=== PATIENT | female | born 1935 | race Caucasian/White ===

== ENCOUNTER 2016-07-09 19:14 | Inpatient (IN) ==
--- NOTE | 2016-07-09 19:47 | Emergency Department Note ---
Elroy Schroeder Brittany, am scribing for, and in the presence of, Marian Moreno DO 19:45. IJosh Debra, DO, personally performed the services described in this documentation, ascribed by Lizzy Abbasi in my presence, and it is both accurate and complete . Arrival - Arrival Chief Complaint: Urogenital - Female Stated Complaint: KIDNEY OR BLADDER PROBLEMS ED Nursing Triage Note: pt presented to triage via w/c with c/o vaginal bleeding /spotting noted when wiping x 4 days. also c/o pain with urination. reports low grade fever at home. tylenol last taken @ 1700 Mode of Arrival: Wheelchair Limitations: No Limitations Source: Patient, RN Notes Reviewed - History of Present Illness HPI Narrative: Ms. Fam is a 80 y/o white female with a past medical history signficant for Renal Failure presenting to the ED with c/o vaginal bleeding and dysuria with an onset of 4 days. She reports that due to her history of Renal Failure and taking Peritoneal Dialysis she makes little to no urine and has noticed the few times she's urinated some vaginal bleeding. Patient reports that with initial onset she noticed some light spotting, but over the course of the past days she has began to notice larger amounts of blood with clots engrossed within. Patient notes that she has also had a low grade fever at home as well with which she took a Tylenol at 1700 this evening. She does take an 81 mg ASA/ day, but denies taking any anticoagulants such as Heparin, Lovenox, or Plavix. She states that she does have an appointment with Dr. Lara on Monday, July 11, 2016. She is a patient of Dr. Heather Fam. Patient has a past medical history of Atrial Fibrillation, CHF, HTN, Mitral Valve Regurgitation, Anxiety Disorders, Depression, Peripheral Neuropathy, Thyroid CA, Rheumatoid Arthritis, Peritoneal Dialysis, Renal Failure, Cardiac Catheterization, Cholecystectomy, Caesarean Section x2, Hysterectomy. Onset (ago): day(s) (4) Consistency: constant Date of Last Menstrual Period: hsyt Allergies/Adverse Reactions: Allergies Allergy/AdvReac Type Severity Reaction Status Date / Time Neuromuscular Blockers, Allergy Intermediate SHORTNESS Verified 07/08/15 14:57 Steroidal OF BREATH regadenoson Allergy Mild Cough Verified 07/08/15 14:57 Sulfa (Sulfonamide Allergy Mild RASH Verified 07/08/15 14:57 Antibiotics) enalaprilat [From Vasotec] AdvReac Mild Cough Verified 07/08/15 14:57 Penicillins AdvReac Mild ITCHING Verified 07/08/15 14:57 Home Medications: Home Medications Medication Instructions Recorded Confirmed Type Magnesium Chloride [Slow Mag] 64 mg PO DAILY 07/15/14 07/09/16 History Metoprolol Succinate 25 mg PO DAILY 07/15/14 07/09/16 History Pantoprazole Tab [Protonix Tab] 40 mg PO BID 07/15/14 07/09/16 History Pentoxifylline [TRENtal] 400 mg PO BID 07/15/14 07/09/16 History Aspirin [Ecotrin] 81 mg PO DAILY 12/28/14 07/09/16 History Calcium Acetate [Phoslo] 1 tablet PO TID 05/25/15 07/09/16 History Pravastatin Sodium 20 mg PO BEDTIME 09/21/15 07/09/16 History Gabapentin 100 mg PO BEDTIME #30 capsule 09/24/15 07/09/16 Rx Diphenoxylate/Atrop 2.5-0.025 1 each PO QID PRN 10/11/15 07/09/16 History [Lomotil Tab] Isosorbide Mononitrate [Isosorbide 60 mg PO DAILY 10/11/15 07/09/16 History Mononitrate ER] Levothyroxine Tab [Synthroid Tab] 137 mcg PO 0700 10/11/15 07/09/16 History ALPRAZolam [Xanax] 0.5 mg PO BEDTIME #30 tablet 10/14/15 07/09/16 Rx Acetaminophen Tab [Tylenol Tab] 650 mg PO Q6H PRN #0 tablet 10/14/15 07/09/16 Rx Amlodipine Besylate [Amlodipine 10 mg PO DAILY 01/11/16 07/09/16 History Besylate] Calcitriol [Calcitriol] 0.5 mcg PO DAILY 01/11/16 07/09/16 History Docusate Sodium Cap [Colace Cap] 100 mg PO BID PRN 07/09/16 07/09/16 History Doxazosin [Cardura] 1 mg PO DAILY 07/09/16 07/09/16 History Hydrocodone/Acetaminophen 0.5 each PO TID 07/09/16 07/09/16 History [Hydrocodon-Acetaminoph 7.5-325] Review of System - Review of System 12 point system: reviewed and no additional remarkable complaints except as stated - Review of System Constitutional: Present: fever Eyes: Absent: vision change Head/Ears/Nose/Throat: Absent: nasal drainage, sore throat Respiratory: Absent: respiratory distress Cardiovascular: Absent: chest pain, palpitations Gastrointestinal: Absent: abdominal pain, nausea, vomiting, diarrhea, constipation, melena, hematochezia Genitourinary female: Present: as per HPI, dysuria Musculoskeletal: Absent: arm pain, back pain, leg pain, neck pain Skin: Absent: rash Neurological: Absent: headache Psychiatric: Absent: anxiety, depression Hematological/Lymphatic: Absent: easy bleeding, easy bruising Medical,Surgical,& Family Hx - Medical History Cardio: History of: Cardiac Dysrhythmia (A FIB), CHF, Hypertension, PVD, Valvular Heart Disease (mitral valve regurgitation), Cardiovascular Problems ( PVD) No history of: Aneurysm, Cerebrovascular Disease, Congenital Heart Disease, CAD, OR, Pacemaker Psychological: History of: Anxiety Disorders, Depression No history of: ADHD, Behavior Problems, Bipolar Disorder, Previous Suicide Attempt, Psychiatric/Substance Abuse Tx, Schizophrenia, Violent Behavior, Psychiatric Problems Neurology: History of: Peripheral Neuropathy No history of: Brain Aneurysm, Cerebral Hemorrhage, Cerebrovascular Accident , Cerebral Palsy, Dementia, Migraine, Multiple Sclerosis, Parkinson's Disease, Seizures, TIA, Vertigo, Neurologocal Cancer HEENT: History of: Ear Problem (GLASSES CATARACTS), Dental Problems (upper and lower dentures) No history of: Eye Problem, Glaucoma, Oral Cancer, HEENT Problems Endocrine: History of: Thyroid Disorder (CANCER RADIATION) No history of: Adrenal Disease, Diabetes Mellitus (IDDM), Diabetes Mellitus ( NIDDM), Dyslipidemia, Endocrine Cancer, Endocrine Problems Rheumatology: History of;: Rheumatoid Arthritis No history of;: Fibromyalgia, Gout, Myasthenia Gravis, Systemic Lupus Erythematosus, Rheumatological Problems Respiratory: No history of: Asthma, Bronchitis, COPD, Intubation, Obstructive Sleep Apnea , Pulmonary Embolism, Pulmonary Hypertension, Pneumonia, Lung Cancer, Respiratory Problems Renal: History of: Dialysis (PERITONEAL), Renal Failure No history of: Renal (Kidney) Cancer, Renal Problems Genitourinary: No history of: Bladder Problem, Kidney Stones, Recurring Urinary Tract Infections, Genitourinary Cancer, Problems Gastrointestinal: History of: GERD, GI Problems (nausea, vomiting, diarrhea started a week ago) No history of: Bowel Obstruction, Clostridium Difficile, Crohn's Disease, Diverticulitis/ Diverticulosis, Esophageal Varices, Gastrointestinal Bleed, Hemorrhoids, Hematochezia, Hepatitis, Liver Problems, Pancreatitis, Polyps, Ulcerative Colitis, Gastrointestinal Cancer Musculoskeletal: History of: Back/Neck Problems (chronic back pain) No history of: Amputation, Degenerative Disk Disease, Herniated Disk, Osteoporosis, Musculoskeletal Cancer, Musculoskeletal Problems Hematology: History of: Anemia, Bleeding Problems (CIRCULATION LEGS) No history of: Blood Transfusion Reaction, Clotting Problems, Sickle Cell Disease, Hematologic Cancer, Blood Disorders Reproductive: History of: Ovarian Cysts No history of: Abnormal Pap Smear, Breast Cancer, Endometriosis, Ectopic , Complication, Sexually Transmitted Disorders, Reproductive Cancer Other: History of: Skin Problems (CANCER) No history of: Anesthesia Reactions, Anaphylaxis, Cancer, Eczema, HIV, Malignant Hyperthermia, MRSA, Vancomycin-Resistant Enterococci, Miscellaneous Medical Problems - Surgical History Cardiac Surgeries: Sugical HX of: Cardiac Catheterization Patient Denies: Cardiac Surgery, Carotid Endarterectomy, Internal Defibrillator, Vascular Access Devices Comment Only: Femoral-Popliteal Bypass Graft (had arterial surgery in June) Thoracic Surgeries: Patient denies;: Kidney (Renal Surgery), Lithotripsy, Nephrectomy, Organ Transplant, Lobectomy Neurologic Surgeries: Patient denies: Brain Aneurysm, Cerebral Hemorrhage, Neurologic Surgery HEENT Surgeries: Surgical HX of: Eye Surgery (REMOVAL CATARACTS), Tonsilectomy & Adenoidectomy Patient denies: Carotid Endarterectomy, Thyroid Surgery Abdominal Surgeries: Surgical HX of: Cholecystectomy Patient denies: Abdominal Surgery, Appendectomy, Colonoscopy, Gastric Bypass Surgery, EGD, Hernia Repair, Splenectomy Reproductive Surgeries: Surgical HX of;: Section (X2), Gynecologic Surgery (hysterectomy), Hysterectomy Patient denies;: Breast Surgery, Cystoscopy, Dilation and Curettage, Genitourinary Surgery, Tubal Ligation Orthopedic Surgeries: Patient denies;: Implanted Devices, Orthopedic Surgery, Spinal Surgery, Total Hip Replacement, Total Knee Replacement - Family History Family History: Reports;: Family Cancer (sisters and a brother with lung cancer) , Family Diabetes (DAD), Family Hypertension (PARENTS), Family Stroke Denies;: Family Anesthesia Reaction, Family Heart Disease, Family Psychiatric Problems - Social History Smoking Status: Never smoker Frequency of Alcohol Use: None Type of Drug Use: None Exam Vital Signs: Vital Signs Temperature 98.3 F 07/09/16 19:20 Pulse Rate 70 07/09/16 19:20 Respiratory Rate 16 07/09/16 19:20 Blood Pressure 153/61 07/09/16 19:20 O2 Sat by Pulse Oximetry 97 07/09/16 19:20 - General General appearance: alert, in no apparent distress - Head Head exam: Present: atraumatic, normocephalic, normal inspection - Eye Eye exam: Present: normal appearance, PERRL, EOMI - ENT ENT exam: Present: normal exam, normal oropharynx - Neck Neck exam: Present: normal inspection, full ROM, trachea midline - Chest Chest inspection: Present: normal inspection, symmetric chest wall rise - Respiratory Respiratory exam: Present: normal lung sounds bilaterally. Absent: rales, rhonchi, wheezes - Cardiovascular Cardiovascular exam: Present: regular rate, normal rhythm, murmur (mid-systolic murmur). Absent: normal heart sounds - Abdominal Exam Abdominal exam: Present: soft, normal bowel sounds, other (peritoneal dialysis catheter). Absent: distention, tenderness - Extremities Exam Extremities exam: Present: normal inspection. Absent: pedal edema - Back Exam Back exam: Present: normal inspection - Neurological Exam Neurological exam: Present: alert, oriented X3, CN II-XII intact. Absent: motor sensory deficit - Psychiatric Psychiatric exam: Present: normal affect, normal mood - Skin Skin exam: Present: warm, dry, intact, normal color Course Course Narrative: spoke with DR Abbasi who will admit pt for Dr Fam. also spoke with DR Lara who will follow pt , requests peritoneal fluid for cell count and culture. will start on Ancef Results - Labs CBC & BMP: 07/09/16 19:42 07/09/16 19:42 Lab Results: I have reviewed the patients labs Labs: Laboratory Tests 07/09/16 19:42 WBC 14.7 H RBC 3.04 L Hgb 9.9 L Hct 28.2 L Plt Count 233 MPV 12.3 H Neut # (Auto) 9.6 H [place] # (Auto) 1.2 H Laboratory Tests 07/09/16 07/09/16 19:42 19:42 INR 1.0 PT Patient/Control Mix 10.4 Circ Anticoag PTT 24.7 D Sodium 136 Potassium 3.8 Chloride 95 L Carbon Dioxide 30 BUN 37 H Creatinine 7.80 H BUN/Creatinine Ratio 4.00 L Calcium 9.7 ALT 11 L Total Protein 6.0 L Albumin 2.5 L Globulin 3.5 Albumin/Globulin Ratio 0.7 L Laboratory Tests 07/09/16 19:42 Blood Type A NEGATIVE Antibody Screen Negative - Diagnostic Findings Procedure: CT Abdomen and Pelvis: report reviewed by me (1. There is a peritoneal dialysis catheter. 2. There is a 3.2 x 2.1 cm periumbilical hernia containing fat. There is moderate wall thickening of the periumbilical hernia, which could be scarring, edema, or inflammation/infection. Recommend clinical correlation. 3. There is a small amount of scattered free peritoneal gas in the abdominal cavity and in the umbilical hernia, which is probably secondary to peritoneal dialysis. Bowel perforation can not be excluded in the presence of free peritoneal air. 4. There is a moderate amount of ascites. 5. There is mild nonspecific anterior intra-abdominal fat stranding, suggesting edema or inflammation/infection including peritonitis. 6. There is mild right hydronephrosis and ureterectasis. 7. There are vague hyperdensity in the right renal collecting system and the right ureter. There is a layering dependent hyperdensity in the bladder. Findings suggest blood in the right urinary tract and in the bladder. Recommend for further workup. 8. There is a tiny right pleural effusion. 9. There is a severe and diffuse narrowing of the left iliac arteries and the left common femoral artery.) Disposition Clinical Impression: Leukocytosis, Peritonitis associated with peritoneal dialysis, Vaginal bleeding Case discussed with: patient, patient's family Disposition: Still a Patient Condition: Stable Time of Disposition: 22:48
[2016-07-09 20:03] LABS: Basophils # 0.1 10*3/uL (0.0-0.2); Basophils % 0.5 % (0.0-0.8); Eosinophils # 0.4 10*3/uL (0.0-0.87); Eosinophils % 2.9 % (0.00-10.9); Hematocrit 28.2 VOL% (35.7-47.0); Hemoglobin 9.9 GM/DL (12.0-16.0); Immature Granulocytes % 0.4 %; Immature Granulocytes Absolute 0.06 #; Lymphocytes # 3.4 10*3/uL (1.4-4.0); Lymphocytes % 22.9 % (21.3-54.2); Mean Corpuscular HGB Conc 35.1 GM/DL (32-36); Mean Corpuscular Hemoglobin 33 PG (27-34); Mean Corpuscular Volume 92.8 FL (87-102); Mean Platelet Volume 12.3 FL (9.6-12.0); Monocytes # 1.2 10*3/uL (0.11-0.8); Monocytes % 8.3 % (1.7-12.7); Neutrophils # 9.6 10*3/uL (1.4-7.4); Platelet Count 233 T/CUMM (130-400); Red Blood Count 3.04 MC/CUMM (3.8-5.5); Red Cell Distribution Width 15.8 % (9.3-17.3); White Blood Count 14.7 T/CUMM (4-12)
[2016-07-09 20:11] LABS: PT Patient Result 10.4 SECS; Partial Thromboplastin Time 24.7 SECS (0-40)
[2016-07-09 20:20] LABS: Alanine Aminotransferase 11 U/L (13-56); Albumin 2.5 G/DL (3.4-5.0); Alkaline Phosphatase 57 U/L (45-117); Aspartate Amino Transferase 17 U/L (0-37); Bilirubin,Total < 0.39 MG/DL (0.2-1.0); Blood Urea Nitrogen 37 MG/DL (7-18); Calcium 9.7 MG/DL (8.5-10.1); Glucose 86 MG/DL (74-106); Potassium 3.8 MMOL/L (3.5-5.1); Sodium 136 MMOL/L (136-145)
[2016-07-09] MEDS ORDERED: ACETAMINOPHEN 325 MG TABLET PO PRN (22:48)
[2016-07-09] MEDS ORDERED: ONDANSETRON 4 MG/2 ML VIAL IV PRN (22:48)
[2016-07-09] MEDS ORDERED: MORPHINE 2 MG/1 ML SYRINGE IV PRN (22:48)
[2016-07-09] MEDS ORDERED: GABAPENTIN 100 MG CAPSULE PO ONE (22:56)
[2016-07-09] MEDS ORDERED: GABAPENTIN 100 MG CAPSULE ONE (22:57)
[2016-07-10] MEDS: SODIUM CHLORIDE 0.9% 1,000 ML IV SCH ×2 (00:36→11:44)
[2016-07-10 02:16] LABS: Neutrophils,Peritoneal Fluid 9 %; RBC,Peritoneal Fluid < 1 T/CUMM
--- NOTE | 2016-07-10 06:11 | CT Report ---
Referring physician: Marian Moreno DO EXAM: CT abdomen and pelvis without contrast DATE: July 09, 2016 COMPARISON: CT abdomen with contrast February 26, 2015 REASON: Vaginal bleeding, elevated white blood cell count TECHNIQUE: Axial images of the abdomen and pelvis were obtained without the use of contrast. Coronal and sagittal reformatted images were also provided. Total DLP is 308.4 mGy*cm. FINDINGS: Lower thorax: There is calcification at the mitral annulus and the calcified granulomas at the lung bases. Scattered bibasilar opacities are also present, likely representing atelectasis and possibly pulmonary edema. There is also minimal bilateral pleural fluid. ABDOMEN: Liver: No suspicious hepatic lesion is identified on this noncontrast study. Gallbladder and bile ducts: The patient is status post cholecystectomy. The common bile duct is prominent but stable, likely secondary to the cholecystectomy status. Pancreas: Unremarkable. Spleen: The spleen is not identified and has likely been surgically resected. Adrenals: Unremarkable. Kidneys and ureters: The kidneys are atrophic, and there are vascular calcifications at the renal ubaldo bilaterally. There is also mild right hydronephrosis. Ill-defined hyperdensity is seen within the right renal collecting system and right ureter and could represent blood products, debris or contrast from a previous study. No definite renal or ureteral calculi are identified. PELVIS: Bladder: There is layering, dependent hyperdensity within the bladder. This could represent blood products, debris or contrast from a previous study. Reproductive: The uterus is not identified, suggesting hysterectomy. The ovaries are not identified. ABDOMEN AND PELVIS: Bowel: There is no evidence of bowel obstruction and no convincing evidence of bowel inflammation. Appendix: The appendix is not identified. Vasculature: The abdominal aorta is ectatic, measuring 2.3 cm below the renal arteries. Prominent calcified plaque is seen at the arteries, particularly at the left iliac arteries and left common femoral artery which appear small in caliber. Stents are noted at the right common iliac artery and right external iliac artery. Peritoneum: There is moderate ascites, which may be related to peritoneal dialysis. A catheter is seen entering at the right lower quadrant with its distal tip curled within the left lower quadrant. This could represent a peritoneal dialysis catheter. Lymph nodes: No suspicious adenopathy is seen. Abdominal/pelvic wall: There is a small fat-containing umbilical hernia as well as a small fat-containing periumbilical hernia. Soft tissue thickening is seen along the margins of the hernias and could represent scarring, edema or inflammation/infection. Minimal air is also seen within the periumbilical hernia, and there is small amount of scattered intraperitoneal air. This could be related to peritoneal dialysis. Mild fat stranding is seen at the right groin and is suspected represent surgical change/scarring. Bones: There is degenerative change at the spine and mild scoliosis. No acute osseous process is seen. IMPRESSION: 1. A peritoneal dialysis catheter is in place, and there is moderate ascites. 2. Minimal air is seen within the periumbilical hernia, and there is small amount of scattered intraperitoneal air. This could be related to peritoneal dialysis, but bowel perforation cannot be excluded. 3. There are small fat-containing umbilical and periumbilical hernias. Soft tissue thickening is seen along the margins of the hernias and could represent scarring, edema or inflammation/infection. Please correlate with clinical findings 4. The kidneys are atrophic. There is also mild right hydronephrosis. 5. Vague hyperdensity is seen within the right renal collecting system and right ureter. There is also layering dependent hyperdensity within the bladder. This could represent blood products, debris or contrast from a recent procedure. 6. Minimal bilateral pleural effusions. There are also mild scattered opacities at both lung bases, likely representing atelectasis and possibly pulmonary edema. 7. There is extensive calcified plaque at the arteries and diffuse narrowing of the left iliac arteries and left common femoral artery. The CT exam was performed using one or more of the following dose reduction techniques: Automated exposure control and adjustment of the mA and/or kV according to patient size. PROCEDURE INTERPRETED AT [facility] DEPARTMENT OF RADIOLOGY Final Report Signed by: Dr. Aryan Horne
[2016-07-10 06:22] LABS: Basophils # 0.1 10*3/uL (0.0-0.2); Basophils % 0.6 % (0.0-0.8); Eosinophils # 0.4 10*3/uL (0.0-0.87); Hematocrit 23.9 VOL% (35.7-47.0); Hemoglobin 8.1 GM/DL (12.0-16.0); Immature Granulocytes % 0.5 %; Immature Granulocytes Absolute 0.05 #; Lymphocytes # 3.1 10*3/uL (1.4-4.0); Lymphocytes % 28.4 % (21.3-54.2); Mean Corpuscular HGB Conc 33.9 GM/DL (32-36); Mean Corpuscular Hemoglobin 32 PG (27-34); Mean Corpuscular Volume 94.8 FL (87-102); Mean Platelet Volume 12.8 FL (9.6-12.0); Monocytes % 9.4 % (1.7-12.7); Neutrophils # 6.2 10*3/uL (1.4-7.4); Neutrophils % 57.1 % (38.7-73.9); Platelet Count 205 T/CUMM (130-400); Red Blood Count 2.52 MC/CUMM (3.8-5.5); White Blood Count 10.9 T/CUMM (4-12)
[2016-07-10 06:42] LABS: Alanine Aminotransferase < 9 U/L (13-56); Alkaline Phosphatase 47 U/L (45-117); Aspartate Amino Transferase 11 U/L (0-37); Blood Urea Nitrogen 39 MG/DL (7-18); Calcium 9.3 MG/DL (8.5-10.1); Glucose 75 MG/DL (74-106); Osmolality,Calculated 282.7 MOS/KG (273-304); Potassium 3.5 MMOL/L (3.5-5.1); Sodium 138 MMOL/L (136-145); Total Protein 4.7 G/DL (6.4-8.3)
[2016-07-10] MEDS: DOCUSATE SODIUM 100 MG CAPSULE PO SCH ×2 (08:33→20:31)
[2016-07-10] MEDS: PANTOPRAZOLE 40 MG TABLET PO SCH (08:33)
[2016-07-10 18:11] LABS: Hematocrit 29.2 VOL% (35.7-47.0); Hemoglobin 9.9 GM/DL (12.0-16.0)
--- NOTE | 2016-07-10 18:34 | Internal Med History&Physical ---
Assessment and Plan (1) Hematuria Status: Acute Current Visit: Yes (2) Debility Status: Chronic Current Visit: No (3) ESRD on peritoneal dialysis Status: Chronic Current Visit: Yes (4) Hypertension Status: Chronic Current Visit: No Qualifiers: Hypertension type: essential hypertension Qualified Code(s): I10 - Essential (primary) hypertension History of Present Illness Chief complaint: acute hematuria History of present illness: Ms. Fam is a 80 year old female with history of HTN, atherosclerotic disease, ESRD on peritoneal dialysis per Dr. Lara, anemia of chronic disease, OA, generalized weakness, history of falls, hypothyroid status post thyroid resection, history thyroid cancer, radiation therapy, who presented to ER with acute hematuria. She has had associated flank and back pain which resolved as of earlier today. Thought to be kidney stone. Dr. Morgan Landeros has been consulted. She has been receiving fluids. Home Medications Medication Instructions Recorded Confirmed Type Magnesium Chloride [Slow Mag] 64 mg PO DAILY 07/15/14 07/09/16 History Metoprolol Succinate 25 mg PO DAILY 07/15/14 07/09/16 History Pantoprazole Tab [Protonix Tab] 40 mg PO BID 07/15/14 07/09/16 History Pentoxifylline [TRENtal] 400 mg PO BID 07/15/14 07/09/16 History Aspirin [Ecotrin] 81 mg PO DAILY 12/28/14 07/09/16 History Calcium Acetate [Phoslo] 1 tablet PO TID 05/25/15 07/09/16 History Pravastatin Sodium 20 mg PO DAILY 09/21/15 07/10/16 History Gabapentin 100 mg PO BEDTIME #30 capsule 09/24/15 07/09/16 Rx Diphenoxylate/Atrop 2.5-0.025 1 each PO QID PRN 10/11/15 07/09/16 History [Lomotil Tab] Isosorbide Mononitrate [Isosorbide 60 mg PO DAILY 10/11/15 07/09/16 History Mononitrate ER] Levothyroxine Tab [Synthroid Tab] 137 mcg PO 0700 10/11/15 07/09/16 History ALPRAZolam [Xanax] 0.5 mg PO BEDTIME #30 tablet 10/14/15 07/09/16 Rx Acetaminophen Tab [Tylenol Tab] 650 mg PO Q6H PRN #0 tablet 10/14/15 07/09/16 Rx Amlodipine Besylate [Amlodipine 10 mg PO DAILY 01/11/16 07/09/16 History Besylate] Calcitriol [Calcitriol] 0.5 mcg PO DAILY 01/11/16 07/09/16 History Docusate Sodium Cap [Colace Cap] 100 mg PO BID PRN 07/09/16 07/09/16 History Doxazosin [Cardura] 1 mg PO DAILY 07/09/16 07/09/16 History Hydrocodone/Acetaminophen 0.5 each PO TID 07/09/16 07/09/16 History [Hydrocodon-Acetaminoph 7.5-325] Allergies Allergy/AdvReac Type Severity Reaction Status Date / Time Neuromuscular Blockers, Allergy Intermediate SHORTNESS Verified 07/08/15 14:57 Steroidal OF BREATH regadenoson Allergy Mild Cough Verified 07/08/15 14:57 Sulfa (Sulfonamide Allergy Mild RASH Verified 07/08/15 14:57 Antibiotics) enalaprilat [From Vasotec] AdvReac Mild Cough Verified 07/08/15 14:57 Penicillins AdvReac Mild ITCHING Verified 07/08/15 14:57 Medical,Surgical,& Family Hx - Medical History Cardio: History of: Cardiac Dysrhythmia (A FIB), CHF, Hypertension, PVD, Valvular Heart Disease (mitral valve regurgitation), Cardiovascular Problems ( PVD) No history of: Aneurysm, Cerebrovascular Disease, Congenital Heart Disease, CAD, [place], Pacemaker Psychological: History of: Anxiety Disorders, Depression No history of: ADHD, Behavior Problems, Bipolar Disorder, Previous Suicide Attempt, Psychiatric/Substance Abuse Tx, Schizophrenia, Violent Behavior, Psychiatric Problems Neurology: History of: Peripheral Neuropathy No history of: Brain Aneurysm, Cerebral Hemorrhage, Cerebrovascular Accident , Cerebral Palsy, Dementia, Migraine, Multiple Sclerosis, Parkinson's Disease, Seizures, TIA, Vertigo, Neurologocal Cancer HEENT: History of: Ear Problem (GLASSES CATARACTS), Dental Problems (upper and lower dentures) No history of: Eye Problem, Glaucoma, Oral Cancer, HEENT Problems Endocrine: History of: Thyroid Disorder (CANCER RADIATION) No history of: Adrenal Disease, Diabetes Mellitus (IDDM), Diabetes Mellitus ( NIDDM), Dyslipidemia, Endocrine Cancer, Endocrine Problems Rheumatology: History of;: Rheumatoid Arthritis No history of;: Fibromyalgia, Gout, Myasthenia Gravis, Systemic Lupus Erythematosus, Rheumatological Problems Respiratory: No history of: Asthma, Bronchitis, COPD, Intubation, Obstructive Sleep Apnea , Pulmonary Embolism, Pulmonary Hypertension, Pneumonia, Lung Cancer, Respiratory Problems Renal: History of: Dialysis (PERITONEAL), Renal Failure No history of: Renal (Kidney) Cancer, Renal Problems Genitourinary: No history of: Bladder Problem, Kidney Stones, Recurring Urinary Tract Infections, Genitourinary Cancer, Problems Gastrointestinal: History of: GERD, GI Problems (nausea, vomiting, diarrhea started a week ago) No history of: Bowel Obstruction, Clostridium Difficile, Crohn's Disease, Diverticulitis/ Diverticulosis, Esophageal Varices, Gastrointestinal Bleed, Hemorrhoids, Hematochezia, Hepatitis, Liver Problems, Pancreatitis, Polyps, Ulcerative Colitis, Gastrointestinal Cancer Musculoskeletal: History of: Back/Neck Problems (chronic back pain) No history of: Amputation, Degenerative Disk Disease, Herniated Disk, Osteoporosis, Musculoskeletal Cancer, Musculoskeletal Problems Hematology: History of: Anemia, Bleeding Problems (CIRCULATION LEGS) No history of: Blood Transfusion Reaction, Clotting Problems, Sickle Cell Disease, Hematologic Cancer, Blood Disorders Reproductive: History of: Ovarian Cysts No history of: Abnormal Pap Smear, Breast Cancer, Endometriosis, Ectopic , Complication, Sexually Transmitted Disorders, Reproductive Cancer Other: History of: Skin Problems (CANCER) No history of: Anesthesia Reactions, Anaphylaxis, Cancer, Eczema, HIV, Malignant Hyperthermia, MRSA, Vancomycin-Resistant Enterococci, Miscellaneous Medical Problems - Surgical History Cardiac Surgeries: Sugical HX of: Cardiac Catheterization Patient Denies: Cardiac Surgery, Carotid Endarterectomy, Internal Defibrillator, Vascular Access Devices Comment Only: Femoral-Popliteal Bypass Graft (had arterial surgery in June) Thoracic Surgeries: Patient denies;: Kidney (Renal Surgery), Lithotripsy, Nephrectomy, Organ Transplant, Lobectomy Neurologic Surgeries: Patient denies: Brain Aneurysm, Cerebral Hemorrhage, Neurologic Surgery HEENT Surgeries: Surgical HX of: Eye Surgery (REMOVAL CATARACTS), Tonsilectomy & Adenoidectomy Patient denies: Carotid Endarterectomy, Thyroid Surgery Abdominal Surgeries: Surgical HX of: Cholecystectomy Patient denies: Abdominal Surgery, Appendectomy, Colonoscopy, Gastric Bypass Surgery, EGD, Hernia Repair, Splenectomy Reproductive Surgeries: Surgical HX of;: Section (X2), Gynecologic Surgery (hysterectomy), Hysterectomy Patient denies;: Breast Surgery, Cystoscopy, Dilation and Curettage, Genitourinary Surgery, Tubal Ligation Orthopedic Surgeries: Patient denies;: Implanted Devices, Orthopedic Surgery, Spinal Surgery, Total Hip Replacement, Total Knee Replacement Additional Surgical History: thyroidectomy - Family History Family History: Reports;: Family Cancer (sisters and a brother with lung cancer) , Family Diabetes (DAD), Family Hypertension (PARENTS), Family Stroke Denies;: Family Anesthesia Reaction, Family Heart Disease, Family Psychiatric Problems - Social History Smoking Status: Never smoker Frequency of Alcohol Use: None Type of Drug Use: None Marital Status: Lives With:: Spouse Functional capacity: uses cane/walker - Constitutional Constitutional: Present: fatigue - Cardiovascular Cardiovascular: Absent: chest pain at rest - Respiratory Respiratory: Absent: dyspnea on exertion - Gastrointestinal Gastrointestinal: Present: abdominal pain, nausea - Genitourinary Genitourinary: Present: flank pain, hematuria - Musculoskeletal Musculoskeletal: Present: arthralgias Exam - Constitutional Vitals: Period Temp Pulse Resp BP Sys/Sky Pulse Ox Last 24 Hr 97.4 F-98.8 F 64-81 12-18 128-168/56-91 92-98 General appearance: no acute distress - Head Head exam: Present: normocephalic - Eye Eye exam: Present: EOMI - Respiratory Respiratory exam: Present: clear to auscultation bilaterally. Absent: rales, rhonchi, wheezes - Cardiovascular Cardiovascular exam: Present: regular rate and rhythm - GI/Abdominal GI/Abdominal exam: Present: normal bowel sounds, soft. Absent: tenderness - Extremities Exam Extremities exam: Absent: edema - Neurological Exam Neurological exam: Present: alert, oriented X3, CN II-XII intact - Psychiatric Psychiatric exam: Present: normal affect, normal mood - Skin Skin exam: Present: warm, dry Results - Labs CBC & BMP: 07/11/16 07:25 07/11/16 07:25 - Diagnostic Findings Procedure: CT Abdomen and Pelvis: report reviewed by me (mild right hydronephrosis)
[2016-07-10] MEDS ORDERED: DOCUSATE SODIUM 100 MG CAPSULE PO PRN (18:49)
[2016-07-10] MEDS ORDERED: DIPHENOXYLATE/ATROPINE 2.5-0.025 MG TABLET PO PRN (18:49)
[2016-07-10] MEDS ORDERED: ACETAMINOPHEN 325 MG TABLET PO PRN (18:49)
[2016-07-10] MEDS: CALCIUM ACETATE 667 MG CAPSULE PO SCH (20:31)
[2016-07-10] MEDS: PENTOXIFYLLINE 400 MG TABLET PO SCH (20:31)
--- NOTE | 2016-07-10 20:53 | Nephrology Consult Note ---
History of Present Illness Chief complaint: ESRD, hematuria History of present illness: Ms. Fam is a 80 year old female with ESRD on peritoneal dialysis who presented with a four-day history of intermittent dysuria and hematuria. She has had a low-grade fever but no chills. She reports some mild right lower quadrant tenderness. She has had no difficulty with her PD exchanges. PD fluid has remained clear. She denies nausea. She has had no shortness of breath or chest pain. Home Medications Medication Instructions Recorded Confirmed Type Magnesium Chloride [Slow Mag] 64 mg PO DAILY 07/15/14 07/09/16 History Metoprolol Succinate 25 mg PO DAILY 07/15/14 07/09/16 History Pantoprazole Tab [Protonix Tab] 40 mg PO BID 07/15/14 07/09/16 History Pentoxifylline [TRENtal] 400 mg PO BID 07/15/14 07/09/16 History Aspirin [Ecotrin] 81 mg PO DAILY 12/28/14 07/09/16 History Calcium Acetate [Phoslo] 1 tablet PO TID 05/25/15 07/09/16 History Pravastatin Sodium 20 mg PO DAILY 09/21/15 07/10/16 History Gabapentin 100 mg PO BEDTIME #30 capsule 09/24/15 07/09/16 Rx Diphenoxylate/Atrop 2.5-0.025 1 each PO QID PRN 10/11/15 07/09/16 History [Lomotil Tab] Isosorbide Mononitrate [Isosorbide 60 mg PO DAILY 10/11/15 07/09/16 History Mononitrate ER] Levothyroxine Tab [Synthroid Tab] 137 mcg PO 0700 10/11/15 07/09/16 History ALPRAZolam [Xanax] 0.5 mg PO BEDTIME #30 tablet 10/14/15 07/09/16 Rx Acetaminophen Tab [Tylenol Tab] 650 mg PO Q6H PRN #0 tablet 10/14/15 07/09/16 Rx Amlodipine Besylate [Amlodipine 10 mg PO DAILY 01/11/16 07/09/16 History Besylate] Calcitriol [Calcitriol] 0.5 mcg PO DAILY 01/11/16 07/09/16 History Docusate Sodium Cap [Colace Cap] 100 mg PO BID PRN 07/09/16 07/09/16 History Doxazosin [Cardura] 1 mg PO DAILY 07/09/16 07/09/16 History Hydrocodone/Acetaminophen 0.5 each PO TID 07/09/16 07/09/16 History [Hydrocodon-Acetaminoph 7.5-325] Allergies Allergy/AdvReac Type Severity Reaction Status Date / Time Neuromuscular Blockers, Allergy Intermediate SHORTNESS Verified 07/08/15 14:57 Steroidal OF BREATH regadenoson Allergy Mild Cough Verified 07/08/15 14:57 Sulfa (Sulfonamide Allergy Mild RASH Verified 07/08/15 14:57 Antibiotics) enalaprilat [From Vasotec] AdvReac Mild Cough Verified 07/08/15 14:57 Penicillins AdvReac Mild ITCHING Verified 07/08/15 14:57 Medical,Surgical,& Family Hx - Medical History Cardio: History of: Cardiac Dysrhythmia (A FIB), CHF, Hypertension, PVD, Valvular Heart Disease (mitral valve regurgitation), Cardiovascular Problems ( PVD) No history of: Aneurysm, Cerebrovascular Disease, Congenital Heart Disease, CAD, [place], Pacemaker Psychological: History of: Anxiety Disorders, Depression No history of: ADHD, Behavior Problems, Bipolar Disorder, Previous Suicide Attempt, Psychiatric/Substance Abuse Tx, Schizophrenia, Violent Behavior, Psychiatric Problems Neurology: History of: Peripheral Neuropathy No history of: Brain Aneurysm, Cerebral Hemorrhage, Cerebrovascular Accident , Cerebral Palsy, Dementia, Migraine, Multiple Sclerosis, Parkinson's Disease, Seizures, TIA, Vertigo, Neurologocal Cancer HEENT: History of: Ear Problem (GLASSES CATARACTS), Dental Problems (upper and lower dentures) No history of: Eye Problem, Glaucoma, Oral Cancer, HEENT Problems Endocrine: History of: Thyroid Disorder (CANCER RADIATION) No history of: Adrenal Disease, Diabetes Mellitus (IDDM), Diabetes Mellitus ( NIDDM), Dyslipidemia, Endocrine Cancer, Endocrine Problems Rheumatology: History of;: Rheumatoid Arthritis No history of;: Fibromyalgia, Gout, Myasthenia Gravis, Systemic Lupus Erythematosus, Rheumatological Problems Respiratory: No history of: Asthma, Bronchitis, COPD, Intubation, Obstructive Sleep Apnea , Pulmonary Embolism, Pulmonary Hypertension, Pneumonia, Lung Cancer, Respiratory Problems Renal: History of: Dialysis (PERITONEAL), Renal Failure No history of: Renal (Kidney) Cancer, Renal Problems Genitourinary: No history of: Bladder Problem, Kidney Stones, Recurring Urinary Tract Infections, Genitourinary Cancer, Problems Gastrointestinal: History of: GERD, GI Problems (nausea, vomiting, diarrhea started a week ago) No history of: Bowel Obstruction, Clostridium Difficile, Crohn's Disease, Diverticulitis/ Diverticulosis, Esophageal Varices, Gastrointestinal Bleed, Hemorrhoids, Hematochezia, Hepatitis, Liver Problems, Pancreatitis, Polyps, Ulcerative Colitis, Gastrointestinal Cancer Musculoskeletal: History of: Back/Neck Problems (chronic back pain) No history of: Amputation, Degenerative Disk Disease, Herniated Disk, Osteoporosis, Musculoskeletal Cancer, Musculoskeletal Problems Hematology: History of: Anemia, Bleeding Problems (CIRCULATION LEGS) No history of: Blood Transfusion Reaction, Clotting Problems, Sickle Cell Disease, Hematologic Cancer, Blood Disorders Reproductive: History of: Ovarian Cysts No history of: Abnormal Pap Smear, Breast Cancer, Endometriosis, Ectopic , Complication, Sexually Transmitted Disorders, Reproductive Cancer Other: History of: Skin Problems (CANCER) No history of: Anesthesia Reactions, Anaphylaxis, Cancer, Eczema, HIV, Malignant Hyperthermia, MRSA, Vancomycin-Resistant Enterococci, Miscellaneous Medical Problems - Surgical History Cardiac Surgeries: Sugical HX of: Cardiac Catheterization Patient Denies: Cardiac Surgery, Carotid Endarterectomy, Internal Defibrillator, Vascular Access Devices Comment Only: Femoral-Popliteal Bypass Graft (had arterial surgery in June) Thoracic Surgeries: Patient denies;: Kidney (Renal Surgery), Lithotripsy, Nephrectomy, Organ Transplant, Lobectomy Neurologic Surgeries: Patient denies: Brain Aneurysm, Cerebral Hemorrhage, Neurologic Surgery HEENT Surgeries: Surgical HX of: Eye Surgery (REMOVAL CATARACTS), Tonsilectomy & Adenoidectomy Patient denies: Carotid Endarterectomy, Thyroid Surgery Abdominal Surgeries: Surgical HX of: Cholecystectomy Patient denies: Abdominal Surgery, Appendectomy, Colonoscopy, Gastric Bypass Surgery, EGD, Hernia Repair, Splenectomy Reproductive Surgeries: Surgical HX of;: Section (X2), Gynecologic Surgery (hysterectomy), Hysterectomy Patient denies;: Breast Surgery, Cystoscopy, Dilation and Curettage, Genitourinary Surgery, Tubal Ligation Orthopedic Surgeries: Patient denies;: Implanted Devices, Orthopedic Surgery, Spinal Surgery, Total Hip Replacement, Total Knee Replacement - Family History Family History: Reports;: Family Cancer (sisters and a brother with lung cancer) , Family Diabetes (DAD), Family Hypertension (PARENTS), Family Stroke Denies;: Family Anesthesia Reaction, Family Heart Disease, Family Psychiatric Problems - Social History Smoking Status: Never smoker Frequency of Alcohol Use: None Type of Drug Use: None Review of Systems 12 point system: reviewed and no additional remarkable complaints except as stated Exam - Vital Signs Vital signs: Period Temp Pulse Resp BP Sys/Sky Pulse Ox Last 24 Hr 97.4 F-98.8 F 64-81 12-18 128-168/56-91 92-98 Exam: Gen.: Alert and oriented x3. ENT: Pupils equal round reactive to light. EOMs intact. Mucous membranes moist. Neck: Supple. No JVD or bruit. Cardiovascular: Regular rate and rhythm. No murmur rub or gallop Lungs: Clear Abdomen: Soft. Nontender. Positive bowel sounds. No organomegaly. No CVA tenderness. PD catheter shows no sign of infection Extremities: No edema Results - Labs CBC & BMP: 07/10/16 18:05 07/10/16 05:42 Assessment and Plan (1) ESRD on peritoneal dialysis Status: Chronic Assessment and plan: 80-year-old woman admitted with: * ESRD. She is on peritoneal dialysis. Volume status normal. No clinical signs of peritonitis. PD fluid WBC 19 * Hematuria. Today she had some right-sided pelvic pain followed by gross hematuria and relief of her pain. CT scan showed? Blood in right ureter and mild hydronephrosis. Urology has been consulted * Paroxysmal SVT * Peripheral vascular disease * Hypertension. Controlled Current Visit: No (2) Hematuria Status: Acute Current Visit: Yes (3) Hypertension Status: Chronic Current Visit: No Qualifiers: Hypertension type: essential hypertension Qualified Code(s): I10 - Essential (primary) hypertension (4) PAF (paroxysmal atrial fibrillation) Status: Chronic Current Visit: No (5) Peripheral vascular disease Status: Chronic Current Visit: No (6) Rheumatoid arthritis Status: Chronic Current Visit: No Qualifiers: Rheumatoid arthritis location: knee Laterality: bilateral
[2016-07-11] MEDS: SODIUM CHLORIDE 0.9% 1,000 ML IV SCH ×2 (00:40→11:52)
[2016-07-11 07:48] LABS: Basophils # 0.1 10*3/uL (0.0-0.2); Basophils % 0.5 % (0.0-0.8); Eosinophils # 0.2 10*3/uL (0.0-0.87); Eosinophils % 1.4 % (0.00-10.9); Hematocrit 30.8 VOL% (35.7-47.0); Hemoglobin 10.7 GM/DL (12.0-16.0); Immature Granulocytes % 0.5 %; Immature Granulocytes Absolute 0.08 #; Lymphocytes # 2.2 10*3/uL (1.4-4.0); Lymphocytes % 14.6 % (21.3-54.2); Mean Corpuscular HGB Conc 34.7 GM/DL (32-36); Mean Corpuscular Hemoglobin 33 PG (27-34); Mean Corpuscular Volume 94.5 FL (87-102); Mean Platelet Volume 12.8 FL (9.6-12.0); Monocytes % 6.4 % (1.7-12.7); Neutrophils # 11.4 10*3/uL (1.4-7.4); Neutrophils % 76.6 % (38.7-73.9); Platelet Count 256 T/CUMM (130-400); Red Blood Count 3.26 MC/CUMM (3.8-5.5); Red Cell Distribution Width 15.7 % (9.3-17.3); White Blood Count 14.9 T/CUMM (4-12)
[2016-07-11 08:15] LABS: Alanine Aminotransferase < 6 U/L (13-56); Albumin 2.5 G/DL (3.4-5.0); Alkaline Phosphatase 68 U/L (45-117); Aspartate Amino Transferase 16 U/L (0-37); Blood Urea Nitrogen 40 MG/DL (7-18); Cholesterol 171 MG/DL (50-200); Glucose 132 MG/DL (74-106); HDL Cholesterol 76 MG/DL (40-60); Magnesium 2.5 MG/DL (1.8-2.4); Phosphorous 5.7 MG/DL (2.5-4.9); Risk Ratio 2.25; Sodium 136 MMOL/L (136-145); Total Protein 6.5 G/DL (6.4-8.3); Triglycerides 55 MG/DL (2-150)
[2016-07-11] MEDS ORDERED: ASPIRIN EC 81 MG TABLET PO SCH (09:00)
[2016-07-11] MEDS: DOXAZOSIN 1 MG TABLET PO SCH (09:22)
[2016-07-11] MEDS: amLODIPine 10 MG TABLET PO SCH (09:24)
[2016-07-11] MEDS: CALCITRIOL 0.5 MCG CAPSULE PO SCH (09:24)
[2016-07-11] MEDS: CALCIUM ACETATE 667 MG CAPSULE PO SCH ×3 (09:24→20:53)
[2016-07-11] MEDS: METOPROLOL SUCCINATE XL 25 MG TABLET PO SCH (09:24)
[2016-07-11] MEDS: DOCUSATE SODIUM 100 MG CAPSULE PO SCH ×2 (09:24→20:53)
[2016-07-11] MEDS: PENTOXIFYLLINE 400 MG TABLET PO SCH (09:25)
[2016-07-11] MEDS: ISOSORBIDE MONONITRATE 60 MG TABLET PO SCH (09:25)
[2016-07-11] MEDS: PANTOPRAZOLE 40 MG TABLET PO SCH (09:25)
--- NOTE | 2016-07-11 11:24 | Urology Consultation ---
Assessment and Plan - Time spent with patient Time spent with patient: Greater than 30 minutes (1) Mass of right kidney Status: Acute Current Visit: Yes (2) Hematuria Status: Acute Assessment and plan: Needs ureteroscopy but we will consult cardiology and anesthesia. Question of scheduling and probably have to wait till next week or so. Current Visit: Yes History of Present Illness - Data of Consult Patient: new to practice Consult date: 07/11/16 Requesting Physician: Heather Fam - Consult Narrative Reason for consult: Hematuria, right hydronephrosis, right ureteral/renal pelvic mass History of present illness: Ms. Fam is a 81 year old female who I know her briefly because I know her is a patient. She been on peritoneal dialysis for 6 years. Recently she said sounds like gross hematuria. She voids about once a day and apparently has been a lot of congealed blood. She does void at times that is clear. She was a smoker quit about 20 years but she has a [id number] history of smoking. She has had some right flank pain. She was admitted for hematuria. CT scan reveals a mass in the right proximal ureter/renal pelvis with mild hydronephrosis. No stones seen. She needs ureteroscopy. Apparently she has a difficult time with recovery from anesthetics and I think it is related to peritoneal dialysis with her slow elimination of the anesthetics compared to hemo-. She also sees cardiology which we will ask him to come by. Difficulty with time frame as by next few days I have a very busy schedule and then on the Sunday I am out of town. So will probably be next week at the earliest or may be even a week after for acute get to schedule this. I will consult Dr. Sorto consult anesthesia preparation. CC: Heather Fam, DO - Home Medications and Allergies Home Medications: Home Medications Medication Instructions Recorded Confirmed Type Magnesium Chloride [Slow Mag] 64 mg PO DAILY 07/15/14 07/09/16 History Metoprolol Succinate 25 mg PO DAILY 07/15/14 07/09/16 History Pantoprazole Tab [Protonix Tab] 40 mg PO BID 07/15/14 07/09/16 History Pentoxifylline [TRENtal] 400 mg PO BID 07/15/14 07/09/16 History Aspirin [Ecotrin] 81 mg PO DAILY 12/28/14 07/09/16 History Calcium Acetate [Phoslo] 1 tablet PO TID 05/25/15 07/09/16 History Pravastatin Sodium 20 mg PO DAILY 09/21/15 07/10/16 History Gabapentin 100 mg PO BEDTIME #30 capsule 09/24/15 07/09/16 Rx Diphenoxylate/Atrop 2.5-0.025 1 each PO QID PRN 10/11/15 07/09/16 History [Lomotil Tab] Isosorbide Mononitrate [Isosorbide 60 mg PO DAILY 10/11/15 07/09/16 History Mononitrate ER] Levothyroxine Tab [Synthroid Tab] 137 mcg PO 0700 10/11/15 07/09/16 History ALPRAZolam [Xanax] 0.5 mg PO BEDTIME #30 tablet 10/14/15 07/09/16 Rx Acetaminophen Tab [Tylenol Tab] 650 mg PO Q6H PRN #0 tablet 10/14/15 07/09/16 Rx Amlodipine Besylate [Amlodipine 10 mg PO DAILY 01/11/16 07/09/16 History Besylate] Calcitriol [Calcitriol] 0.5 mcg PO DAILY 01/11/16 07/09/16 History Docusate Sodium Cap [Colace Cap] 100 mg PO BID PRN 07/09/16 07/09/16 History Doxazosin [Cardura] 1 mg PO DAILY 07/09/16 07/09/16 History Hydrocodone/Acetaminophen 0.5 each PO TID 07/09/16 07/09/16 History [Hydrocodon-Acetaminoph 7.5-325] Allergies/Adverse Reactions: Allergies Allergy/AdvReac Type Severity Reaction Status Date / Time Neuromuscular Blockers, Allergy Intermediate SHORTNESS Verified 07/08/15 14:57 Steroidal OF BREATH regadenoson Allergy Mild Cough Verified 07/08/15 14:57 Sulfa (Sulfonamide Allergy Mild RASH Verified 07/08/15 14:57 Antibiotics) enalaprilat [From Vasotec] AdvReac Mild Cough Verified 07/08/15 14:57 Penicillins AdvReac Mild ITCHING Verified 07/08/15 14:57 - Genitourinary Genitourinary: Present: as per HPI, abnormal vaginal bleeding, dysuria, flank pain (Right), hematuria, vaginal discharge Exam - Constitutional Vitals: Period Temp Pulse Resp BP Sys/Sky Pulse Ox Last 24 Hr 98 F-99.9 F 64-82 16-20 145-160/56-78 93-96 - GI/Abdominal GI/Abdominal exam: Present: soft, other (Hernial dialysis catheter right lower quadrant). Absent: ascites, distended, firm, guarding, hernia, tenderness, rebound - Genitourinary Genitourinary: external genitalia normal Results - Labs CBC & BMP: 07/11/16 07:25 07/11/16 07:25 Lab Results: I have reviewed the past 24 hour labs - Diagnostic Findings Procedure: CT Abdomen and Pelvis: image reviewed by me (Soft tissue mass right proximal ureter and renal pelvis)
--- NOTE | 2016-07-11 19:14 | Internal Med Progress Note ---
Assessment and Plan (1) Hematuria Status: Acute Current Visit: Yes (2) Debility Status: Chronic Current Visit: No (3) ESRD on peritoneal dialysis Status: Chronic Current Visit: Yes (4) Hypertension Status: Chronic Current Visit: No Qualifiers: Hypertension type: essential hypertension Qualified Code(s): I10 - Essential (primary) hypertension (5) Mass of right kidney Problem details: possible associated bladder mass Status: Acute Current Visit: Yes Internal Medicine - PN: Subj Interval history: Ms. Fam is a 80 year old female with history of HTN, atherosclerotic disease, ESRD on peritoneal dialysis per Dr. Lara, anemia of chronic disease, OA, generalized weakness, history of falls, hypothyroid status post thyroid resection, history thyroid cancer, radiation therapy, who presented to ER with acute hematuria. She has had associated flank and back pain which resolved as of earlier today. Thought to be kidney stone. Dr. Morgan Landeros has been consulted. She has been receiving fluids. Sunday, she reports feeling better today. Imaging does not reveal kidney stones but rather possible bladder wall mass. Dr. Morgan Landeros to pursue cystoscopy, hopefully within a couple days. She may have to have this procedure outpatient because of scheduling conflicts. The severe flank pain could have been result of blood collection causing pressure. She reports after episode of hematuria, the pain resolved. Exam (Progress Note) - Constitutional Vitals: Period Temp Pulse Resp BP Sys/Sky Pulse Ox Last 24 Hr 98.1 F-99.9 F 72-82 16-20 149-160/60-78 90-96 Exam: General appearance: no acute distress - Respiratory Respiratory exam: Present: clear to auscultation bilaterally - Cardiovascular Cardiovascular exam: Present: regular rate and rhythm - GI/Abdominal GI/Abdominal exam: Present: normal bowel sounds, soft. Absent: tenderness - Extremities Exam Extremities exam: Absent: edema - Neurological Exam Neurological exam: Present: alert, oriented - Psychiatric Psychiatric exam: Present: normal affect, normal mood - Skin Skin exam: Present: warm, dry Results - Labs CBC & BMP: 07/12/16 04:47 07/12/16 04:47
[2016-07-11] MEDS ORDERED: GABAPENTIN 100 MG CAPSULE PO SCH (21:00)
[2016-07-11] MEDS ORDERED: ALPRAZolam 0.25 MG TABLET PO SCH (21:00)
--- NOTE | 2016-07-11 21:18 | EKG Report ---
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
--- NOTE | 2016-07-11 22:12 | Cardiology Consult Note ---
Jorge Schroeder Vanessa, RN, am scribing for, and in the presence of, Mary Loredo MD 22:09. Assessment and Plan - Time spent with patient Time spent with patient: Greater than 30 minutes (due to assessment, planning, documentation, and medication review) (1) Preoperative cardiovascular examination Status: Acute Assessment and plan: SEE PLAN OF CARE LISTED BELOW. Current Visit: Yes (2) Mass of right kidney Status: Acute Assessment and plan: SEE PLAN OF CARE LISTED BELOW. Current Visit: Yes (3) Diastolic CHF, chronic Status: Chronic Assessment and plan: SEE PLAN OF CARE LISTED BELOW. Current Visit: Yes (4) Hematuria Status: Acute Assessment and plan: SEE PLAN OF CARE LISTED BELOW. Current Visit: Yes (5) Leukocytosis Status: Acute Assessment and plan: SEE PLAN OF CARE LISTED BELOW. Current Visit: Yes (6) ESRD on peritoneal dialysis Status: Chronic Assessment and plan: SEE PLAN OF CARE LISTED BELOW. Current Visit: Yes (7) Hypertension Status: Chronic Assessment and plan: SEE PLAN OF CARE LISTED BELOW. Current Visit: No Qualifiers: Hypertension type: essential hypertension Qualified Code(s): I10 - Essential (primary) hypertension (8) PAF (paroxysmal atrial fibrillation) Status: Chronic Assessment and plan: SEE PLAN OF CARE LISTED BELOW. Current Visit: No (9) Peripheral vascular disease Status: Chronic Assessment and plan: SEE PLAN OF CARE LISTED BELOW. Current Visit: No (10) Rheumatoid arthritis Status: Chronic Assessment and plan: SEE PLAN OF CARE LISTED BELOW. Current Visit: No Qualifiers: Rheumatoid arthritis location: knee Laterality: bilateral (11) Hyperlipidemia Status: Chronic Assessment and plan: SEE PLAN OF CARE LISTED BELOW. Current Visit: Yes (12) Hypothyroidism (acquired) Status: Chronic Assessment and plan: SEE PLAN OF CARE LISTED BELOW. Current Visit: Yes (13) Bilateral carotid artery disease Status: Chronic Assessment and plan: SEE PLAN OF CARE LISTED BELOW. Current Visit: Yes History of Present Illness - Data of Consult Patient: known to practice within the last 3 years Consult date: 07/11/16 Requesting Physician: Morgan Landeros Primary care physician: Shaggy Dsouza - Consult Narrative Reason for consult: preoperative cardiovascular exam History of present illness: PRIMARY MACHINIST BENCH: DR. FEMI KING PCP: DR. SHAGGY DSOUZA CARDIOLOGY CONSULT NOTE: PREOPERATIVE CARDIOVASCULAR EXAM Ms. Dsouza is a 81 year old white female who was previously followed by Dr. Alireza Reynolds for several years and has recently established care with Dr. King as her primary sharepoint manager. She has risk factors significant for: hypertension , hyperlipidemia, former smoking, and family history of premature coronary artery disease. Patient does have a history of hypertensive heart disease but no obstructive coronary artery disease appreciated. Past medical history includes paroxysmal atrial fibrillation, chronic diastolic congestive heart failure, end-stage renal disease with peritoneal dialysis, chronic anemia, peripheral vascular disease, carotid artery disease, and hypothyroidism. She has arthritis and chronic pain routinely followed by Dr. Steward. Past surgical history includes bilateral femoral endarterectomies and bilateral iliac stenting in October 2014, cholecystectomy, hysterectomy, thyroid resection due to thyroid cancer. Patient presented to [facility] on 07/09 with complaints of flank pain, back pain, intermittent dysurina, and gross hematuria with onset 4 days prior. She still continues to make some urine which has been clear by history, but recently when she voids about once a day, she had noticed a lot of bloody clots. She was admitted to [facility] for per internal medicine. CT scan since admission reveals a mass of the right proximal ureter and renal pelvis with mild hydronephrosis. Urology has been consulted for further evaluation, and she will need ureteroscopy. Nephrology is following patient during admission. Cardiology has been consulted for preoperative cardiovascular exam. Patient was last evaluated by Dr. King in clinic on May 05, and May 16, 2016. It is noted she had had a chronic recurrent bleeding issue from her throat and ENT is following her. Patient doing well on her present medical regimen for PAF and had no breakthrough rhythm disturbance. Denied palpitation , and EKG was noted to be sinus rhythm. Carotid Doppler ultrasound for bilateral carotid bruits revealed bilateral 60-79% internal carotid artery stenosis. 2D echocardiogram on May 05 revealed LV ejection fraction 60% with some concentric LVH. There was some calcification of valves but normal function and motion. There was moderate to severe mitral regurgitation, mild TR , and moderate pulmonary hypertension with a PA pressure 57 mmHg. She has a documented chronic right bundle branch block. Her most recent nuclear SPECT scan was in June 2014 during evaluation for surgical clearance. SPECT scan revealed normal wall motion, no ischemic changes, breast attenuation present. Review of old hospital record notes during hospital admission in 2013, patient did experience angina but after workup was found to be secondary to atrial fibrillation with rapid ventricular response. Upon exam, patient is awake and alert in no acute distress. Patient's is present at bedside. Patient has not had any recent or current chest pain. She has chronic stable dyspnea on exertion but overall is unchanged. Her functional status is limited by some other orthopedic and neurologic limitations that require her to ambulate slowly with a walker. She would not be able to climb 2 flights of stairs. Denies recent or current orthopnea, PND, palpitation, presyncope, or other cardiac complaint. Systolic BP ranging 145- 160 systolic. Pulse is 70s and regular by exam. Patient has a history of chronic electrolyte abnormalities, but currently she appears to be optimized with potassium of 4.0, magnesium 2.5. Fasting lipid panel unremarkable. Her white blood cell count is 14,900 and she is noted to be slightly febrile overnight with temperature max of 99.9F. ASSESSMENT/PLAN: 1. PREOPERATIVE CARDIOVASCULAR EXAM -the patient is at least at intermediate risk of perioperative cardiovascular complications given her comorbid conditions. She has a very limited functional status which precludes us from being able to adequately assess her cardiac risk with activities and symptoms alone. She has underlying vascular disease which puts her at higher risk of having concomitant coronary disease. Overall her cardiac risks would not be prohibitive proceeding with cystoscopy. However, if any significant surgery is required, we will need to consider proceeding with stress testing for further risk stratification unless the surgery was considered to be urgent or emergent in nature. I discussed this at length with the patient, she has felt unwell with stress testing when it was done 2 years ago and would prefer to avoid this if not "necessary". We will wait to see what her cystoscopy reveals. 2. HYPERTENSION - Blood pressure is suboptimally controlled at this time. 3. HYPERLIPIDEMIA - FLP reviewed, unremarkable. 4. CAROTID ARTERY DISEASE - Recent carotid doppler US with 60-79% ICA stenosis. 5. PAROXYSMAL ATRIAL FIBRILLATION - Sinus rhythm per EKG and exam. Well controlled on current medical regimen. 6. HISTORY OF CHRONIC DIASTOLIC CONGESTIVE HEART FAILURE - Appears to be well compensated without overt s/s heart failure at this time. Recent EF 60% with severe MR per echo 7. HYPOTHYROIDISM - Continue thyroid supplement 8. ESRD WITH PERITONEAL DIALYSIS - Routine peritoneal dialysis exchanges; Nephrology is following also. 9. CHRONIC ANEMIA - H/H is stable. She has required blood transfusion in the past. 10. Ureteral mass. CC: Shaggy Dsouza, DO - Home Medications and Allergies Home Medications: Home Medications Medication Instructions Recorded Confirmed Type Magnesium Chloride [Slow Mag] 64 mg PO DAILY 07/15/14 07/09/16 History Metoprolol Succinate 25 mg PO DAILY 07/15/14 07/09/16 History Pantoprazole Tab [Protonix Tab] 40 mg PO BID 07/15/14 07/09/16 History Pentoxifylline [TRENtal] 400 mg PO BID 07/15/14 07/09/16 History Aspirin [Ecotrin] 81 mg PO DAILY 12/28/14 07/09/16 History Calcium Acetate [Phoslo] 1 tablet PO TID 05/25/15 07/09/16 History Pravastatin Sodium 20 mg PO DAILY 09/21/15 07/10/16 History Gabapentin 100 mg PO BEDTIME #30 capsule 09/24/15 07/09/16 Rx Diphenoxylate/Atrop 2.5-0.025 1 each PO QID PRN 10/11/15 07/09/16 History [Lomotil Tab] Isosorbide Mononitrate [Isosorbide 60 mg PO DAILY 10/11/15 07/09/16 History Mononitrate ER] Levothyroxine Tab [Synthroid Tab] 137 mcg PO 0700 10/11/15 07/09/16 History ALPRAZolam [Xanax] 0.5 mg PO BEDTIME #30 tablet 10/14/15 07/09/16 Rx Acetaminophen Tab [Tylenol Tab] 650 mg PO Q6H PRN #0 tablet 10/14/15 07/09/16 Rx Amlodipine Besylate [Amlodipine 10 mg PO DAILY 01/11/16 07/09/16 History Besylate] Calcitriol [Calcitriol] 0.5 mcg PO DAILY 01/11/16 07/09/16 History Docusate Sodium Cap [Colace Cap] 100 mg PO BID PRN 07/09/16 07/09/16 History Doxazosin [Cardura] 1 mg PO DAILY 07/09/16 07/09/16 History Hydrocodone/Acetaminophen 0.5 each PO TID 07/09/16 07/09/16 History [Hydrocodon-Acetaminoph 7.5-325] Allergies/Adverse Reactions: Allergies Allergy/AdvReac Type Severity Reaction Status Date / Time Neuromuscular Blockers, Allergy Intermediate SHORTNESS Verified 07/08/15 14:57 Steroidal OF BREATH regadenoson Allergy Mild Cough Verified 07/08/15 14:57 Sulfa (Sulfonamide Allergy Mild RASH Verified 07/08/15 14:57 Antibiotics) enalaprilat [From Vasotec] AdvReac Mild Cough Verified 07/08/15 14:57 Penicillins AdvReac Mild ITCHING Verified 07/08/15 14:57 - Constitutional Constitutional: Present: as per HPI - EENT Eyes: Present: as per HPI Ears: Present: as per HPI Nose, mouth and throat: Present: as per HPI - Cardiovascular Cardiovascular: Present: as per HPI - Respiratory Respiratory: Present: as per HPI - Gastrointestinal Gastrointestinal: Present: as per HPI - Genitourinary Genitourinary: Present: as per HPI - Musculoskeletal Musculoskeletal: Present: as per HPI - Neurological Neurological: Present: as per HPI - Psychiatric Psychiatric: Present: as per HPI - Endocrine Endocrine: Present: as per HPI - Hematologic/Lymphatic Hematologic/Lymphatic: Present: as per HPI Medical,Surgical,& Family Hx - Medical History Cardio: History of: Cardiac Dysrhythmia (PAROXYSMAL ATRIAL FIB), CHF, Hypertension, PVD, Valvular Heart Disease (mitral valve regurgitation), Cardiovascular Problems (PVD) No history of: Aneurysm, Cerebrovascular Disease, Congenital Heart Disease, CAD, DC, Pacemaker Psychological: History of: Anxiety Disorders, Behavior Problems, Bipolar Disorder, Depression No history of: ADHD, Previous Suicide Attempt, Psychiatric/Substance Abuse Tx , Schizophrenia, Violent Behavior, Psychiatric Problems Neurology: History of: Cerebral Palsy, Peripheral Neuropathy No history of: Cerebrovascular Accident, Migraine, Parkinson's Disease, Seizures, TIA HEENT: History of: Ear Problem (GLASSES CATARACTS), Dental Problems (upper and lower dentures) No history of: Eye Problem, Glaucoma, Oral Cancer, HEENT Problems Endocrine: History of: Dyslipidemia, Thyroid Disorder (s/p thyroid resection due to thyroid CA) No history of: Diabetes Mellitus (IDDM), Diabetes Mellitus (NIDDM), Endocrine Cancer, Endocrine Problems Rheumatology: History of;: Gout, Rheumatoid Arthritis No history of;: Myasthenia Gravis, Rheumatological Problems Respiratory: History of: Asthma, Pulmonary Hypertension No history of: Bronchitis, COPD, Intubation, Pneumonia Renal: History of: Dialysis (PERITONEAL), Renal Failure Genitourinary: No history of: Recurring Urinary Tract Infections, Genitourinary Cancer, Problems Gastrointestinal: History of: GERD, GI Problems (nausea, vomiting, diarrhea started a week ago) No history of: Bowel Obstruction, Clostridium Difficile, Crohn's Disease, Diverticulitis/ Diverticulosis, Esophageal Varices, Gastrointestinal Bleed, Hemorrhoids, Hematochezia, Hepatitis, Liver Problems, Pancreatitis, Polyps, Ulcerative Colitis, Gastrointestinal Cancer Musculoskeletal: History of: Back/Neck Problems (chronic back pain) No history of: Amputation, Degenerative Disk Disease, Herniated Disk, Osteoporosis, Musculoskeletal Cancer, Musculoskeletal Problems Hematology: History of: Anemia (CHRONIC), Bleeding Problems No history of: Blood Transfusion Reaction Reproductive: History of: Ovarian Cysts, Complication Other: History of: Cancer, Skin Problems (CANCER) No history of: Anesthesia Reactions, Miscellaneous Medical Problems - Surgical History Cardiac Surgeries: Sugical HX of: Cardiac Catheterization Patient Denies: Cardiac Surgery, Carotid Endarterectomy, Internal Defibrillator, Vascular Access Devices Thoracic Surgeries: Patient denies;: Kidney (Renal Surgery), Lithotripsy, Nephrectomy, Organ Transplant, Lobectomy Neurologic Surgeries: Patient denies: Brain Aneurysm, Cerebral Hemorrhage, Neurologic Surgery HEENT Surgeries: Surgical HX of: Eye Surgery (REMOVAL CATARACTS), Thyroid Surgery, Tonsilectomy & Adenoidectomy Patient denies: Carotid Endarterectomy Abdominal Surgeries: Surgical HX of: Cholecystectomy Patient denies: Appendectomy, EGD Reproductive Surgeries: Surgical HX of;: Section (X2), Hysterectomy Patient denies;: Breast Surgery, Tubal Ligation Orthopedic Surgeries: Patient denies;: Implanted Devices, Orthopedic Surgery, Spinal Surgery, Total Hip Replacement, Total Knee Replacement - Family History Family History: Reports;: Family Cancer (sisters and a brother with lung cancer) , Family Diabetes (DAD), Family Hypertension (PARENTS), Family Stroke Denies;: Family Anesthesia Reaction, Family Heart Disease, Family Psychiatric Problems - Social History Smoking Status: Former smoker Frequency of Alcohol Use: None Type of Drug Use: None Marital Status: Lives With:: Spouse Functional capacity: independent ambulation Physical Examination Vital Signs Temp Pulse Resp BP Pulse Ox 98.3 F 70 16 153/61 97 07/09/16 19:20 07/09/16 19:20 07/09/16 19:20 07/09/16 19:20 07/09/16 19:20 Other: General appearance: normal weight, no acute distress - Head Head exam: Present: normal inspection, normocephalic, atraumatic. Absent: hematoma, laceration - Eye Eye exam: Present: EOMI. Absent: conjunctival injection, nystagmus, periorbital swelling, scleral icterus, laceration to eyelids Pupils: Present: PERRL. Absent: constricted, dilated, fixed, irregular, unequal - ENT ENT exam: Present: normal exam, normal external ear exam - Neck Neck exam: Present: normal inspection. Absent: lymphadenopathy, meningismus, tenderness, thyromegaly - Respiratory Respiratory exam: Present: Prolonged expiration and scant wheezing bilaterally. Absent: accessory muscle use, chest wall tenderness - Cardiovascular Cardiovascular exam: Present: regular rate and rhythm with a 3/6 holosystolic murmur loudest at the apex, there are also bilateral carotid bruits present. Absent: gallop, JVD, rubs - GI/Abdominal GI/Abdominal exam: Present: normal bowel sounds, soft. Absent: distended, firm , guarding, hernia, mass, tenderness, rebound. - Extremities Exam Extremities exam: Present: Decreased pulses bilaterally. Absent: calf tenderness, edema - Back Exam Back exam: Present: normal inspection. Absent: muscle spasm, vertebral tenderness - Neurological Exam Neurological exam: Present: alert, oriented X3, grossly intact without resting or intention tremor - Psychiatric Psychiatric exam: Present: normal affect, normal mood - Skin Skin exam: Present: normal color, warm, dry, intact. Absent: cyanosis, diaphoretic, rash, urticaria Result/EKG - Labs CBC & BMP: 07/11/16 07:25 07/11/16 07:25 Lab Results: I have reviewed the past 24 hour labs Labs: Laboratory Results - last 24 hr 07/10/16 07/11/16 07/11/16 18:05 07:25 07:25 WBC 14.9 H D RBC 3.26 L D Hgb 9.9 L D 10.7 L Hct 29.2 L 30.8 L MCV 94.5 MCH 33 MCHC 34.7 RDW 15.7 Plt Count 256 D MPV 12.8 H Neut % (Auto) 76.6 H Lymph % (Auto) 14.6 L [place] % (Auto) 6.4 Eos % (Auto) 1.4 Baso % (Auto) 0.5 Neut # (Auto) 11.4 H Lymph # (Auto) 2.2 [place] # (Auto) 1.0 H Eos # (Auto) 0.2 Baso # (Auto) 0.1 Immature Gran % 0.5 Nucleated RBC % 0.0 Immature Gran # 0.08 Nucleated RBCs # 0.00 Sodium 136 Potassium 4.0 Chloride 94 L Carbon Dioxide 30 Anion Gap 16.0 H BUN 40 H Creatinine 8.30 H GFR Calculation 4 BUN/Creatinine Ratio 4.00 L Glucose 132 H Calculated Osmolality 283.0 Calcium 10.0 Phosphorus 5.7 H Magnesium 2.5 H Total Bilirubin 0.40 AST 16 ALT < 6 L Alkaline Phosphatase 68 Total Protein 6.5 Albumin 2.5 L Globulin 4.0 H Albumin/Globulin Ratio 0.6 L Triglycerides 55 Cholesterol 171 LDL Cholesterol 81.0 VLDL Cholesterol 11.0 HDL Cholesterol 76 H Heart Disease Risk Ratio 2.25 Vitamin B12 07/11/16 07:25 WBC RBC Hgb Hct MCV MCH MCHC RDW Plt Count MPV Neut % (Auto) Lymph % (Auto) [place] % (Auto) Eos % (Auto) Baso % (Auto) Neut # (Auto) Lymph # (Auto) [place] # (Auto) Eos # (Auto) Baso # (Auto) Immature Gran % Nucleated RBC % Immature Gran # Nucleated RBCs # Sodium Potassium Chloride Carbon Dioxide Anion Gap BUN Creatinine GFR Calculation BUN/Creatinine Ratio Glucose Calculated Osmolality Calcium Phosphorus Magnesium Total Bilirubin AST ALT Alkaline Phosphatase Total Protein Albumin Globulin Albumin/Globulin Ratio Triglycerides Cholesterol LDL Cholesterol VLDL Cholesterol HDL Cholesterol Heart Disease Risk Ratio Vitamin B12 592 - Diagnostic Findings Procedure: Chest x-ray: image reviewed by me, report reviewed by me - EKG EKG results: interpreted by me, no acute changes EKG shows: sinus rhythm IFacundo Jennifer, MD, personally performed the services described in this documentation, ascribed by Judy Patel RN in my presence, and it is both accurate and complete 212 .
--- NOTE | 2016-07-11 23:18 | Nephrology Progress Note ---
Nephrology - PN: Subj Interval history: No shortness of breath. No further hematuria. Right lower quadrant abdominal pain resolved Exam (PN)-Nephrology - Vital Signs Vital signs: Period Temp Pulse Resp BP Sys/Sky Pulse Ox Last 24 Hr 97.3 F-99.9 F 72-82 16-20 149-160/60-78 90-98 Exam: Gen.: Alert and oriented x3. ENT: Pupils equal round reactive to light. EOMs intact. Mucous membranes moist. Neck: Supple. No JVD or bruit. Cardiovascular: Regular rate and rhythm. No murmur rub or gallop Lungs: Clear Abdomen: Soft. Nontender. Positive bowel sounds. PD fluid clear Extremities: No edema - Lab 07/11/16 07:25 07/11/16 07:25 Most recent lab results Calcium 10.0 MG/DL (8.5-10.1) 07/11/16 07:25 Phosphorus 5.7 MG/DL (2.5-4.9) H 07/11/16 07:25 Magnesium 2.5 MG/DL (1.8-2.4) H 07/11/16 07:25 Assessment and Plan (1) ESRD on peritoneal dialysis Status: Chronic Assessment and plan: 80-year-old woman admitted with: * ESRD. She is on peritoneal dialysis. Volume status normal. No peritonitis * Hematuria. No gross hematuria today. Urology plans cystoscopy. Discussed with Dr. Landeros * Paroxysmal SVT * Peripheral vascular disease * Hypertension. Controlled Current Visit: Yes (2) Hematuria Status: Acute Current Visit: Yes (3) Hypertension Status: Chronic Current Visit: No Qualifiers: Hypertension type: essential hypertension Qualified Code(s): I10 - Essential (primary) hypertension (4) PAF (paroxysmal atrial fibrillation) Status: Chronic Current Visit: No (5) Peripheral vascular disease Status: Chronic Current Visit: No (6) Rheumatoid arthritis Status: Chronic Current Visit: No Qualifiers: Rheumatoid arthritis location: knee Laterality: bilateral
[2016-07-12] MEDS: SODIUM CHLORIDE 0.9% 1,000 ML IV SCH (01:18)
[2016-07-12 06:28] LABS: Basophils # 0.1 10*3/uL (0.0-0.2); Basophils % 0.5 % (0.0-0.8); Eosinophils # 0.6 10*3/uL (0.0-0.87); Eosinophils % 6.3 % (0.00-10.9); Hematocrit 23.7 VOL% (35.7-47.0); Hemoglobin 8.4 GM/DL (12.0-16.0); Immature Granulocytes % 0.6 %; Immature Granulocytes Absolute 0.06 #; Lymphocytes # 3.1 10*3/uL (1.4-4.0); Lymphocytes % 30.9 % (21.3-54.2); Mean Corpuscular HGB Conc 35.4 GM/DL (32-36); Mean Corpuscular Hemoglobin 33 PG (27-34); Mean Corpuscular Volume 92.2 FL (87-102); Mean Platelet Volume 13.1 FL (9.6-12.0); Neutrophils # 5.2 10*3/uL (1.4-7.4); Neutrophils % 51.7 % (38.7-73.9); Platelet Count 203 T/CUMM (130-400); Red Blood Count 2.57 MC/CUMM (3.8-5.5); Red Cell Distribution Width 15.7 % (9.3-17.3); White Blood Count 10.1 T/CUMM (4-12)
[2016-07-12 06:56] LABS: Calcium 9.3 MG/DL (8.5-10.1); Osmolality,Calculated 278.1 MOS/KG (273-304); Potassium 3.6 MMOL/L (3.5-5.1)
[2016-07-12] MEDS ORDERED: LEVOTHYROXINE 137 MCG TABLET PO SCH (07:00)
[2016-07-12] MEDS: ALBUTEROL/IPRATROPIUM 3 ML NEB RESP TX SCH ×3 (07:21→14:04)
[2016-07-12] MEDS: DOCUSATE SODIUM 100 MG CAPSULE PO SCH (08:42)
[2016-07-12] MEDS: ISOSORBIDE MONONITRATE 60 MG TABLET PO SCH (08:42)
[2016-07-12] MEDS: METOPROLOL SUCCINATE XL 25 MG TABLET PO SCH (08:42)
[2016-07-12] MEDS: CALCIUM ACETATE 667 MG CAPSULE PO SCH ×3 (08:42→18:22)
[2016-07-12] MEDS: CALCITRIOL 0.5 MCG CAPSULE PO SCH (08:42)
[2016-07-12] MEDS: PANTOPRAZOLE 40 MG TABLET PO SCH (08:42)
[2016-07-12] MEDS: DOXAZOSIN 1 MG TABLET PO SCH (08:42)
[2016-07-12] MEDS: amLODIPine 10 MG TABLET PO SCH (08:42)
[2016-07-12 16:59] VITALS: BP 133/58
--- NOTE | 2016-07-12 17:22 | Discharge Summary ---
Hospital Course - Hospital Course Hospital Course: Ms. Fam is a 80 year old female with history of HTN, atherosclerotic disease, ESRD on peritoneal dialysis per Dr. Lara, anemia of chronic disease, OA, generalized weakness, history of falls, hypothyroid status post thyroid resection, history thyroid cancer, radiation therapy, who presented to ER with acute hematuria. She has had associated flank and back pain which resolved as of earlier today. Thought to be kidney stone. Dr. Morgan Landeros has been consulted. She has been receiving fluids. Imaging does not reveal kidney stones but rather possible bladder wall mass/ thickening and right kidney nephrosis. The severe flank pain could have been result of blood collection causing pressure. She reports after episode of hematuria, the pain resolved. She will be discharged to home and follow up with Dr. Abhi Landeros in clinic for cystoscopy. Will set her up for outpatient cardiac stress testing as well in anticipation of further surgical procedure. Diagnosis - Discharge Diagnosis (1) Hematuria Status: Resolved (2) ESRD on peritoneal dialysis Status: Chronic (3) Hypertension Status: Chronic (4) Mass of right kidney Status: Acute Specialty Discharge - Follow Up or Referrals Follow up with: Morgan Landeros MD [Physician] - 07/19/16 2:45 pm Discharge Plan - Discharge Data Disposition: Disch To Home/Self Care Condition at Discharge: Stable Discharge Diet: low fat, low cholesterol, other (renal diet) - Discharge Medications New Albuterol/Ipratropium Neb [Duoneb] 3 ml RESP TX RT Q6H #120 Docusate Sodium Cap [Colace Cap] 100 mg PO BID capsule Acetaminophen Tab [Tylenol Tab] 650 mg PO Q6H PRN #0 tablet PRN Reason: Fever > 100.4 Or Headache Continue Metoprolol Succinate 25 mg PO DAILY Pentoxifylline [TRENtal] 400 mg PO BID Magnesium Chloride [Slow Mag] 64 mg PO DAILY Pantoprazole Tab [Protonix Tab] 40 mg PO BID Aspirin [Ecotrin] 81 mg PO DAILY Calcium Acetate [Phoslo] 1 tablet PO TID Pravastatin Sodium 20 mg PO DAILY Diphenoxylate/Atrop 2.5-0.025 [Lomotil Tab] 1 each PO QID PRN PRN Reason: Diarrhea Levothyroxine Tab [Synthroid Tab] 137 mcg PO 0700 Isosorbide Mononitrate [Isosorbide Mononitrate ER] 60 mg PO DAILY ALPRAZolam [Xanax] 0.5 mg PO BEDTIME #30 tablet Acetaminophen Tab [Tylenol Tab] 650 mg PO Q6H PRN #0 tablet PRN Reason: Fever > 100.4 Or Headache Calcitriol 0.5 mcg PO DAILY Amlodipine Besylate 10 mg PO DAILY Hydrocodone/Acetaminophen [Hydrocodon-Acetaminoph 7.5-325] 0.5 each PO TID Gabapentin 100 mg PO BEDTIME #30 capsule Doxazosin [Cardura] 1 mg PO DAILY Docusate Sodium Cap [Colace Cap] 100 mg PO BID PRN PRN Reason: Constipation - Follow Up or Referral Follow Up: Morgan Landeros MD [Physician] - 07/19/16 2:45 pm - Forms/Instructions Instructions: Heart Failure (DC), Cardiac Stress Test (DC) Additional Discharge Instructions: Follow up with Dr. Morgan Landeros in clinic per appointment set and follow up with outpatient cardiac stress testing within the next 2-3 weeks. Follow up with Dr. Harry Fam in clinic after cystoscopy workup has been completed by Dr. Rincon. Exam - Constitutional Vitals: Period Temp Pulse Resp BP Sys/Sky Pulse Ox Last 24 Hr 97.3 F-98.9 F 65-83 16-20 114-160/50-70 90-99 Exam: General appearance: no acute distress - Respiratory Respiratory exam: Present: clear to auscultation bilaterally - Cardiovascular Cardiovascular exam: Present: regular rate and rhythm - GI/Abdominal GI/Abdominal exam: Present: normal bowel sounds, soft. Absent: tenderness - Extremities Exam Extremities exam: Absent: edema - Neurological Exam Neurological exam: Present: alert, oriented - Psychiatric Psychiatric exam: Present: normal affect, normal mood - Skin Skin exam: Present: warm, dry Discharge Results Labs on day of discharge: Labs from last 24 hours 07/12/16 07/12/16 04:47 04:47 WBC 10.1 D RBC 2.57 L D Hgb 8.4 L D Hct 23.7 L MCV 92.2 MCH 33 MCHC 35.4 RDW 15.7 Plt Count 203 D MPV 13.1 H Neut % (Auto) 51.7 Lymph % (Auto) 30.9 Morrow % (Auto) 10.0 Eos % (Auto) 6.3 Baso % (Auto) 0.5 Neut # (Auto) 5.2 Lymph # (Auto) 3.1 Morrow # (Auto) 1.0 H Eos # (Auto) 0.6 Baso # (Auto) 0.1 Immature Gran % 0.6 Nucleated RBC % 0.0 Immature Gran # 0.06 Nucleated RBCs # 0.00 Sodium 135 L Potassium 3.6 Chloride 94 L Carbon Dioxide 30 Anion Gap 14.6 BUN 40 H Creatinine 7.90 H GFR Calculation 4 BUN/Creatinine Ratio 5.00 L Glucose 85 Calculated Osmolality 278.1 Calcium 9.3 - Imaging and Cardiology Procedure: CT Abdomen and Pelvis: image reviewed by me, report reviewed by me DS: Provider Date of admission: 07/09/16 22:48 Primary care physician: . No PCP Attending physician on admission: Heather Fam DO Consults: 07/09/16 22:52 Consult to Physician [CONS] Routine Comment: Consulting Provider: Reymnudo Lara Person Notified: Iveth Date Notified: 07/10/16 Time Notified: 10:12 07/10/16 09:19 Consult to Physical Therapy [CONS] Routine Reason for Physical Therapy: Evaluate and Treat Start Therapy: Today Consult Comment: needs walker 07/10/16 18:49 Consult to Dietitian [CONS] Routine Reason for Dietitian: Diet Recommendations Consult Comment: protein requirements in a dialysis patient 07/11/16 10:05 Consult to Case Mgmt/Social Srvs [CONS] Routine Reason for Case Mgmt/Social Srvs: Equipment Consult Comment: rollator 07/11/16 11:16 Consult to Physician [CONS] Routine Comment: needs endoscopic surgery,hematuria Consulting Provider: Georges Galaviz Consult to Specialist Group: Cardiology When should Consulting Provider be notified: Now Person Notified: jose Date Notified: 07/11/16 Time Notified: 11:31 07/11/16 11:47 Consult to Anesthesiology [CONS] Routine Consulting Provider: Reason for Anesthesiology: Pre-op Clearance Discharging clinician: Heather Fam DO Expected date of discharge: 07/12/16
--- NOTE | 2016-07-12 21:43 | Nephrology Progress Note ---
Nephrology - PN: Subj Interval history: No shortness of breath. No abdominal pain. PD exchanges going well Exam (PN)-Nephrology - Vital Signs Vital signs: Period Temp Pulse Resp BP Sys/Sky Pulse Ox Last 24 Hr 97.3 F-98.9 F 65-83 16-20 114-156/50-70 90-99 Exam: ENT: Normal Cardiovascular: Regular rate and rhythm. No murmur rub or gallop Lungs: Clear Abdomen: Nontender Extremities: No edema - Lab 07/12/16 04:47 07/12/16 04:47 Most recent lab results Calcium 9.3 MG/DL (8.5-10.1) 07/12/16 04:47 Phosphorus 5.7 MG/DL (2.5-4.9) H 07/11/16 07:25 Magnesium 2.5 MG/DL (1.8-2.4) H 07/11/16 07:25 Assessment and Plan (1) ESRD on peritoneal dialysis Status: Chronic Assessment and plan: 80-year-old woman admitted with: * ESRD. Continue peritoneal dialysis exchanges unchanged * Hematuria. Cystoscopy will be done as outpatient * Paroxysmal SVT * Peripheral vascular disease * Hypertension. (2) Hematuria Status: Resolved (3) Hypertension Status: Chronic Qualifiers: Hypertension type: essential hypertension Qualified Code(s): I10 - Essential (primary) hypertension (4) PAF (paroxysmal atrial fibrillation) Status: Chronic (5) Peripheral vascular disease Status: Chronic (6) Rheumatoid arthritis Status: Chronic Qualifiers: Rheumatoid arthritis location: knee Laterality: bilateral Specialty Discharge - Follow Up or Referrals Follow up with: Morgan Landeros MD [Physician] - 07/19/16 2:45 pm
== END 2016-07-12 18:37 | disposition home or self-care (01) | DRG 699 ==
LOC: N.ED 19:14 → N.EDINP 22:48 → N.5E 23:21
PROVIDERS: ADMIT Internal Medicine; ATTEND Internal Medicine

== ENCOUNTER 2016-08-29 14:59 | Inpatient (IN) ==
[2016-08-29 16:01] LABS: Basophils # 0.1 10*3/uL (0.0-0.2); Basophils % 0.4 % (0.0-0.8); Eosinophils # 0.1 10*3/uL (0.0-0.87); Eosinophils % 0.7 % (0.00-10.9); Hematocrit 28.8 VOL% (35.7-47.0); Immature Granulocytes % 1.4 %; Immature Granulocytes Absolute 0.22 #; Lymphocytes # 3.2 10*3/uL (1.4-4.0); Lymphocytes % 20.2 % (21.3-54.2); Mean Corpuscular HGB Conc 34.7 GM/DL (32-36); Mean Corpuscular Hemoglobin 33 PG (27-34); Mean Corpuscular Volume 95.4 FL (87-102); Mean Platelet Volume 11.7 FL (9.6-12.0); Monocytes # 1.3 10*3/uL (0.11-0.8); Neutrophils # 11.1 10*3/uL (1.4-7.4); Neutrophils % 69.3 % (38.7-73.9); Platelet Count 264 T/CUMM (130-400); Red Blood Count 3.02 MC/CUMM (3.8-5.5); Red Cell Distribution Width 14.4 % (9.3-17.3); White Blood Count 16.1 T/CUMM (4-12)
[2016-08-29 16:20] LABS: Alanine Aminotransferase 23 U/L (13-56); Albumin 1.8 G/DL (3.4-5.0); Alkaline Phosphatase 77 U/L (45-117); Aspartate Amino Transferase 116 U/L (0-37); Bilirubin,Total < 0.39 MG/DL (0.2-1.0); Blood Urea Nitrogen 33 MG/DL (7-18); Calcium 9.6 MG/DL (8.5-10.1); Glucose 92 MG/DL (74-106); Potassium 3.3 MMOL/L (3.5-5.1); Sodium 136 MMOL/L (136-145); Total Protein 5.5 G/DL (6.4-8.3)
--- NOTE | 2016-08-29 17:16 | Emergency Department Note ---
Yulia Schroeder Rolonda, am scribing for, and in the presence of, Kang Sifuentes MD 15:37. Bear Schroeder Phillip K, MD, personally performed the services described in this documentation, ascribed by Fatuma Bender in my presence, and it is both accurate and complete 716 . Arrival - Arrival Chief Complaint: Weakness ED Nursing Triage Note: c/o weakness for 3 days. pt went to a dialysis center and was given some iv med--unknown what Mode of Arrival: Stretcher Limitations: No Limitations Source: Patient, Old Records Reviewed, RN Notes Reviewed Time Seen by Provider: 08/29/16 15:13 - History of Present Illness HPI Narrative: Pt is a 72 y/o female who presents to the ED via EMS with c/o generalized weakness with an onset of x3 days ago. Pt has PMHx of Peritoneal Dialysis every night at home. Pt states that she is "just weak all over" and has no appetite. Pt confirms diarrhea but denies any pain during exam, N/V, weight change, abdominal pain, and fever. At time of triage pt's temperature was 99.1. She is f/u by Dr. Hampton, Dr. Fam, and Dr. Kapadia. No other complaint/ pain in ED. Onset (ago): day(s) Consistency: constant Severity: moderate Severity scale (1-10): 4 Allergies/Adverse Reactions: Allergies Allergy/AdvReac Type Severity Reaction Status Date / Time Neuromuscular Blockers, Allergy Intermediate SHORTNESS Verified 08/09/16 15:14 Steroidal OF BREATH regadenoson Allergy Mild Cough Verified 08/09/16 15:14 Sulfa (Sulfonamide Allergy Mild RASH Verified 08/09/16 15:14 Antibiotics) enalaprilat [From Vasotec] AdvReac Mild SHORTNESS Verified 08/09/16 15:14 OF BREATH Penicillins AdvReac Mild ITCHING Verified 08/09/16 15:14 Home Medications: Home Medications Medication Instructions Recorded Confirmed Type Pantoprazole Tab [Protonix Tab] 40 mg PO BID 07/15/14 08/29/16 History Pentoxifylline [TRENtal] 400 mg PO BID 07/15/14 08/29/16 History Aspirin [Ecotrin] 81 mg PO DAILY 12/28/14 08/29/16 History Calcium Acetate [Phoslo] 2 tablet PO TID W/MEALS 05/25/15 08/29/16 History Calcitriol 0.5 mcg PO DAILY 01/11/16 08/29/16 History Hydrocodone/Acetaminophen 1 each PO TID PRN 07/09/16 08/29/16 History [Hydrocodon-Acetaminoph 7.5-325] ALPRAZolam [Xanax] 0.125 mg PO BID PRN 08/17/16 08/29/16 History Docusate Sodium Cap [Colace Cap] 100 mg PO DAILY PRN 08/17/16 08/29/16 History Levothyroxine Tab [Synthroid Tab] 137 mcg PO DAILY 08/17/16 08/29/16 History Ondansetron Tab [Zofran Tab] 4 mg PO DAILY PRN 08/17/16 08/29/16 History Pravastatin [Pravachol] 40 mg PO BEDTIME 08/29/16 08/29/16 History Review of System - Review of System 12 point system: reviewed and no additional remarkable complaints except as stated - Review of System Constitutional: Present: weakness. Absent: fever Eyes: Absent: discharge, redness Head/Ears/Nose/Throat: Absent: earache, epistaxis Respiratory: Absent: cough, respiratory distress, wheezing Cardiovascular: Absent: chest pain, palpitations, dyspnea on exertion Gastrointestinal: Present: diarrhea. Absent: abdominal pain, nausea, vomiting Genitourinary female: Absent: dysuria, frequency Musculoskeletal: Absent: arm pain, back pain, lower back pain, leg pain, neck pain Skin: Absent: rash Neurological: Absent: headache Psychiatric: Absent: anxiety Medical,Surgical,& Family Hx - Medical History Cardio: History of: Cardiac Dysrhythmia (PAROXYSMAL ATRIAL FIB), CHF, Hypertension, PVD, Valvular Heart Disease (mitral valve regurgitation), Cardiovascular Problems (PVD DR THAPA IN PAST CURRENT DR KING LAST VISIT 2016.) No history of: Aneurysm, Cerebrovascular Disease, Congenital Heart Disease, CAD, [place], Pacemaker Psychological: History of: Anxiety Disorders, Behavior Problems, Bipolar Disorder, Depression No history of: ADHD, Previous Suicide Attempt, Psychiatric/Substance Abuse Tx , Schizophrenia, Violent Behavior, Psychiatric Problems Neurology: History of: Cerebral Palsy, Peripheral Neuropathy No history of: Brain Aneurysm, Cerebral Hemorrhage, Cerebrovascular Accident , Dementia, Migraine, Multiple Sclerosis, Parkinson's Disease, Seizures, TIA, Vertigo, Neurologocal Cancer HEENT: History of: Ear Problem (GLASSES CATARACTS), Dental Problems (upper and lower dentures) No history of: Eye Problem, Glaucoma, Oral Cancer, HEENT Problems Endocrine: History of: Dyslipidemia, Thyroid Disorder (s/p thyroid resection due to thyroid CA) No history of: Adrenal Disease, Diabetes Mellitus (IDDM), Diabetes Mellitus ( NIDDM), Endocrine Cancer, Endocrine Problems Rheumatology: History of;: Gout, Rheumatoid Arthritis No history of;: Fibromyalgia, Myasthenia Gravis, Systemic Lupus Erythematosus , Rheumatological Problems Respiratory: History of: Asthma, Pulmonary Hypertension No history of: Bronchitis, COPD, Intubation, Obstructive Sleep Apnea, Pulmonary Embolism, Pneumonia, Lung Cancer, Respiratory Problems (FLU VAC- YES; PNEU VAC-YES.) Renal: History of: Dialysis (PERITONEAL OVERNIGHT [address] KAPADIA [address] HAMPTON.), Renal Failure No history of: Renal (Kidney) Cancer, Renal Problems Genitourinary: History of: Kidney Stones No history of: Bladder Problem, Recurring Urinary Tract Infections, Genitourinary Cancer, Problems Gastrointestinal: History of: GERD, GI Problems (nausea, vomiting, diarrhea started a week ago) No history of: Bowel Obstruction, Clostridium Difficile, Crohn's Disease, Diverticulitis/ Diverticulosis, Esophageal Varices, Gastrointestinal Bleed, Hemorrhoids, Hematochezia, Hepatitis, Liver Problems, Pancreatitis, Polyps, Ulcerative Colitis, Gastrointestinal Cancer Musculoskeletal: History of: Back/Neck Problems (chronic back pain. DR GUTIERREZ.) No history of: Amputation, Degenerative Disk Disease, Herniated Disk, Osteoporosis, Musculoskeletal Cancer, Musculoskeletal Problems Hematology: History of: Anemia (CHRONIC), Bleeding Problems No history of: Blood Transfusion Reaction, Clotting Problems, Sickle Cell Disease, Hematologic Cancer, Blood Disorders Reproductive: History of: Ovarian Cysts, Complication No history of: Abnormal Pap Smear, Breast Cancer, Endometriosis, Ectopic , Sexually Transmitted Disorders, Reproductive Cancer Other: History of: Anesthesia Reactions (PT STATES SHE DOES NOT WANT TO WAKE UP AFTER SURGERY.), Cancer, Skin Problems (CANCER) No history of: Anaphylaxis, Eczema, HIV, Malignant Hyperthermia, MRSA, Vancomycin-Resistant Enterococci, Miscellaneous Medical Problems - Surgical History Cardiac Surgeries: Sugical HX of: Femoral-Popliteal Bypass Graft (RIGHT SIDE IN [place], [place] Cardiac Catheterization Patient Denies: Cardiac Surgery, Carotid Endarterectomy, Internal Defibrillator, Vascular Access Devices Thoracic Surgeries: Patient denies;: Kidney (Renal Surgery), Lithotripsy, Nephrectomy, Organ Transplant, Lobectomy Neurologic Surgeries: Patient denies: Brain Aneurysm, Cerebral Hemorrhage, Neurologic Surgery HEENT Surgeries: Surgical HX of: Eye Surgery (REMOVAL CATARACTS), Thyroid Surgery, Tonsilectomy & Adenoidectomy Patient denies: Carotid Endarterectomy Abdominal Surgeries: Surgical HX of: Appendectomy, Cholecystectomy, Colonoscopy , EGD, Hernia Repair Patient denies: Abdominal Surgery, Gastric Bypass Surgery, Splenectomy Reproductive Surgeries: Surgical HX of;: Section (X2), Gynecologic Surgery (hysterectomy), Hysterectomy Patient denies;: Breast Surgery, Cystoscopy, Dilation and Curettage, Genitourinary Surgery, Tubal Ligation Orthopedic Surgeries: Patient denies;: Implanted Devices, Orthopedic Surgery, Spinal Surgery, Total Hip Replacement, Total Knee Replacement - Family History Family History: Reports;: Family Cancer (sisters and a brother with lung cancer) , Family Diabetes (DAD), Family Hypertension (PARENTS), Family Stroke Denies;: Family Anesthesia Reaction, Family Heart Disease, Family Psychiatric Problems - Social History Smoking Status: Smoker, status unknown Frequency of Alcohol Use: None Type of Drug Use: None Exam Vital Signs: Vital Signs Temperature 98.6 F 08/30/16 04:00 Pulse Rate 79 08/30/16 08:05 Respiratory Rate 12 08/30/16 08:05 Blood Pressure 120/49 08/30/16 08:05 O2 Sat by Pulse Oximetry 100 08/30/16 08:05 - General General appearance: alert, in no apparent distress - Head Head exam: Present: atraumatic, normocephalic - Eye Eye exam: Present: PERRL, EOMI - ENT ENT exam: Present: mucous membranes moist. Absent: mucous membranes dry - Neck Neck exam: Present: full ROM. Absent: tenderness - Chest Chest inspection: Present: symmetric chest wall rise. Absent: tenderness - Respiratory Respiratory exam: Present: normal lung sounds bilaterally. Absent: wheezes - Cardiovascular Cardiovascular exam: Present: regular rate, normal rhythm, normal heart sounds. Absent: bradycardia - Abdominal Exam Abdominal exam: Present: soft, normal bowel sounds. Absent: tenderness - Extremities Exam Extremities exam: Present: full ROM. Absent: tenderness - Back Exam Back exam: Present: full ROM. Absent: tenderness - Neurological Exam Neurological exam: Present: alert, oriented X3, CN II-XII intact - Psychiatric Psychiatric exam: Present: normal affect, normal mood - Skin Skin exam: Present: warm, dry, intact, normal color. Absent: rash Results - Labs CBC & BMP: 08/30/16 04:02 08/29/16 22:40 Lab Results: I have reviewed the patients labs Labs: Laboratory Tests 08/29/16 08/29/16 15:58 15:58 WBC 16.1 H RBC 3.02 L Hgb 10.0 L Hct 28.8 L Plt Count 264 Lymph % (Auto) 20.2 L Neut # (Auto) 11.1 H Wallace # (Auto) 1.3 H Sodium 136 Potassium 3.3 L Chloride 95 L Carbon Dioxide 32 BUN 33 H Creatinine 7.40 H GFR Calculation 5 BUN/Creatinine Ratio 4.00 L AST 116 H Total Protein 5.5 L Albumin 1.8 L Globulin 3.7 H Albumin/Globulin Ratio 0.4 L Disposition Clinical Impression: Generalized weakness, Low grade fever, Possible viral syndrome, End stage renal disease on dialysis, Anemia Case discussed with: patient, patient's family Disposition: Still a Patient Condition: Stable
[2016-08-29] MEDS ORDERED: ONDANSETRON 4 MG/2 ML VIAL IV PRN (17:23)
[2016-08-29] MEDS ORDERED: ACETAMINOPHEN 325 MG TABLET PO PRN (17:23)
--- NOTE | 2016-08-29 18:06 | EKG Report ---
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
[2016-08-29] MEDS ORDERED: NITROGLYCERIN 2% OINT 1 INCH/GM PACK TOP STA (18:16)
--- NOTE | 2016-08-29 18:18 | XRay Report ---
2 view chest. Indication: Weakness and shortness of breath. Comparison: January 11, 2016. The heart is enlarged. There is uncoiling of the thoracic aorta with calcification in the aortic knob. The lung howe are mildly hyperexpanded. Interstitial fibrosis is noted. There is suspected scarring at the left lung base, similar to the previous exam. There is exaggerated kyphosis of the thoracic spine with demineralization. Healed rib fractures along the left upper thorax. Impression: 1. Cardiomegaly. 2. Chronic lung changes. PROCEDURE INTERPRETED AT [facility] DEPARTMENT OF RADIOLOGY Final Report Signed by: Dr. Chelsie Byers
[2016-08-29] MEDS ORDERED: POTASSIUM BICARB EFFERVESCENT 25 MEQ TABLET PO ONE ×2 (18:19→18:25)
[2016-08-29] MEDS ORDERED: NITROGLYCERIN 2% OINT 1 INCH/GM PACK TOP ONE (18:24)
[2016-08-29] MEDS ORDERED: ASPIRIN 325 MG TABLET PO STA (18:26)
[2016-08-29] MEDS ORDERED: NITROGLYCERIN SL 0.4 MG TABLET SL STA ×2 (18:26→18:47)
[2016-08-29] MEDS ORDERED: NITROGLYCERIN SL 0.4 MG TABLET SL ONE (18:30)
[2016-08-29] MEDS ORDERED: ASPIRIN 325 MG TABLET ONE (18:30)
[2016-08-29] MEDS ORDERED: ONDANSETRON 4 MG/2 ML VIAL IV STA (18:33)
[2016-08-29] MEDS ORDERED: MORPHINE 2 MG/1 ML SYRINGE IV STA (18:33)
[2016-08-29] MEDS ORDERED: ONDANSETRON 4 MG/2 ML VIAL ONE (18:37)
[2016-08-29] MEDS ORDERED: MORPHINE 2 MG/1 ML SYRINGE ONE (18:37)
[2016-08-29 18:41] LABS: CKMB % 7.8 %
[2016-08-29 18:42] LABS: Troponin I Only 28.9 NG/ML (0.00-0.045)
--- NOTE | 2016-08-29 18:44 | Family Practice History&Phys ---
Assessment and Plan (1) STEMI (ST elevation myocardial infarction) Status: Acute Current Visit: Yes History of Present Illness Chief complaint: Chest pain History of present illness: Ms. Fam is a 81 year old female Patient 81-year-old white female presented emergency room complaining of fatigue and some shortness of breath. She had no fever chills or any other specific complaints. Patient was seen and evaluated by Dr. Sifuentes with no specific abnormality being found. Patient was admitted to Dr. Eliza Fam's services and chest x-ray and EKG for admission purposes were made. Patient was noted to have an abnormal EKG and I was notified by Dr. Beach of this development. When I saw the patient she had prominent QRS widening with ST depression laterally ST elevation inferiorly with tiny Q waves seen in 3 and aVF. Patient was having severe substernal chest discomfort radiating to her right arm and I was concerned she was having an acute DC. Dr. Abisai King was notified. She was started on nitroglycerin, aspirin and given morphine in the emergency room. Patient be taken to the catheterization lab for management of her acute STEMI. Home Medications Medication Instructions Recorded Confirmed Type Pantoprazole Tab [Protonix Tab] 40 mg PO BID 07/15/14 08/29/16 History Pentoxifylline [TRENtal] 400 mg PO BID 07/15/14 08/29/16 History Aspirin [Ecotrin] 81 mg PO DAILY 12/28/14 08/29/16 History Calcium Acetate [Phoslo] 2 tablet PO TID W/MEALS 05/25/15 08/29/16 History Calcitriol 0.5 mcg PO DAILY 01/11/16 08/29/16 History Hydrocodone/Acetaminophen 1 each PO TID PRN 07/09/16 08/29/16 History [Hydrocodon-Acetaminoph 7.5-325] ALPRAZolam [Xanax] 0.125 mg PO BID PRN 08/17/16 08/29/16 History Docusate Sodium Cap [Colace Cap] 100 mg PO DAILY PRN 08/17/16 08/29/16 History Levothyroxine Tab [Synthroid Tab] 137 mcg PO DAILY 08/17/16 08/29/16 History Ondansetron Tab [Zofran Tab] 4 mg PO DAILY PRN 08/17/16 08/29/16 History Pravastatin [Pravachol] 40 mg PO BEDTIME 08/29/16 08/29/16 History Allergies Allergy/AdvReac Type Severity Reaction Status Date / Time Neuromuscular Blockers, Allergy Intermediate SHORTNESS Verified 08/09/16 15:14 Steroidal OF BREATH regadenoson Allergy Mild Cough Verified 08/09/16 15:14 Sulfa (Sulfonamide Allergy Mild RASH Verified 08/09/16 15:14 Antibiotics) enalaprilat [From Vasotec] AdvReac Mild SHORTNESS Verified 08/09/16 15:14 OF BREATH Penicillins AdvReac Mild ITCHING Verified 08/09/16 15:14 - Constitutional Constitutional: Present: fatigue, weakness - EENT Eyes: Absent: blurry vision, loss of vision Ears: Absent: decreased hearing, ear pain Nose, mouth and throat: Absent: dysphagia, headache(s), sinus pressure, sore throat - Cardiovascular Cardiovascular: Present: chest pain at rest. Absent: orthopnea, palpitations, PND - Respiratory Respiratory: Absent: cough, dyspnea, wheezing - Gastrointestinal Gastrointestinal: Present: nausea. Absent: abdominal pain, diarrhea, dysphagia , vomiting - Genitourinary Genitourinary: Absent: difficulty urinating, dysuria - Musculoskeletal Musculoskeletal: Absent: arthralgias, back pain - Neurological Neurological: Absent: confusion, focal weakness, numbness, paresthesias - Psychiatric Psychiatric: Absent: anxiety, confusion - Endocrine Endocrine: Absent: fatigue, polydipsia, polyphagia - Hematologic/Lymphatic Hematologic/Lymphatic: Absent: easy bleeding, easy bruising Medical,Surgical,& Family Hx - Medical History Cardio: History of: Cardiac Dysrhythmia (PAROXYSMAL ATRIAL FIB), CHF, Hypertension, PVD, Valvular Heart Disease (mitral valve regurgitation), Cardiovascular Problems (PVD DR THAPA IN PAST CURRENT DR KING LAST VISIT 2016.) No history of: Aneurysm, Cerebrovascular Disease, Congenital Heart Disease, CAD, DC, Pacemaker Psychological: History of: Anxiety Disorders, Behavior Problems, Bipolar Disorder, Depression No history of: ADHD, Previous Suicide Attempt, Psychiatric/Substance Abuse Tx , Schizophrenia, Violent Behavior, Psychiatric Problems Neurology: History of: Cerebral Palsy, Peripheral Neuropathy No history of: Brain Aneurysm, Cerebral Hemorrhage, Cerebrovascular Accident , Dementia, Migraine, Multiple Sclerosis, Parkinson's Disease, Seizures, TIA, Vertigo, Neurologocal Cancer HEENT: History of: Ear Problem (GLASSES CATARACTS), Dental Problems (upper and lower dentures) No history of: Eye Problem, Glaucoma, Oral Cancer, HEENT Problems Endocrine: History of: Dyslipidemia, Thyroid Disorder (s/p thyroid resection due to thyroid CA) No history of: Adrenal Disease, Diabetes Mellitus (IDDM), Diabetes Mellitus ( NIDDM), Endocrine Cancer, Endocrine Problems Rheumatology: History of;: Gout, Rheumatoid Arthritis No history of;: Fibromyalgia, Myasthenia Gravis, Systemic Lupus Erythematosus , Rheumatological Problems Respiratory: History of: Asthma, Pulmonary Hypertension No history of: Bronchitis, COPD, Intubation, Obstructive Sleep Apnea, Pulmonary Embolism, Pneumonia, Lung Cancer, Respiratory Problems (FLU VAC- YES; PNEU VAC-YES.) Renal: History of: Dialysis (PERITONEAL OVERNIGHT [address] KAPADIA [address] HAMPTON.), Renal Failure No history of: Renal (Kidney) Cancer, Renal Problems Genitourinary: History of: Kidney Stones No history of: Bladder Problem, Recurring Urinary Tract Infections, Genitourinary Cancer, Problems Gastrointestinal: History of: GERD, GI Problems (nausea, vomiting, diarrhea started a week ago) No history of: Bowel Obstruction, Clostridium Difficile, Crohn's Disease, Diverticulitis/ Diverticulosis, Esophageal Varices, Gastrointestinal Bleed, Hemorrhoids, Hematochezia, Hepatitis, Liver Problems, Pancreatitis, Polyps, Ulcerative Colitis, Gastrointestinal Cancer Musculoskeletal: History of: Back/Neck Problems (chronic back pain. DR GUTIERREZ.) No history of: Amputation, Degenerative Disk Disease, Herniated Disk, Osteoporosis, Musculoskeletal Cancer, Musculoskeletal Problems Hematology: History of: Anemia (CHRONIC), Bleeding Problems No history of: Blood Transfusion Reaction, Clotting Problems, Sickle Cell Disease, Hematologic Cancer, Blood Disorders Reproductive: History of: Ovarian Cysts, Complication No history of: Abnormal Pap Smear, Breast Cancer, Endometriosis, Ectopic , Sexually Transmitted Disorders, Reproductive Cancer Other: History of: Anesthesia Reactions (PT STATES SHE DOES NOT WANT TO WAKE UP AFTER SURGERY.), Cancer, Skin Problems (CANCER) No history of: Anaphylaxis, Eczema, HIV, Malignant Hyperthermia, MRSA, Vancomycin-Resistant Enterococci, Miscellaneous Medical Problems - Surgical History Cardiac Surgeries: Sugical HX of: Femoral-Popliteal Bypass Graft (RIGHT SIDE IN [place]), Cardiac Catheterization Patient Denies: Cardiac Surgery, Carotid Endarterectomy, Internal Defibrillator, Vascular Access Devices Thoracic Surgeries: Patient denies;: Kidney (Renal Surgery), Lithotripsy, Nephrectomy, Organ Transplant, Lobectomy Neurologic Surgeries: Patient denies: Brain Aneurysm, Cerebral Hemorrhage, Neurologic Surgery HEENT Surgeries: Surgical HX of: Eye Surgery (REMOVAL CATARACTS), Thyroid Surgery, Tonsilectomy & Adenoidectomy Patient denies: Carotid Endarterectomy Abdominal Surgeries: Surgical HX of: Appendectomy, Cholecystectomy, Colonoscopy , EGD, Hernia Repair Patient denies: Abdominal Surgery, Gastric Bypass Surgery, Splenectomy Reproductive Surgeries: Surgical HX of;: Section (X2), Gynecologic Surgery (hysterectomy), Hysterectomy Patient denies;: Breast Surgery, Cystoscopy, Dilation and Curettage, Genitourinary Surgery, Tubal Ligation Orthopedic Surgeries: Patient denies;: Implanted Devices, Orthopedic Surgery, Spinal Surgery, Total Hip Replacement, Total Knee Replacement - Family History Family History: Reports;: Family Cancer (sisters and a brother with lung cancer) , Family Diabetes (DAD), Family Hypertension (PARENTS), Family Stroke Denies;: Family Anesthesia Reaction, Family Heart Disease, Family Psychiatric Problems - Social History Smoking Status: Smoker, status unknown Frequency of Alcohol Use: None Type of Drug Use: None Exam - Constitutional Vitals: Period Temp Pulse Resp BP Sys/Sky Pulse Ox Last 24 Hr 99.1 F-99.1 F 70-80 14-20 140-156/44-91 93-97 Exam: General: Objective patient is a well-developed white female who is able give a good history and appears uncomfortable. HEENT: Pupils equal and reactive to light. Patent nares and airway Neck: No meningismus, adenopathy, thyromegaly. There are no auscultated carotid bruits. Cardiovascular: Regular rhythm. Patient's noted to have a 3 over systolic ejection murmur at the apex and left base. Chest: Clear to auscultation without rales rhonchi wheezes. Abdomen: Soft nontender to palpation No masses, rebound, guarding or tenderness. Neuro: Cranial nerves intact and DTRs and strength symmetric in all extremities. Dermatologic: No evidence of abnormal lesions or masses. Musculoskeletal: There is no joint swelling or tenderness or deformity. Extremities: Is no calf swelling or tenderness. Results - Labs CBC & BMP: 08/29/16 15:58 08/29/16 15:58 Lab Results: I have reviewed the past 24 hour labs - Impressions Patient's noted to have widened QRS which is a certain change from her previous EKGs. Patient is noted to have prominent ST depressions and T-wave inversion in V2 V3 and slightly in V4. She had ST depression in V5 and V6 with tiny Q waves in 3 and aVF as well as slight ST depression in 3. I believe she is having a posterior wall DC. - Diagnostic Findings Procedure: Chest x-ray: report reviewed by me (Cardiomegaly) Critical Care Time Critical Care Time: Yes Total Critical Care Time: 30
[2016-08-29] MEDS: SODIUM CHLORIDE 0.9% 1,000 ML IV SCH ×2 (18:59→23:24)
[2016-08-29] MEDS ORDERED: ENOXAPARIN 30 MG/0.3 ML SYRINGE IV STA (19:00)
[2016-08-29] MEDS ORDERED: ENOXAPARIN 30 MG/0.3 ML SYRINGE ONE (19:01)
[2016-08-29] MEDS ORDERED: LIDOCAINE 1% 20 ML VIAL ONE (19:04)
[2016-08-29] MEDS ORDERED: fentaNYL 100 MCG/2 ML VIAL ONE (19:05)
[2016-08-29] MEDS ORDERED: MIDAZOLAM 2 MG/2 ML VIAL ONE ×2 (19:05→20:10)
--- NOTE | 2016-08-29 19:11 | Cardiology Consult Note ---
Assessment and Plan - Time spent with patient Time spent with patient: Greater than 30 minutes (1) ME, acute, non ST segment elevation Status: Acute Assessment and plan: This is probably within the last 12-24 hours. To be longer. CPK is minimally elevated. It though is not an ST segment elevation microinfarction there is no evidence of that on the ECG. On comparison to prior ECGs there is no change except for some anterior T-wave inversion is more significant than previous. Current Visit: Yes (2) Elevated troponin Status: Acute Assessment and plan: This would indicate that she has had a myocardial infarction within probably the last 12-24 hours. Current Visit: Yes (3) Peripheral vascular disease Status: Chronic Current Visit: No (4) PAF (paroxysmal atrial fibrillation) Status: Chronic Current Visit: No (5) Bilateral carotid artery disease Status: Chronic Current Visit: No (6) End stage renal disease on dialysis Status: Chronic Assessment and plan: On peritoneal dialysis. Current Visit: Yes (7) Anemia Status: Acute Current Visit: Yes History of Present Illness - Data of Consult Patient: known to practice within the last 3 years Consult date: 08/29/16 Requesting Physician: Brent Kapadia - Consult Narrative Reason for consult: NSTEMI History of present illness: Ms. Fam is a 81 year old female who appear followed by Dr. Heather Fam. She presented today apparently to the emergency room complaining of fatigue and shortness of breath. This is been going progressive for the last almost 24 hours. She was evaluated in the emergency room. Her chest x-ray was interpreted as cardiomegaly and chronic lung changes but apparently nothing acute. Her ECG revealed her current continued ST-T abnormalities intraventricular conduction abnormalities. She had may or pronounced as T abnormalities anteriorly. All of the ECG abnormalities are unchanged in comparison to prior ECGs. The patient complained of some chest pain which she did have some chest pain on and off. Her troponin came back at 28.9. Her total CPK was 211 and her CPK-MB was 16.5. Her creatinine is 7.4 but she is chronic peritoneal dialysis. She dialyzes last night which is what she does dialyzing at night. Should be noted this is not an ST segment elevation microinfarction. The patient at this time is complaints of nonspecific minimal chest pain little short of breath. She did recently have a cardiac perfusion study about 6 weeks ago that did not reveal any perfusion abnormalities. Her ejection fraction was interpreted as is 56%. Dr. Kapadia felt the acute myocardial infarction declared acute myocardial infarction and called the Scheduler and he called me. We are now here to do a cardiac catheterization. I discussed cardiac catheterization with the patient and her reviewing indication procedure how to proceed be carried out the risk. I discussed cardiac catheterization and percutaneous coronary intervention with the patient and available family. I reviewed with them the indications for the procedure and the basis of how the procedure would be carried out. I also reviewed with them the risk of the procedure which include but not necessarily limited to access site bleeding, bruising, pain, swelling or vascular injury that may require emergency vascular surgery, blood transfusion, or thrombin injection. Also discussed the possibility of stroke, myocardial infarction, arrhythmia which may require electrocardioversion, and the possibility of dye reaction that would require medical therapy. Also discussed the possibility of coronary artery injury, ruptured, closure or perforation that may require emergency bypass surgery. We also discussed the possibility of from a major complication. They voice understanding and agree to proceed. Her history is significant in that she has dyslipidemia as well as chronic renal failure and is on peritoneal dialysis. She also has paroxysmal atrial fibrillation is been on medication for this. Other issues is that of hypertension and prior history of coronary disease and carotid artery disease. She had peripheral actually has some type of procedure the right groin. She has had bilateral iliac stenosis. CC: Kang Sifuentes, - Home Medications and Allergies Home Medications: Home Medications Medication Instructions Recorded Confirmed Type Pantoprazole Tab [Protonix Tab] 40 mg PO BID 07/15/14 08/29/16 History Pentoxifylline [TRENtal] 400 mg PO BID 07/15/14 08/29/16 History Aspirin [Ecotrin] 81 mg PO DAILY 12/28/14 08/29/16 History Calcium Acetate [Phoslo] 2 tablet PO TID W/MEALS 05/25/15 08/29/16 History Calcitriol 0.5 mcg PO DAILY 01/11/16 08/29/16 History Hydrocodone/Acetaminophen 1 each PO TID PRN 07/09/16 08/29/16 History [Hydrocodon-Acetaminoph 7.5-325] ALPRAZolam [Xanax] 0.125 mg PO BID PRN 08/17/16 08/29/16 History Docusate Sodium Cap [Colace Cap] 100 mg PO DAILY PRN 08/17/16 08/29/16 History Levothyroxine Tab [Synthroid Tab] 137 mcg PO DAILY 08/17/16 08/29/16 History Ondansetron Tab [Zofran Tab] 4 mg PO DAILY PRN 08/17/16 08/29/16 History Pravastatin [Pravachol] 40 mg PO BEDTIME 08/29/16 08/29/16 History Allergies/Adverse Reactions: Allergies Allergy/AdvReac Type Severity Reaction Status Date / Time Neuromuscular Blockers, Allergy Intermediate SHORTNESS Verified 08/09/16 15:14 Steroidal OF BREATH regadenoson Allergy Mild Cough Verified 08/09/16 15:14 Sulfa (Sulfonamide Allergy Mild RASH Verified 08/09/16 15:14 Antibiotics) enalaprilat [From Vasotec] AdvReac Mild SHORTNESS Verified 08/09/16 15:14 OF BREATH Penicillins AdvReac Mild ITCHING Verified 08/09/16 15:14 Review of systems: General: Patient complains of shortness of breath but no fever chills. No weight change. HCT: No acute visual auditory changes. Neck: No recent thyroid abnormalities or disease. Pulmonary: Shortness of breath described in history of present illness. No hemoptysis. Cardiovascular: See history present illness. Gastrointestinal: No GI bleed melena hematochezia. She does do peritoneal dialysis. Genitourinary: She is end-stage renal disease. Skeletal: Some arthritic symptomatology. Neurologic: Denies strokes, seizures. Hematologic: No bleeding disorders issues. Psychiatric: No history of anxiety or depressive disorders. Medical,Surgical,& Family Hx - Medical History Cardio: History of: Cardiac Dysrhythmia (PAROXYSMAL ATRIAL FIB), CHF, Hypertension, PVD, Valvular Heart Disease (mitral valve regurgitation), Cardiovascular Problems (PVD DR THAPA IN PAST CURRENT DR KING LAST VISIT 2016.) No history of: Aneurysm, Cerebrovascular Disease, Congenital Heart Disease, CAD, ME, Pacemaker Psychological: History of: Anxiety Disorders, Behavior Problems, Bipolar Disorder, Depression No history of: ADHD, Previous Suicide Attempt, Psychiatric/Substance Abuse Tx , Schizophrenia, Violent Behavior, Psychiatric Problems Neurology: History of: Cerebral Palsy, Peripheral Neuropathy No history of: Brain Aneurysm, Cerebral Hemorrhage, Cerebrovascular Accident , Dementia, Migraine, Multiple Sclerosis, Parkinson's Disease, Seizures, TIA, Vertigo, Neurologocal Cancer HEENT: History of: Ear Problem (GLASSES CATARACTS), Dental Problems (upper and lower dentures) No history of: Eye Problem, Glaucoma, Oral Cancer, HEENT Problems Endocrine: History of: Dyslipidemia, Thyroid Disorder (s/p thyroid resection due to thyroid CA) No history of: Adrenal Disease, Diabetes Mellitus (IDDM), Diabetes Mellitus ( NIDDM), Endocrine Cancer, Endocrine Problems Rheumatology: History of;: Gout, Rheumatoid Arthritis No history of;: Fibromyalgia, Myasthenia Gravis, Systemic Lupus Erythematosus , Rheumatological Problems Respiratory: History of: Asthma, Pulmonary Hypertension No history of: Bronchitis, COPD, Intubation, Obstructive Sleep Apnea, Pulmonary Embolism, Pneumonia, Lung Cancer, Respiratory Problems (FLU VAC- YES; PNEU VAC-YES.) Renal: History of: Dialysis (PERITONEAL OVERNIGHT [address] KAPADIA [address] HAMPTON.), Renal Failure No history of: Renal (Kidney) Cancer, Renal Problems Genitourinary: History of: Kidney Stones No history of: Bladder Problem, Recurring Urinary Tract Infections, Genitourinary Cancer, Problems Gastrointestinal: History of: GERD, GI Problems (nausea, vomiting, diarrhea started a week ago) No history of: Bowel Obstruction, Clostridium Difficile, Crohn's Disease, Diverticulitis/ Diverticulosis, Esophageal Varices, Gastrointestinal Bleed, Hemorrhoids, Hematochezia, Hepatitis, Liver Problems, Pancreatitis, Polyps, Ulcerative Colitis, Gastrointestinal Cancer Musculoskeletal: History of: Back/Neck Problems (chronic back pain. DR GUTIERREZ.) No history of: Amputation, Degenerative Disk Disease, Herniated Disk, Osteoporosis, Musculoskeletal Cancer, Musculoskeletal Problems Hematology: History of: Anemia (CHRONIC), Bleeding Problems No history of: Blood Transfusion Reaction, Clotting Problems, Sickle Cell Disease, Hematologic Cancer, Blood Disorders Reproductive: History of: Ovarian Cysts, Complication No history of: Abnormal Pap Smear, Breast Cancer, Endometriosis, Ectopic , Sexually Transmitted Disorders, Reproductive Cancer Other: History of: Anesthesia Reactions (PT STATES SHE DOES NOT WANT TO WAKE UP AFTER SURGERY.), Cancer, Skin Problems (CANCER) No history of: Anaphylaxis, Eczema, HIV, Malignant Hyperthermia, MRSA, Vancomycin-Resistant Enterococci, Miscellaneous Medical Problems - Surgical History Cardiac Surgeries: Sugical HX of: Femoral-Popliteal Bypass Graft (RIGHT SIDE IN [place] Cardiac Catheterization Patient Denies: Cardiac Surgery, Carotid Endarterectomy, Internal Defibrillator, Vascular Access Devices Thoracic Surgeries: Patient denies;: Kidney (Renal Surgery), Lithotripsy, Nephrectomy, Organ Transplant, Lobectomy Neurologic Surgeries: Patient denies: Brain Aneurysm, Cerebral Hemorrhage, Neurologic Surgery HEENT Surgeries: Surgical HX of: Eye Surgery (REMOVAL CATARACTS), Thyroid Surgery, Tonsilectomy & Adenoidectomy Patient denies: Carotid Endarterectomy Abdominal Surgeries: Surgical HX of: Appendectomy, Cholecystectomy, Colonoscopy , EGD, Hernia Repair Patient denies: Abdominal Surgery, Gastric Bypass Surgery, Splenectomy Reproductive Surgeries: Surgical HX of;: Section (X2), Gynecologic Surgery (hysterectomy), Hysterectomy Patient denies;: Breast Surgery, Cystoscopy, Dilation and Curettage, Genitourinary Surgery, Tubal Ligation Orthopedic Surgeries: Patient denies;: Implanted Devices, Orthopedic Surgery, Spinal Surgery, Total Hip Replacement, Total Knee Replacement - Family History Family History: Reports;: Family Cancer (sisters and a brother with lung cancer) , Family Diabetes (DAD), Family Hypertension (PARENTS), Family Stroke Denies;: Family Anesthesia Reaction, Family Heart Disease, Family Psychiatric Problems - Social History Smoking Status: Smoker, status unknown Frequency of Alcohol Use: None Type of Drug Use: None Physical Examination Vital Signs Temp Pulse Resp BP Pulse Ox 99.1 F 72 18 140/65 93 L 08/29/16 15:06 08/29/16 15:06 08/29/16 15:06 08/29/16 15:06 08/29/16 15:06 Exam: General appearance: Over weight, no acute distress Head exam: normal inspection, atraumatic Eye exam: Pupils are equal and reactive. EOMI. There is no trauma. Ear exam: Anatomically normal. Normal auditory acuity to conversation. Oral exam: No significant oral lesions. Neck exam: normal inspection no JVD. No carotid bruit. Trachea is in midline. Respiratory exam: clear to auscultation bilaterally anteriorly with good air movement but quiet. No rales, rhonchi or wheezes. Cardiovascular exam: regular rate and rhythm, 1 to 2/6 systolic murmur. No precordial lift. No bruits over the major arteries. Chest wall/torso: Anatomically normal. No tenderness, deformity Peripheral Pulses: 2+ throughout. GI/Abdominal exam: normal bowel sounds, soft and nontender. Musculoskeletal/Extremities exam: normal inspection without edema or cyanosis. No deformities or trauma. Neurological exam: alert, oriented X3. There is no gross neurologic deficits. Psychiatric exam: normal affect, normal mood. Cognitive function is grossly intact. Skin exam: normal color, warm. No rashes or other skin lesions. Result/EKG - Labs CBC & BMP: 08/30/16 04:02 08/29/16 22:40 Lab Results: I have reviewed the past 24 hour labs (Troponin is elevated.) Labs: Laboratory Results - last 24 hr 08/29/16 08/29/16 08/29/16 15:58 15:58 18:25 WBC 16.1 H RBC 3.02 L Hgb 10.0 L Hct 28.8 L MCV 95.4 MCH 33 MCHC 34.7 RDW 14.4 Plt Count 264 MPV 11.7 Neut % (Auto) 69.3 Lymph % (Auto) 20.2 L [place] % (Auto) 8.0 Eos % (Auto) 0.7 Baso % (Auto) 0.4 Neut # (Auto) 11.1 H Lymph # (Auto) 3.2 [place] # (Auto) 1.3 H Eos # (Auto) 0.1 Baso # (Auto) 0.1 Immature Gran % 1.4 Nucleated RBC % 0.0 Immature Gran # 0.22 Nucleated RBCs # 0.00 Sodium 136 Potassium 3.3 L Chloride 95 L Carbon Dioxide 32 Anion Gap 12.3 BUN 33 H Creatinine 7.40 H GFR Calculation 5 BUN/Creatinine Ratio 4.00 L Glucose 92 Calculated Osmolality 278.0 Calcium 9.6 Total Bilirubin < 0.39 AST 116 H ALT 23 Alkaline Phosphatase 77 Total Creatine Kinase 211 H CK-MB (CK-2) 16.5 H CK and CKMB Interp 7.8 Troponin I 28.900 H Total Protein 5.5 L Albumin 1.8 L Globulin 3.7 H Albumin/Globulin Ratio 0.4 L - Impressions Impressions: Sinus rhythm with intraventricular conduction volume ST-T abnormalities.
--- NOTE | 2016-08-29 19:21 | History and Physical Update ---
Sedation H&P Update - History and Physical H&P was reviewed, the patient examined and there: are no changes in the patients condition since last H&P was completed. - Dictation Physical: refer to H&P completed by admitting physician - Physical Exam Mental Status: alert and oriented Heart: regular rate and rhythm Lung: clear to auscultation Abdomen: within normal limits Vitals: within normal limits History and Physical Changes: None - Sedation Plan for Sedation: moderate Patient Consent: Procedure disscussed with patient and patinet has consented., Risks and benefits were discussed with patient,including infection,, bleeding, injury to surrounding structures, seizure, temporary nerve, Patient understands and accepts potential risks/benefits and agrees to, proceed. ASA Class: IV Airway Assessment: Class III: Soft palate, base of uvula visible
[2016-08-29] MEDS ORDERED: TIROFIBAN 5,000 MCG/100 ML PREMIX IV ONE (20:00)
--- NOTE | 2016-08-29 20:31 | Operative Note ---
Date of procedure: 08/29/16 Procedure Preformed: Left heart catheterization with attempted intervention of the mid RCA. Surgeon / Physician: Georges Galaviz Medical Claims Examiner: Rodolfo Ward Post-op diagnosis: same Findings: Please see full report. The patient had a high-grade stenosis of the mid RCA with distal vessel being small. RCA had a very bearing takeoff right by the left main coronary. Distal obtuse marginal branch with thrombus. This was left alone. See full report. Specimens: none sent Estimated blood loss: minimal Condition: stable Anesthesia: local, conscious sedation Disposition: ICU
[2016-08-29] MEDS ORDERED: CLOPIDOGREL 300 MG TABLET PO ONE (20:32)
[2016-08-29] MEDS ORDERED: CLOPIDOGREL 300 MG TABLET ONE (20:39)
[2016-08-29] MEDS ORDERED: HYDROmorphone 2 MG/1 ML VIAL IV PRN (20:43)
--- NOTE | 2016-08-29 21:08 | Cardiac Catheterization ---
Date of Procedure:: 08/29/16 Pre-op Diagnosis: See below Post-op diagnosis: same Procedure: LEFT HEART CATHERIZATION History: 81-year-old female who was admitted through the emergency room with some chest pain but mainly shortness of breath and been going on for 12+ hours. Her troponin was elevated. Her ECG was abnormal but very similar to her previous ECGs. Because of elevated troponin Dr. Landeros to clear this patient had a acute infarct. He requested that she had a cardiac catheterization tonight. She had a recent cardiac perfusion study that did not reveal perfusion abnormalities. Pre-Op diagnosis: Patient with myocardial infarction is 12+ hours old with elevated troponin and mildly elevated CPK. Certainly history consistent with recent non-ST segment elevation myocardial infarction. Postoperative diagnosis: She had thrombus in the distal portion obtuse marginal branch which is probably the acute offending event. This was not felt to be amenable though to intervention was left alone. She had a tight mid RCA stenosis but had a very unusual takeoff of the RCA from the ostium of the left main. Failed attempted crossing the RCA stenosis. Procedures: 1. Left heart catheterization. 2. Left ventricular angiogram. 3. Selective left and right coronary angiograms. 4. Attempted crossing of the mid RCA lesion failed. Equipment: 6 Croatian arterial sheath, JL4 and JR4 diagnostic catheters. We had difficulty cannulating the right coronary artery. Multiple catheters used including a AL-1, AL-2, and a multipurpose A1 catheter. Multipurpose catheter cannulated the vessel. PCI of RCA: Multiple guide catheters were were attempted including a EBU 4.0 , MB 2, AL 2 and AL-1. PT choice extra support guidewire. Medications: Preoperative Benadryl and Valium given by mouth. Lidocaine 1% local anesthesia 10 mls administered by myself. Intraprocedure patient received Versed 3 mgs IVP, fentanyl 100 mcg IVP. Aggrastat bolus and infusion but this was stopped in the procedure. Complications: None immediate. Contrast: Omnipaque 371 milliliters. Description of procedure: After informed consent the patient was given preoperative medications and brought to the catheterization laboratory where their right groin was prepped and draped in usual fashion. IV sedation was then obtained after which local anesthesia was administered at the right groin over the right common femoral artery. Using modified Seldinger technique the right common femoral artery was cannulated with 6 Croatian arterial sheath placed. The JL4 diagnostic coronary catheter was then advanced through the sheath in a retrograde approach and used to cannulate the left coronary artery of which angiograms were obtained in multiple projections. This catheter was then removed. The JR 4 diagnostic coronary catheter was then advanced retrograde through the aorta and used to cross the aortic valve pressure measurement with pressure in the aortic root. We then attempted using his catheter to cannulate cannulate the right coronary artery but was unable to do so. It became apparent that the RCA had an abbarrent with him to use a AL-1 as well as a L2 catheter but a multipurpose A1 catheter we were able to cannulate the ostium of the RCA and obtain angiograms. The patient had a high-grade mid RCA stenosis and it was decided we would pursue this lesion. There was thrombus in a very distal portion obtuse marginal branch of the left side but this was felt to be in many hours old and because of dislocation just treat medically. For intervention we attempted multiple guide cath these were advanced over guidewire as usual. We attended the EBU 4.0 as well as an MB to an AL to guide catheters. These failed to cannulate the right coronary ostium. In AL-1 guide catheter was able to cannulate the right coronary ostium. This ostium was actually had his takeoff right beside the left main coronary. We were able to advance on one attempt a PT choice extra support guidewire and was able to approach the lesion but was never able to cross the lesion. We lost guide support and after recannulation the right coronary artery we saw that we had closure at the lesion prior secondary to trauma from the PCI wire. We were unable to get adequate guide support again for reattempting. Because the amount of contrast we had and that the vessel was a small vessel and the patient was stable we chose not to pursue this further. We did not feel we would have adequate guide support at this point now to carry out intervention. Guide catheter as well as other interventional equipment was removed and hemostasis obtained by direct manual pressure. Hemodynamic data: LV 125/11 , EDP 20 ; AO root 132/50 , mean 81 . Left ventricular angiogram: Not done Left main coronary artery angiogram: Large caliber vessel with some ostial calcification but less than 10 or 20% stenosis. It is without other stenosis or disease. Bifurcating the LAD and circumflex arteries. Left anterior descending artery angiogram: LAD proximal is a medium caliber vessel smaller than that of the circumflex artery. It extends to the posterior apical region where it tapers to a small vessel. First diagonal is a medium caliber vessel with dissected down being small. There is some calcification in the LAD mid vessel but the vessel overall is widely patent as is the branches. Circumflex artery angiogram: Circumflex arteries a large caliber vessel proximally. First obtuse marginal branch had a very proximal takeoff it was very small. Second obtuse marginal branch was a medium caliber vessel long. In its distal portion he had diffuse complex thrombus in multiple branches. Beyond this the circumflex terminating the form of a medium size third obtuse marginal branch. Between the second third obtuse marginal branch is some stenosis of at least 50 polyps to 60% with LORETO III flow. Right coronary artery angiogram: Right coronary had a very unusual takeoff right at the ostium of the left main coronary artery. Proximally is a medium caliber vessel tapered to a small vessel and its midportion with small branches distally. There was a tight mid 99% stenosis with LORETO II to LORETO III flow. PCI of RCA: This was a stented as described above. We are unable to get the guidewire to cross the 99% mid RCA stenosis and in fact had closure. Angiogram revealed contrast this level. On repeat angiogram though he had hang up of diet the very proximal portion. We may have had a dissection more proximally as well. Impression: 1. LV gram not done. 2. LVEDP is mildly elevated at 20 mmHg. 3. There is no gradient across the aortic valve. 4. Left main coronary ostial calcification and less than 20% stenosis. 5. LAD with some mid calcification but widely patent. 6. Circumflex artery with mid 50-60% stenosis. Second obtuse marginal branch with complex thrombus in its distal portion. 7. RCA has a very a variant takeoff from the ostium of the left main coronary artery. 99% mid stenosis with LORETO II to III flow. 8. Failed attempt at opening RCA stenosis with closure of the vessel. 9. Right common femoral artery hemostasis obtained by direct manual pressure. Discussion: Patient be monitored in the ICU overnight. Risk factor modification will continue. The thrombus in the second obtuse marginal branch was probably the culprit disease causing her recent symptoms elevated troponin. This though he probably been there for over 12-24 hours. Because this location and it was complex and multiple branches the distal vessel it was felt that would not be appropriate at this point to intervene. There is low vessel beyond the thrombus. The RCA certainly could cause symptoms but we did not have really significant symptoms after closure of the RCA. It was a very difficult vessel to intervene on because of its takeoff. He was a small vessel at mid vessel and beyond. We will treat the patient medically at this time. Implants: See above Anesthesia: local, moderate conscious sedation Surgeon / Physician: Georges Galaviz Marine Pipefitter Helper: other (Rodolfo Ward RT) Estimated blood loss: minimal Specimens: none sent Condition: stable Disposition: ICU/CCU - Medications / Follow-up
[2016-08-29] MEDS ORDERED: DOCUSATE SODIUM 100 MG CAPSULE PO PRN (21:10)
[2016-08-29] MEDS ORDERED: ONDANSETRON 4 MG TABLET PO PRN (21:10)
--- NOTE | 2016-08-29 21:29 | Event Note ---
Patient stable post cardiac catheterization. She denies any chest pain shortness of breath at this time.
[2016-08-29] MEDS: PENTOXIFYLLINE 400 MG TABLET PO SCH (21:35)
[2016-08-29] MEDS: METOPROLOL TARTRATE 50 MG TABLET PO SCH (21:35)
[2016-08-29] MEDS: PANTOPRAZOLE 40 MG TABLET PO SCH (21:35)
[2016-08-29] MEDS: DOCUSATE SODIUM 100 MG CAPSULE PO SCH (21:35)
[2016-08-29] MEDS: PRAVASTATIN 40 MG TABLET PO SCH (21:36)
[2016-08-29] MEDS ORDERED: ETOMIDATE 20 MG/10 ML VIAL IV ONE (22:02)
[2016-08-29] MEDS ORDERED: SUCCINYLCHOLINE 200 MG/10 ML VIAL ONE (22:02)
[2016-08-29] MEDS ORDERED: DOPamine 800 MG/250 ML PREMIX IV ONE (22:17)
[2016-08-29] MEDS: DOPamine 800 MG/250 ML PREMIX IV SCH (22:20)
[2016-08-29] MEDS ORDERED: AMIODARONE INJ 450 MG in DEXTROSE 5% 241 ML IV SCH (22:30)
[2016-08-29] MEDS ORDERED: PROPOFOL 1,000 MG/100 ML BOTTLE IV ONE (22:32)
--- NOTE | 2016-08-29 22:33 | Event Note ---
Patient this evening is doing well and in fact the family was coming to visit. She suddenly went into ventricular fibrillation. Family was removed from the room and CPR started. Patient was bagged. I arrived shortly after a code was called. The patient was shocked back in sinus rhythm. She will receive an amp of epinephrine prior to my arrival. She converted to sinus rhythm with pulse. Emergency room physician intubated the patient. Chest x-ray revealed with the tube was just above the chuck and was pulled back 1-1/2 cm. The patient was tachycardic but this is probably felt to be secondary to epinephrine as well as she has a history of having PAT which she did have in the catheterization laboratory as well. She was given a bolus of amiodarone 300 mg and started on an infusion for loading. She is placed on the ventilator after she was intubated. She remained fairly stable for several minutes but then began to significant bradycardia and lost her pulse which should be PEA. She had CPR again and received an amp of epinephrine and dopamine was started about this time. The patient asked regarding her dopamine and her sedation wearing off her heart rates remained in the 80s and 90s systolic pressures in the 130s. We will titrate her dopamine and propofol for her pressure and sedation. NG tube is in place. Will monitor her. I discussed with the family her status. She certainly is unstable in guarded condition at this time. We will continue to monitor her situation. We will leave her on amiodarone at this time. Certainly at this time she could have progressive deterioration. One family that she is at high risk of sudden . She has multiple other medical issues and comorbid issues that make her high risk.
[2016-08-29] MEDS: PROPOFOL 1,000 MG/100 ML BOTTLE IV SCH (22:38)
[2016-08-29 23:16] LABS: Alanine Aminotransferase 40 U/L (13-56); Albumin 1.8 G/DL (3.4-5.0); Alkaline Phosphatase 93 U/L (45-117); Aspartate Amino Transferase 152 U/L (0-37); Bilirubin,Total < 0.39 MG/DL (0.2-1.0); Blood Urea Nitrogen 35 MG/DL (7-18); Calcium 9.1 MG/DL (8.5-10.1); Glucose 126 MG/DL (74-106); Osmolality,Calculated 277.2 MOS/KG (273-304); Potassium 3.3 MMOL/L (3.5-5.1); Sodium 134 MMOL/L (136-145); Total Protein 5.6 G/DL (6.4-8.3)
[2016-08-29 23:17] LABS: CKMB % 6.3 %
[2016-08-29 23:21] LABS: Troponin I Only 28.3 NG/ML (0.00-0.045)
[2016-08-29 23:28] LABS: ABG Base Excess -2.4 MMOL/L (-2.5-2.5); ABG HCO3 22.4 MMOL/L (20-26); ABG PCO2 42.8 MM HG (35-48); ABG PH 7.343 (7.35-7.45); ABG TCO2 21.3 MMOL/L (23-27); Allen Test Positive; Pt O2 Delivery Device Ventilator
[2016-08-30 02:55] LABS: ABG HCO3 25.2 MMOL/L (20-26); ABG Oxygen Saturation 94.1 % (95-100); ABG PCO2 37.8 MM HG (35-48); ABG PH 7.431 (7.35-7.45); ABG PO2 69.1 MM HG (80-95); ABG TCO2 22.8 MMOL/L (23-27); Allen Test Positive; Pt O2 Delivery Device Ventilator
[2016-08-30 04:44] LABS: Basophils # 0.1 10*3/uL (0.0-0.2); Basophils % 0.4 % (0.0-0.8); Eosinophils # 0.1 10*3/uL (0.0-0.87); Eosinophils % 0.2 % (0.00-10.9); Hematocrit 30.2 VOL% (35.7-47.0); Hemoglobin 10.5 GM/DL (12.0-16.0); Immature Granulocytes % 1.8 %; Immature Granulocytes Absolute 0.52 #; Lymphocytes # 2.6 10*3/uL (1.4-4.0); Mean Corpuscular HGB Conc 34.8 GM/DL (32-36); Mean Corpuscular Hemoglobin 33 PG (27-34); Mean Corpuscular Volume 95.6 FL (87-102); Mean Platelet Volume 12.1 FL (9.6-12.0); Monocytes # 1.8 10*3/uL (0.11-0.8); Monocytes % 6.3 % (1.7-12.7); Neutrophils # 23.2 10*3/uL (1.4-7.4); Neutrophils % 82.3 % (38.7-73.9); Platelet Count 248 T/CUMM (130-400); Red Blood Count 3.16 MC/CUMM (3.8-5.5); Red Cell Distribution Width 14.3 % (9.3-17.3); White Blood Count 28.2 T/CUMM (4-12)
[2016-08-30 05:24] LABS: VLDL CHOLESTEROL 19.2 MG/DL
[2016-08-30 05:30] LABS: Troponin I Only 31.5 NG/ML (0.00-0.045)
[2016-08-30 05:41] LABS: Anisocytosis 1+; Band Neutrophils 2 % (0-10); Hypochromasia 1+; Lymphocytes 12 % (20-55); Segmented Neutrophils 84 % (50-85); Total Cells Counted 100
[2016-08-30 05:42] LABS: Platelet Estimate Normal
[2016-08-30] MEDS: DOPamine 800 MG/250 ML PREMIX IV SCH ×2 (06:09→19:12)
--- NOTE | 2016-08-30 07:08 | XRay Report ---
Exam: XR chest 1V portable Date: 08/29/2016 10:05 PM Indication: Postintubation Comparison: 08/29/2016 Technical: AP Findings: Endotracheal tube is present at the level aortic knob. Just proximal to the chuck. Patchy interstitial infiltrate in the right base and right upper chest. Cardiac pad superimposing exam. Cardiomegaly is present. ASVD is present with vascular calcinosis. Bony structures are intact. Minimal apical pleural thickening bilaterally. Impression: 1. Endotracheal tube at the level aortic knob. 2. Right upper and lower lobe pneumonia could represent aspiration 3. cardiomegaly. PROCEDURE INTERPRETED AT [facility] DEPARTMENT OF RADIOLOGY Final Report Signed by: Dr. Jasiel Moreno
--- NOTE | 2016-08-30 07:12 | Pulmonology Consult Note ---
Assessment and Plan (1) Ventricular fibrillation Status: Acute Assessment and plan: She had episode of ventricular fibrillation requiring defibrillation as well as intubation last night. Presently on ventilator and hypoxemic. I suspect that she had an aspiration event. Current Visit: Yes (2) Acute respiratory failure Status: Acute Assessment and plan: Hypoxemia requiring high levels of FiO2. Will increase PEEP hopefully she will tolerate that. Wean as ABGs allow. Mental status appears to be good. Current Visit: Yes (3) Aspiration into airway Status: Acute Assessment and plan: This is suspected based on her abnormal chest x-ray post code. pulmonary edema in an atypical fashion may give us this x-ray as well. Will cover empirically with antibiotics. Current Visit: Yes (4) Congestive heart failure Status: Resolved Assessment and plan: Needs to resume dialysis. Defer to cardiology and nephrology. LVEDP was 20 at cath yesterday Current Visit: No Qualifiers: Congestive heart failure type: unspecified congestive heart failure type Congestive heart failure chronicity: acute on chronic Qualified Code(s): I50.9 - Heart failure, unspecified (5) ESRD on peritoneal dialysis Status: Chronic Assessment and plan: Dr. Hampton to see to resume dialysis. Current Visit: No (6) STEMI (ST elevation myocardial infarction) Status: Acute Assessment and plan: Certainly has enzyme evidence of acute myocardial infarction. Likely the cause of her ventricular fibrillation as well. Current Visit: Yes History of Present Illness Chief complaint: Post cardiac arrest History of present illness: Ms. Fam is a 81 year old female who came in yesterday with fatigue and dyspnea and developed chest pain. She had EKG findings suggestive of an acute myocardial infarction. She was taken emergently to the Oral And Maxillofacial Pathologist. She had a right coronary obstruction but they were not able to get that open. After getting back to the CCU she had an acute episode of ventricular fibrillation and had CPR as well as intubation. She is presently on the ventilator. She has upper lobe infiltrates on x-ray. Difficult to tell whether this represents congestive heart failure or more likely aspiration. Will cover with antibiotics. She has hypoxemia requiring high FiO2. Probably early ARDS. Will add antibiotics. Adjust ventilator. She has chronic renal failure and is on peritoneal dialysis. History of bipolar disorder and depression. History of mitral insufficiency. I have known her for many years and they treated her and her . Home Medications Medication Instructions Recorded Confirmed Type Pantoprazole Tab [Protonix Tab] 40 mg PO BID 07/15/14 08/29/16 History Pentoxifylline [TRENtal] 400 mg PO BID 07/15/14 08/29/16 History Aspirin [Ecotrin] 81 mg PO DAILY 12/28/14 08/29/16 History Calcium Acetate [Phoslo] 2 tablet PO TID W/MEALS 05/25/15 08/29/16 History Calcitriol 0.5 mcg PO DAILY 01/11/16 08/29/16 History Hydrocodone/Acetaminophen 1 each PO TID PRN 07/09/16 08/29/16 History [Hydrocodon-Acetaminoph 7.5-325] ALPRAZolam [Xanax] 0.125 mg PO BID PRN 08/17/16 08/29/16 History Docusate Sodium Cap [Colace Cap] 100 mg PO DAILY PRN 08/17/16 08/29/16 History Levothyroxine Tab [Synthroid Tab] 137 mcg PO DAILY 08/17/16 08/29/16 History Ondansetron Tab [Zofran Tab] 4 mg PO DAILY PRN 08/17/16 08/29/16 History Pravastatin [Pravachol] 40 mg PO BEDTIME 08/29/16 08/29/16 History Allergies Allergy/AdvReac Type Severity Reaction Status Date / Time Neuromuscular Blockers, Allergy Intermediate SHORTNESS Verified 08/09/16 15:14 Steroidal OF BREATH regadenoson Allergy Mild Cough Verified 08/09/16 15:14 Sulfa (Sulfonamide Allergy Mild RASH Verified 08/09/16 15:14 Antibiotics) enalaprilat [From Vasotec] AdvReac Mild SHORTNESS Verified 08/09/16 15:14 OF BREATH Penicillins AdvReac Mild ITCHING Verified 08/09/16 15:14 Exam (Pulmonay) H&P - Constitutional Vitals: Period Temp Pulse Resp BP Sys/Sky Pulse Ox Last 24 Hr 98.6 F-99.1 F 66-171 12-38 90-202/42-107 74-100 Exam: Patient is responsive despite sedation. Moving all 4 extremities. Blood pressure around 120 on pressors. She is on dopamine at present. Pupils react to light. Orotracheal tube in place. Neck is supple no bruits. Chest reveals a few rhonchi bilaterally. Heart normal rate rhythm no murmurs. Abdomen soft nontender no masses. Extremities no clubbing cyanosis trace of edema calves nontender. Medical,Surgical,& Family Hx - Medical History Cardio: History of: Cardiac Dysrhythmia (PAROXYSMAL ATRIAL FIB), CHF, Hypertension, PVD, Valvular Heart Disease (mitral valve regurgitation), Cardiovascular Problems (PVD DR THAPA IN PAST CURRENT DR KING LAST VISIT 2016.) No history of: Aneurysm, Cerebrovascular Disease, Congenital Heart Disease, CAD, [place], Pacemaker Psychological: History of: Anxiety Disorders, Behavior Problems, Bipolar Disorder, Depression No history of: ADHD, Previous Suicide Attempt, Psychiatric/Substance Abuse Tx , Schizophrenia, Violent Behavior, Psychiatric Problems Neurology: History of: Cerebral Palsy, Peripheral Neuropathy No history of: Brain Aneurysm, Cerebral Hemorrhage, Cerebrovascular Accident , Dementia, Migraine, Multiple Sclerosis, Parkinson's Disease, Seizures, TIA, Vertigo, Neurologocal Cancer HEENT: History of: Ear Problem (GLASSES CATARACTS), Dental Problems (upper and lower dentures) No history of: Eye Problem, Glaucoma, Oral Cancer, HEENT Problems Endocrine: History of: Dyslipidemia, Thyroid Disorder (s/p thyroid resection due to thyroid CA) No history of: Adrenal Disease, Diabetes Mellitus (IDDM), Diabetes Mellitus ( NIDDM), Endocrine Cancer, Endocrine Problems Rheumatology: History of;: Gout, Rheumatoid Arthritis No history of;: Fibromyalgia, Myasthenia Gravis, Systemic Lupus Erythematosus , Rheumatological Problems Respiratory: History of: Asthma, Pulmonary Hypertension No history of: Bronchitis, COPD, Intubation, Obstructive Sleep Apnea, Pulmonary Embolism, Pneumonia, Lung Cancer, Respiratory Problems (FLU VAC- YES; PNEU VAC-YES.) Renal: History of: Dialysis (PERITONEAL OVERNIGHT [address] KAPADIA [address] HAMPTON.), Renal Failure No history of: Renal (Kidney) Cancer, Renal Problems Genitourinary: History of: Kidney Stones No history of: Bladder Problem, Recurring Urinary Tract Infections, Genitourinary Cancer, Problems Gastrointestinal: History of: GERD, GI Problems (nausea, vomiting, diarrhea started a week ago) No history of: Bowel Obstruction, Clostridium Difficile, Crohn's Disease, Diverticulitis/ Diverticulosis, Esophageal Varices, Gastrointestinal Bleed, Hemorrhoids, Hematochezia, Hepatitis, Liver Problems, Pancreatitis, Polyps, Ulcerative Colitis, Gastrointestinal Cancer Musculoskeletal: History of: Back/Neck Problems (chronic back pain. DR GUTIERREZ.) No history of: Amputation, Degenerative Disk Disease, Herniated Disk, Osteoporosis, Musculoskeletal Cancer, Musculoskeletal Problems Hematology: History of: Anemia (CHRONIC), Bleeding Problems No history of: Blood Transfusion Reaction, Clotting Problems, Sickle Cell Disease, Hematologic Cancer, Blood Disorders Reproductive: History of: Ovarian Cysts, Complication No history of: Abnormal Pap Smear, Breast Cancer, Endometriosis, Ectopic , Sexually Transmitted Disorders, Reproductive Cancer Other: History of: Anesthesia Reactions (PT STATES SHE DOES NOT WANT TO WAKE UP AFTER SURGERY.), Cancer, Skin Problems (CANCER) No history of: Anaphylaxis, Eczema, HIV, Malignant Hyperthermia, MRSA, Vancomycin-Resistant Enterococci, Miscellaneous Medical Problems - Surgical History Cardiac Surgeries: Sugical HX of: Femoral-Popliteal Bypass Graft (RIGHT SIDE IN MS. RAISA), Cardiac Catheterization Patient Denies: Cardiac Surgery, Carotid Endarterectomy, Internal Defibrillator, Vascular Access Devices Thoracic Surgeries: Patient denies;: Kidney (Renal Surgery), Lithotripsy, Nephrectomy, Organ Transplant, Lobectomy Neurologic Surgeries: Patient denies: Brain Aneurysm, Cerebral Hemorrhage, Neurologic Surgery HEENT Surgeries: Surgical HX of: Eye Surgery (REMOVAL CATARACTS), Thyroid Surgery, Tonsilectomy & Adenoidectomy Patient denies: Carotid Endarterectomy Abdominal Surgeries: Surgical HX of: Appendectomy, Cholecystectomy, Colonoscopy , EGD, Hernia Repair Patient denies: Abdominal Surgery, Gastric Bypass Surgery, Splenectomy Reproductive Surgeries: Surgical HX of;: Section (X2), Gynecologic Surgery (hysterectomy), Hysterectomy Patient denies;: Breast Surgery, Cystoscopy, Dilation and Curettage, Genitourinary Surgery, Tubal Ligation Orthopedic Surgeries: Patient denies;: Implanted Devices, Orthopedic Surgery, Spinal Surgery, Total Hip Replacement, Total Knee Replacement - Family History Family History: Reports;: Family Cancer (sisters and a brother with lung cancer) , Family Diabetes (DAD), Family Hypertension (PARENTS), Family Stroke Denies;: Family Anesthesia Reaction, Family Heart Disease, Family Psychiatric Problems - Social History Smoking Status: Smoker, status unknown Frequency of Alcohol Use: None Type of Drug Use: None Results - Labs CBC & BMP: 08/30/16 04:02 08/29/16 22:40 Lab Results: I have reviewed the past 24 hour labs - Diagnostic Findings Procedure: Chest x-ray: image reviewed by me (Last night x-ray shows some patchy infiltrates bilaterally in the upper lung howe. ET tube good position. ) Quality Measures - VTE Contraindication to Pharmacological VTE Prophylaxis: High Risk of Bleeding
[2016-08-30] MEDS: AMIODARONE INJ 450 MG in DEXTROSE 5% 241 ML IV SCH ×2 (07:15→21:58)
[2016-08-30] MEDS ORDERED: LIDOCAINE 1% 20 ML VIAL MISC INJ ONE (07:35)
--- NOTE | 2016-08-30 07:38 | EKG Report ---
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
[2016-08-30 07:57] LABS: HIV Antigen/Antibody Result Nonreactive (Nonreactive); Hepatitis B Surface Ag Quant < 0.10 Index; Hepatitis B Surface Ag Result Negative (Negative); Hepatitis C Virus Ab Quant 0.11 Index; Hepatitis C Virus Ab Result Negative (Negative)
--- NOTE | 2016-08-30 08:08 | Operative Note ---
Date of procedure: 08/30/16 (Fiberoptic bronchoscopy) Pre-op diagnosis: Suspected aspiration Post-op diagnosis: same Procedure: After an appropriate timeout to be sure we were dealing with Soumya Fam, the ventilator was turned to 100% oxygen. Patient was on propofol sedation. Fiberoptic bronchoscope was introduced via the side arm of the endotracheal tube. ET tube tip was about 3 cm above the chuck. Chuck was sharp. Left lung was clear and free of lesions. On the right side there were slightly increased secretions but primarily some blood. There were no mucous plugs and no foreign bodies. No endobronchial lesions were seen. Saline irrigation was undertaken and we lavaged the right lung. This was sent for cultures. Bronchoscope was removed. Patient remained in the CCU on the ventilator in stable condition. Anesthesia: conscious sedation Surgeon / Physician: Francisco Javier Yan Estimated blood loss: none Specimens: other (Bronchial washings for cultures) Condition: stable Disposition: ICU (Actually ccu) Results - Labs CBC & BMP: 08/30/16 04:02 08/29/16 22:40 Discharge Plan - Discharge Medications No Action Pentoxifylline [TRENtal] 400 mg PO BID Pantoprazole Tab [Protonix Tab] 40 mg PO BID Aspirin [Ecotrin] 81 mg PO DAILY Calcium Acetate [Phoslo] 2 tablet PO TID W/MEALS Calcitriol 0.5 mcg PO DAILY Hydrocodone/Acetaminophen [Hydrocodon-Acetaminoph 7.5-325] 1 each PO TID PRN PRN Reason: Pain Levothyroxine Tab [Synthroid Tab] 137 mcg PO DAILY Pravastatin [Pravachol] 40 mg PO BEDTIME Docusate Sodium Cap [Colace Cap] 100 mg PO DAILY PRN PRN Reason: Constipation Ondansetron Tab [Zofran Tab] 4 mg PO DAILY PRN PRN Reason: Nausea ALPRAZolam [Xanax] 0.125 mg PO BID PRN PRN Reason: Anxiety - Follow Up or Referral - Forms/Instructions
--- NOTE | 2016-08-30 08:13 | XRay Report ---
Exam: XR chest 1V portable Indication: Chest pain Shortness of breath Comparison study: None Findings: Endotracheal tube again terminates very near the right mainstem bronchus approximately 1 cm from the chuck and should be repositioned 2 cm proximally. Esophagogastric tube is in position and travels below the [id number]. Extensive right lung parenchymal opacities have increased from prior and are concerning for multifocal infectious/inflammatory infiltrates. Left lung is predominantly clear. There is no pneumothorax. Trace bilateral pleural effusions are noted. Impression: Similar positioning of the endotracheal tube near the chuck/right mainstem bronchus and repositioning approximately 2 cm is recommended. Worsening of right lung parenchymal opacities suggesting multifocal infectious/inflammatory infiltrates. Esophagogastric tube in place but travels below the [id number]. PROCEDURE INTERPRETED AT [facility], [place] DEPARTMENT OF RADIOLOGY Final Report Signed by: Davis Palma
--- NOTE | 2016-08-30 08:26 | Cardiology Progress Note ---
Assessment and Plan (1) DC, acute, non ST segment elevation Status: Acute Assessment and plan: Her troponin CPKs are elevated but minimally so. This would appear to be a small infarction. We await her echocardiogram. We will continue to monitor her enzymes. Current Visit: Yes (2) Elevated troponin Status: Acute Assessment and plan: Her findings with this indicated that she had had a microinfarction 12-24 hours prior to admission. Current Visit: Yes (3) Peripheral vascular disease Status: Chronic Assessment and plan: This is clinically stable. Current Visit: No (4) PAF (paroxysmal atrial fibrillation) Status: Chronic Current Visit: No (5) Bilateral carotid artery disease Status: Chronic Current Visit: No (6) End stage renal disease on dialysis Status: Chronic Assessment and plan: On peritoneal dialysis. Dr. Lara has been consulted to manage this. Current Visit: Yes (7) Anemia Status: Chronic Assessment and plan: There is a chronic issue probably related to some degree that of chronic disease. Current Visit: Yes Cardiology - PN: Subj Interval history: Since last night the patient has been on the ventilator is waking up is responsive. She is on low-dose propofol. She remains on IV amiodarone. She is also on low-dose dopamine that we will try to wean. Her right chest along her chest x-ray reveals increasing parenchymal opacities. She is under gone bronchoscopy because of some hemoptysis as well as the abnormal chest x-ray and possible aspiration. Based on the report her left lung was clear and she was found to have primarily blood in the right lung. This was irrigated. This may represent some bleeding secondary to her CPR and trauma. No gross evidence of secretions and mucous plugs. The patient's ECG this morning is really unchanged. Also peak troponin is a 31.5 and CPK of 319. Lipid profile is unremarkable and stable. CBC with elevated white count and hematocrit been fairly stable. She does have a history of chronic anemia. There is no family available this morning to talk to. In fact nursing staff is already trying to call some family to get consent for bronchoscopy. We await her echocardiogram from today. She is still in guarded condition but generally stable. Exam (Progress Note) - Constitutional Vitals: Period Temp Pulse Resp BP Sys/Sky Pulse Ox Last 24 Hr 98.6 F-99.1 F 66-171 12-38 90-202/42-107 74-100 Exam: General appearance: normal weight, intubated on propofol. She does rales up tries to respond some. HEENT exam: Orally intubated with NG tube. Neck exam: normal inspection no JVD. No carotid bruit. Trachea is in midline Respiratory/lungs exam: clear to auscultation anteriorly and bilaterally good air movement. Cardiovascular exam: regular rate and rhythm 1/6 systolic murmur Chest wall exam: nontender GI/Abdominal exam: Bowel sounds are present, soft. Extremeties/musculoskeletal: normal inspection without edema or cyanosis. Neurological exam: Patient on propofol but does rales stimulation trials respond to verbal discussion. Psychiatric exam: Patient does not appear to be agitated. She is on propofol. Skin exam: normal color, warm Result/EKG - Labs CBC & BMP: 08/30/16 04:02 08/29/16 22:40 Lab Results: I have reviewed the past 24 hour labs Labs: Laboratory Results - last 24 hr 08/29/16 08/29/16 08/29/16 15:58 15:58 18:25 WBC 16.1 H RBC 3.02 L Hgb 10.0 L Hct 28.8 L MCV 95.4 MCH 33 MCHC 34.7 RDW 14.4 Plt Count 264 MPV 11.7 Neut % (Auto) 69.3 Lymph % (Auto) 20.2 L [place] % (Auto) 8.0 Eos % (Auto) 0.7 Baso % (Auto) 0.4 Neut # (Auto) 11.1 H Lymph # (Auto) 3.2 [place] # (Auto) 1.3 H Eos # (Auto) 0.1 Baso # (Auto) 0.1 Total Counted Immature Gran % 1.4 Nucleated RBC % 0.0 Immature Gran # 0.22 Segmented Neutrophils Band Neutrophils Lymphocytes Monocytes Nucleated RBCs # 0.00 Platelet Estimate Hypochromasia Anisocytosis ABG pH ABG pCO2 ABG pO2 ABG HCO3 ABG Total CO2 ABG O2 Saturation ABG Base Excess FiO2 Sodium 136 Potassium 3.3 L Chloride 95 L Carbon Dioxide 32 Anion Gap 12.3 BUN 33 H Creatinine 7.40 H GFR Calculation 5 BUN/Creatinine Ratio 4.00 L Glucose 92 Calculated Osmolality 278.0 Calcium 9.6 Magnesium Total Bilirubin < 0.39 AST 116 H ALT 23 Alkaline Phosphatase 77 Total Creatine Kinase 211 H CK-MB (CK-2) 16.5 H CK and CKMB Interp 7.8 Troponin I 28.900 H Total Protein 5.5 L Albumin 1.8 L Globulin 3.7 H Albumin/Globulin Ratio 0.4 L Triglycerides Cholesterol LDL Cholesterol VLDL Cholesterol HDL Cholesterol Heart Disease Risk Ratio Hep Bs Antigen Hepatitis C Antibody HIV 1&2 Antigen & Ab 08/29/16 08/29/16 08/29/16 22:40 22:40 22:40 WBC RBC Hgb Hct MCV MCH MCHC RDW Plt Count MPV Neut % (Auto) Lymph % (Auto) [place] % (Auto) Eos % (Auto) Baso % (Auto) Neut # (Auto) Lymph # (Auto) [place] # (Auto) Eos # (Auto) Baso # (Auto) Total Counted Immature Gran % Nucleated RBC % Immature Gran # Segmented Neutrophils Band Neutrophils Lymphocytes Monocytes Nucleated RBCs # Platelet Estimate Hypochromasia Anisocytosis ABG pH ABG pCO2 ABG pO2 ABG HCO3 ABG Total CO2 ABG O2 Saturation ABG Base Excess FiO2 Sodium 134 L Potassium 3.3 L Chloride 95 L Carbon Dioxide 24 Anion Gap 18.3 H BUN 35 H Creatinine 7.30 H GFR Calculation 5 BUN/Creatinine Ratio 4.00 L Glucose 126 H Calculated Osmolality 277.2 Calcium 9.1 Magnesium 2.2 Total Bilirubin < 0.39 AST 152 H ALT 40 Alkaline Phosphatase 93 Total Creatine Kinase 218 H CK-MB (CK-2) 13.8 H CK and CKMB Interp 6.3 Troponin I 28.300 H Total Protein 5.6 L Albumin 1.8 L Globulin 3.8 H Albumin/Globulin Ratio 0.4 L Triglycerides Cholesterol LDL Cholesterol VLDL Cholesterol HDL Cholesterol Heart Disease Risk Ratio Hep Bs Antigen Hepatitis C Antibody HIV 1&2 Antigen & Ab 08/29/16 08/30/16 08/30/16 23:04 02:40 03:58 WBC RBC Hgb Hct MCV MCH MCHC RDW Plt Count MPV Neut % (Auto) Lymph % (Auto) [place] % (Auto) Eos % (Auto) Baso % (Auto) Neut # (Auto) Lymph # (Auto) [place] # (Auto) Eos # (Auto) Baso # (Auto) Total Counted Immature Gran % Nucleated RBC % Immature Gran # Segmented Neutrophils Band Neutrophils Lymphocytes Monocytes Nucleated RBCs # Platelet Estimate Hypochromasia Anisocytosis ABG pH 7.343 L 7.431 ABG pCO2 42.8 37.8 ABG pO2 152.0 H 69.1 L ABG HCO3 22.4 25.2 ABG Total CO2 21.3 L 22.8 L ABG O2 Saturation 99.0 94.1 L ABG Base Excess -2.4 1.0 FiO2 100.00 70.00 Sodium Potassium Chloride Carbon Dioxide Anion Gap BUN Creatinine GFR Calculation BUN/Creatinine Ratio Glucose Calculated Osmolality Calcium Magnesium Total Bilirubin AST ALT Alkaline Phosphatase Total Creatine Kinase CK-MB (CK-2) CK and CKMB Interp Troponin I Total Protein Albumin Globulin Albumin/Globulin Ratio Triglycerides Cholesterol LDL Cholesterol VLDL Cholesterol HDL Cholesterol Heart Disease Risk Ratio Hep Bs Antigen Negative Hepatitis C Antibody Negative HIV 1&2 Antigen & Ab Nonreactive 08/30/16 08/30/16 08/30/16 04:02 04:02 04:02 WBC 28.2 H D RBC 3.16 L Hgb 10.5 L Hct 30.2 L MCV 95.6 MCH 33 MCHC 34.8 RDW 14.3 Plt Count 248 MPV 12.1 H Neut % (Auto) 82.3 H Lymph % (Auto) 9.0 L [place] % (Auto) 6.3 Eos % (Auto) 0.2 Baso % (Auto) 0.4 Neut # (Auto) 23.2 H Lymph # (Auto) 2.6 [place] # (Auto) 1.8 H Eos # (Auto) 0.1 Baso # (Auto) 0.1 Total Counted 100 Immature Gran % 1.8 Nucleated RBC % 0.0 Immature Gran # 0.52 Segmented Neutrophils 84 Band Neutrophils 2 Lymphocytes 12 L Monocytes 2 Nucleated RBCs # 0.00 Platelet Estimate Normal Hypochromasia 1+ Anisocytosis 1+ ABG pH ABG pCO2 ABG pO2 ABG HCO3 ABG Total CO2 ABG O2 Saturation ABG Base Excess FiO2 Sodium Potassium Chloride Carbon Dioxide Anion Gap BUN Creatinine GFR Calculation BUN/Creatinine Ratio Glucose Calculated Osmolality Calcium Magnesium Total Bilirubin AST ALT Alkaline Phosphatase Total Creatine Kinase 319 H D CK-MB (CK-2) 22.3 H D CK and CKMB Interp 7.0 Troponin I 31.500 H Total Protein Albumin Globulin Albumin/Globulin Ratio Triglycerides 96 Cholesterol 112 LDL Cholesterol 47.0 VLDL Cholesterol 19.2 HDL Cholesterol 56 Heart Disease Risk Ratio 2.00 Hep Bs Antigen Hepatitis C Antibody HIV 1&2 Antigen & Ab - Impressions Impressions: ECG today is sinus rhythm and unchanged. Quality Measures - VTE Contraindication to Pharmacological VTE Prophylaxis: High Risk of Bleeding
[2016-08-30 08:45] LABS: ABG HCO3 24.3 MMOL/L (20-26); ABG Oxygen Saturation 89.1 % (95-100); ABG PCO2 39.8 MM HG (35-48); ABG PO2 58.1 MM HG (80-95); ABG TCO2 22.5 MMOL/L (23-27)
[2016-08-30] MEDS: CLINDAMYCIN INJ 600 MG in PREMIX 1 EACH IV SCH ×2 (08:48→15:51)
[2016-08-30] MEDS: CALCIUM ACETATE 667 MG CAPSULE PO SCH ×3 (08:49→18:11)
[2016-08-30] MEDS: CALCITRIOL 0.5 MCG CAPSULE PO SCH (08:50)
[2016-08-30] MEDS: PENTOXIFYLLINE 400 MG TABLET PO SCH ×2 (08:50→21:58)
[2016-08-30] MEDS: ASPIRIN EC 81 MG TABLET PO SCH (08:50)
[2016-08-30] MEDS: METOPROLOL TARTRATE 50 MG TABLET PO SCH ×2 (08:50→21:58)
[2016-08-30] MEDS: CLOPIDOGREL 75 MG TABLET PO SCH (08:50)
[2016-08-30] MEDS: LEVOTHYROXINE 137 MCG TABLET PO SCH (08:50)
[2016-08-30] MEDS: DOCUSATE SODIUM 100 MG CAPSULE PO SCH ×2 (08:51→21:58)
[2016-08-30] MEDS: PANTOPRAZOLE 40 MG TABLET PO SCH ×2 (08:52→21:58)
[2016-08-30] MEDS: PROPOFOL 1,000 MG/100 ML BOTTLE IV SCH (08:57)
[2016-08-30] MEDS ORDERED: PANTOPRAZOLE 40 MG TABLET PO SCH (09:00)
[2016-08-30] MEDS: CEFEPIME 500 MG in SODIUM CHLORIDE 0.9% 100 ML IV SCH (09:48)
[2016-08-30 14:00] LABS: CKMB % 3.1 %
[2016-08-30 14:02] LABS: Troponin I Only 33.8 NG/ML (0.00-0.045)
--- NOTE | 2016-08-30 18:34 | Internal Med Progress Note ---
Assessment and Plan (1) Acute PA Status: Acute Current Visit: Yes Qualifiers: Myocardial infarction ST status: non-ST elevation myocardial infarction Qualified Code(s): I21.4 - Non-ST elevation (NSTEMI) myocardial infarction (2) Acute respiratory failure Status: Acute Current Visit: Yes (3) Aspiration into airway Status: Acute Current Visit: Yes (4) Generalized weakness Problem details: acutely worsened Status: Chronic Current Visit: Yes (5) Anemia Status: Chronic Current Visit: Yes Qualifiers: Chronic kidney disease stage: on chronic dialysis (6) ESRD on peritoneal dialysis Status: Chronic Current Visit: Yes (7) Atherosclerotic cardiovascular disease Status: Chronic Current Visit: Yes Internal Medicine - PN: Subj Interval history: This is a 81 year old female with history of ESRD on peritoneal dialysis, HTN, atherosclerotic disease, dyslipidemia, history PA, OA with chronic back pain and mobility issues, who presented to ER with acute PA and underwent emergent cardiac catheterization. CAD with largely occluded RCA and obtuse marginal branch and stent couldn't be placed. She is not a candidate for CABG because of significant comorbidities. She went into V fib post cath and is now in CCU on ventilator support and pressor support. Family at bedside on rounds today. Daughter reports that patient had worsening fatigue over last 2-3 days, and fatigue had been developing over the last month. She had chest pain in ER, but had not complained of pain at home. She was fatigued in recent outpatient dialysis and was given fluid for low normotensive blood pressure noted at the time. Chest x-ray shows right lung extensive infiltrate and she is being treated for aspiration. Dr. Yan following and covering her with Cefepime. She will undergo peritoneal dialysis in the morning. Discussed case with Dr. Lara. Exam (Progress Note) - Constitutional Vitals: Period Temp Pulse Resp BP Sys/Sky Pulse Ox Last 24 Hr 96.6 F-98.9 F 55-171 12-77 87-202/38-107 74-100 General appearance: other (sedated on vent) - Head Head exam: Present: normocephalic - Respiratory Respiratory exam: Present: clear to auscultation bilaterally. Absent: rhonchi, wheezes - Cardiovascular Cardiovascular exam: Present: regular rate and rhythm - GI/Abdominal GI/Abdominal exam: Present: soft - Extremities Exam Extremities exam: Absent: edema - Neurological Exam Neurological exam: Present: other (sedated) - Skin Skin exam: Present: warm, dry, pallor Results - Labs CBC & BMP: 08/31/16 03:07 08/31/16 03:07 - EKG EKG shows: sinus rhythm (monitor strips) - Diagnostic Findings Procedure: Chest x-ray: report reviewed by me, image reviewed by me (right lung infiltrate/inflammation) Quality Measures - VTE Contraindication to Pharmacological VTE Prophylaxis: High Risk of Bleeding
[2016-08-30] MEDS: PRAVASTATIN 40 MG TABLET PO SCH (21:58)
--- NOTE | 2016-08-30 22:04 | Nephrology Consult Note ---
History of Present Illness Chief complaint: ESRD History of present illness: Ms. Fam is a 81 year old female with ESRD who is well known. She is on peritoneal dialysis. She reported generalized weakness the day prior to admission. He was seen at the peritoneal dialysis unit and was given IV fluid. Blood pressure medication was decreased. She reports shortness of breath or chest pain at that time. She came to the emergency room the following morning with generalized weakness and shortness of breath. She later developed chest pain. Troponin was slightly elevated. She was taken to the [facility]. Please see cath report. She initially tolerated this fairly well but developed ventricular fibrillation and required cardioversion and intubation. She has required pressor support. Home Medications Medication Instructions Recorded Confirmed Type Pantoprazole Tab [Protonix Tab] 40 mg PO BID 07/15/14 08/29/16 History Pentoxifylline [TRENtal] 400 mg PO BID 07/15/14 08/29/16 History Aspirin [Ecotrin] 81 mg PO DAILY 12/28/14 08/29/16 History Calcium Acetate [Phoslo] 2 tablet PO TID W/MEALS 05/25/15 08/29/16 History Calcitriol 0.5 mcg PO DAILY 01/11/16 08/29/16 History Hydrocodone/Acetaminophen 1 each PO TID PRN 07/09/16 08/29/16 History [Hydrocodon-Acetaminoph 7.5-325] ALPRAZolam [Xanax] 0.125 mg PO BID PRN 08/17/16 08/29/16 History Docusate Sodium Cap [Colace Cap] 100 mg PO DAILY PRN 08/17/16 08/29/16 History Levothyroxine Tab [Synthroid Tab] 137 mcg PO DAILY 08/17/16 08/29/16 History Ondansetron Tab [Zofran Tab] 4 mg PO DAILY PRN 08/17/16 08/29/16 History Pravastatin [Pravachol] 40 mg PO BEDTIME 08/29/16 08/29/16 History Allergies Allergy/AdvReac Type Severity Reaction Status Date / Time Neuromuscular Blockers, Allergy Intermediate SHORTNESS Verified 08/09/16 15:14 Steroidal OF BREATH regadenoson Allergy Mild Cough Verified 08/09/16 15:14 Sulfa (Sulfonamide Allergy Mild RASH Verified 08/09/16 15:14 Antibiotics) enalaprilat [From Vasotec] AdvReac Mild SHORTNESS Verified 08/09/16 15:14 OF BREATH Penicillins AdvReac Mild ITCHING Verified 08/09/16 15:14 Medical,Surgical,& Family Hx - Medical History Cardio: History of: Cardiac Dysrhythmia (PAROXYSMAL ATRIAL FIB), CHF, Hypertension, PVD, Valvular Heart Disease (mitral valve regurgitation), Cardiovascular Problems (PVD DR THAPA IN PAST CURRENT DR KING LAST VISIT 2016.) No history of: Aneurysm, Cerebrovascular Disease, Congenital Heart Disease, CAD, ID, Pacemaker Psychological: History of: Anxiety Disorders, Behavior Problems, Bipolar Disorder, Depression No history of: ADHD, Previous Suicide Attempt, Psychiatric/Substance Abuse Tx , Schizophrenia, Violent Behavior, Psychiatric Problems Neurology: History of: Cerebral Palsy, Peripheral Neuropathy No history of: Brain Aneurysm, Cerebral Hemorrhage, Cerebrovascular Accident , Dementia, Migraine, Multiple Sclerosis, Parkinson's Disease, Seizures, TIA, Vertigo, Neurologocal Cancer HEENT: History of: Ear Problem (GLASSES CATARACTS), Dental Problems (upper and lower dentures) No history of: Eye Problem, Glaucoma, Oral Cancer, HEENT Problems Endocrine: History of: Dyslipidemia, Thyroid Disorder (s/p thyroid resection due to thyroid CA) No history of: Adrenal Disease, Diabetes Mellitus (IDDM), Diabetes Mellitus ( NIDDM), Endocrine Cancer, Endocrine Problems Rheumatology: History of;: Gout, Rheumatoid Arthritis No history of;: Fibromyalgia, Myasthenia Gravis, Systemic Lupus Erythematosus , Rheumatological Problems Respiratory: History of: Asthma, Pulmonary Hypertension No history of: Bronchitis, COPD, Intubation, Obstructive Sleep Apnea, Pulmonary Embolism, Pneumonia, Lung Cancer, Respiratory Problems (FLU VAC- YES; PNEU VAC-YES.) Renal: History of: Dialysis (PERITONEAL OVERNIGHT [address] KAPADIA [address] HAMPTON.), Renal Failure No history of: Renal (Kidney) Cancer, Renal Problems Genitourinary: History of: Kidney Stones No history of: Bladder Problem, Recurring Urinary Tract Infections, Genitourinary Cancer, Problems Gastrointestinal: History of: GERD, GI Problems (nausea, vomiting, diarrhea started a week ago) No history of: Bowel Obstruction, Clostridium Difficile, Crohn's Disease, Diverticulitis/ Diverticulosis, Esophageal Varices, Gastrointestinal Bleed, Hemorrhoids, Hematochezia, Hepatitis, Liver Problems, Pancreatitis, Polyps, Ulcerative Colitis, Gastrointestinal Cancer Musculoskeletal: History of: Back/Neck Problems (chronic back pain. DR GUTIERREZ.) No history of: Amputation, Degenerative Disk Disease, Herniated Disk, Osteoporosis, Musculoskeletal Cancer, Musculoskeletal Problems Hematology: History of: Anemia (CHRONIC), Bleeding Problems No history of: Blood Transfusion Reaction, Clotting Problems, Sickle Cell Disease, Hematologic Cancer, Blood Disorders Reproductive: History of: Ovarian Cysts, Complication No history of: Abnormal Pap Smear, Breast Cancer, Endometriosis, Ectopic , Sexually Transmitted Disorders, Reproductive Cancer Other: History of: Anesthesia Reactions (PT STATES SHE DOES NOT WANT TO WAKE UP AFTER SURGERY.), Cancer, Skin Problems (CANCER) No history of: Anaphylaxis, Eczema, HIV, Malignant Hyperthermia, MRSA, Vancomycin-Resistant Enterococci, Miscellaneous Medical Problems - Surgical History Cardiac Surgeries: Sugical HX of: Femoral-Popliteal Bypass Graft (RIGHT SIDE IN [place]. RAISA), Cardiac Catheterization Patient Denies: Cardiac Surgery, Carotid Endarterectomy, Internal Defibrillator, Vascular Access Devices Thoracic Surgeries: Patient denies;: Kidney (Renal Surgery), Lithotripsy, Nephrectomy, Organ Transplant, Lobectomy Neurologic Surgeries: Patient denies: Brain Aneurysm, Cerebral Hemorrhage, Neurologic Surgery HEENT Surgeries: Surgical HX of: Eye Surgery (REMOVAL CATARACTS), Thyroid Surgery, Tonsilectomy & Adenoidectomy Patient denies: Carotid Endarterectomy Abdominal Surgeries: Surgical HX of: Appendectomy, Cholecystectomy, Colonoscopy , EGD, Hernia Repair Patient denies: Abdominal Surgery, Gastric Bypass Surgery, Splenectomy Reproductive Surgeries: Surgical HX of;: Section (X2), Gynecologic Surgery (hysterectomy), Hysterectomy Patient denies;: Breast Surgery, Cystoscopy, Dilation and Curettage, Genitourinary Surgery, Tubal Ligation Orthopedic Surgeries: Patient denies;: Implanted Devices, Orthopedic Surgery, Spinal Surgery, Total Hip Replacement, Total Knee Replacement - Family History Family History: Reports;: Family Cancer (sisters and a brother with lung cancer) , Family Diabetes (DAD), Family Hypertension (PARENTS), Family Stroke Denies;: Family Anesthesia Reaction, Family Heart Disease, Family Psychiatric Problems - Social History Smoking Status: Smoker, status unknown Frequency of Alcohol Use: None Type of Drug Use: None Review of Systems ROS unobtainable: due to endotracheal tube Exam - Vital Signs Vital signs: Period Temp Pulse Resp BP Sys/Sky Pulse Ox Last 24 Hr 96.6 F-98.6 F 55-171 12-77 87-202/38-107 74-100 Exam: Gen.: Sedated better ENT: Pupils equal round reactive to light. Neck: Supple. No JVD or bruit. Cardiovascular: Regular rate and rhythm. No murmur rub or gallop Lungs: Clear Abdomen: Soft. Nontender. Positive bowel sounds. No organomegaly Extremities: Trace edema Results - Labs CBC & BMP: 08/30/16 04:02 08/29/16 22:40 Assessment and Plan (1) End stage renal disease on dialysis Status: Chronic Assessment and plan: 81-year-old woman admitted with: * Acute ID. Status post cardiac cath. Complicated by ventricular fibrillation and ventilatory failure. * Hypotension * ESRD. Volume status is accceptable. She has not hyperkalemic. Peritoneal dialysis will be held today * Paroxysmal A. fib * Peripheral vascular disease Current Visit: Yes (2) Acute respiratory failure Status: Acute Current Visit: Yes (3) ID, acute, non ST segment elevation Status: Acute Current Visit: Yes (4) Ventricular fibrillation Status: Acute Current Visit: Yes (5) Anemia Status: Chronic Current Visit: Yes (6) Hypertension Status: Chronic Current Visit: No Qualifiers: Hypertension type: essential hypertension Qualified Code(s): I10 - Essential (primary) hypertension (7) Hypothyroidism (acquired) Status: Chronic Current Visit: No (8) PAF (paroxysmal atrial fibrillation) Status: Chronic Current Visit: No (9) Peripheral vascular disease Status: Chronic Current Visit: No
[2016-08-31] MEDS: DOPamine 800 MG/250 ML PREMIX IV SCH ×3 (00:31→19:00)
[2016-08-31] MEDS: CEFEPIME 500 MG in SODIUM CHLORIDE 0.9% 100 ML IV SCH ×3 (00:31→21:55)
[2016-08-31] MEDS: SODIUM CHLORIDE 0.9% 1,000 ML IV SCH ×2 (00:31→11:01)
[2016-08-31] MEDS: PROPOFOL 1,000 MG/100 ML BOTTLE IV SCH ×2 (00:31→06:35)
[2016-08-31] MEDS: CLINDAMYCIN INJ 600 MG in PREMIX 1 EACH IV SCH ×3 (00:40→15:35)
[2016-08-31 03:24] LABS: ABG Base Excess -0.3 MMOL/L (-2.5-2.5); ABG HCO3 24.2 MMOL/L (20-26); ABG Oxygen Saturation 97.5 % (95-100); ABG PCO2 33.8 MM HG (35-48); ABG PH 7.444 (7.35-7.45); ABG TCO2 20.6 MMOL/L (23-27); Allen Test Positive; Pt O2 Delivery Device Ventilator
[2016-08-31 04:21] LABS: Basophils # 0.1 10*3/uL (0.0-0.2); Basophils % 0.2 % (0.0-0.8); Hematocrit 28.2 VOL% (35.7-47.0); Hemoglobin 9.9 GM/DL (12.0-16.0); Immature Granulocytes % 1.3 %; Immature Granulocytes Absolute 0.44 #; Lymphocytes # 1.8 10*3/uL (1.4-4.0); Lymphocytes % 5.4 % (21.3-54.2); Mean Corpuscular HGB Conc 35.1 GM/DL (32-36); Mean Corpuscular Hemoglobin 33 PG (27-34); Mean Platelet Volume 12.5 FL (9.6-12.0); Monocytes # 1.6 10*3/uL (0.11-0.8); Monocytes % 4.7 % (1.7-12.7); NRBC # 0.02 10*3/uL; Neutrophils # 29.1 10*3/uL (1.4-7.4); Neutrophils % 88.4 % (38.7-73.9); Platelet Count 247 T/CUMM (130-400); Red Cell Distribution Width 14.5 % (9.3-17.3)
[2016-08-31 04:47] LABS: Calcium 8.7 MG/DL (8.5-10.1); Magnesium 1.9 MG/DL (1.8-2.4); Osmolality,Calculated 270.8 MOS/KG (273-304); Potassium 3.8 MMOL/L (3.5-5.1)
[2016-08-31 05:32] LABS: Band Neutrophils 9 % (0-10); Lymphocytes 5 % (20-55); Segmented Neutrophils 84 % (50-85); Total Cells Counted 100
[2016-08-31 05:33] LABS: Burr Cells Slight; Microcytosis Slight
[2016-08-31 06:52] LABS: CKMB % 2.3 %
[2016-08-31 06:54] LABS: Troponin I Only 33.3 NG/ML (0.00-0.045)
--- NOTE | 2016-08-31 07:08 | Pulmonology Progress Note ---
Pulmonary - PN: Subj Interval history: This 81-year-old white female has end-stage renal disease on peritoneal dialysis. She came in with weakness and shortness of breath and developed chest pain. She has had a myocardial infarction. Cardiac catheterization revealed right coronary disease but they were not able to intervene. Patient had a cardiac arrest with ventricular fibrillation later that day. She is now on the ventilator. She has a fairly extensive right-sided lung infiltrate. I bronchoscoped her yesterday and clean out some secretions. Gram stains show gram-positive cocci. Cultures pending. She is covered with antibiotics. On Cleocin and cefepime. ABGs are a little better. Will reduce FiO2 and PEEP and see if we can start CPAP today. Peritoneal dialysis has been held for a couple of days. Defer to nephrology. Exam (Progress Note) - Constitutional Vitals: Period Temp Pulse Resp BP Sys/Syk Pulse Ox Last 24 Hr 96.6 F-97.9 F 55-87 11-77 63-145/38-69 91-100 Exam: Patient sedated but arousable. Moves all 4 extremities. Afebrile. Pupils react to light. Orotracheal tube in place. Neck supple no bruits. Chest shows some rhonchi on the right side. Left lung is clear. Heart normal rate and rhythm no murmurs. Abdomen is soft nontender. Bowel sounds present. Extremities no clubbing cyanosis edema. Calves nontender. Results - Labs CBC & BMP: 08/31/16 03:07 08/31/16 03:07 Lab Results: I have reviewed the past 24 hour labs - Diagnostic Findings Procedure: Chest x-ray: image reviewed by me (Infiltrate in right lung slightly better than yesterday but fairly extensive.) Assessment and Plan (1) Ventricular fibrillation Status: Acute Assessment and plan: She had episode of ventricular fibrillation requiring defibrillation as well as intubation last night. Presently on ventilator and hypoxemic. I suspect that she had an aspiration event. 08/31/2016 does not appear to have any significant brain injury from the arrest. Normal rhythm now. Current Visit: Yes (2) Acute respiratory failure Status: Acute Assessment and plan: Hypoxemia requiring high levels of FiO2. Will increase PEEP hopefully she will tolerate that. Wean as ABGs allow. Mental status appears to be good. 08/31/2016 aspiration pneumonia right lung. Continuing mechanical ventilatory support and antibiotics. Wean when ABGs allow. Current Visit: Yes (3) Aspiration into airway Status: Acute Assessment and plan: This is suspected based on her abnormal chest x-ray post code. pulmonary edema in an atypical fashion may give us this x-ray as well. Will cover empirically with antibiotics. 08/31/2016 clean her out yesterday with a bronchoscope. Did not see any foreign bodies. Has a right-sided pneumonia secondary to aspiration. Current Visit: Yes (4) Congestive heart failure Status: Resolved Assessment and plan: Needs to resume dialysis. Defer to cardiology and nephrology. LVEDP was 20 at cath yesterday 08/31/2016 cardiology and nephrology will get therapy here. She did have an elevated LVEDP at catheterization. I do think she would be better off if she were dialyzed. Current Visit: No Qualifiers: Congestive heart failure type: unspecified congestive heart failure type Congestive heart failure chronicity: acute on chronic Qualified Code(s): I50.9 - Heart failure, unspecified (5) ESRD on peritoneal dialysis Status: Chronic Assessment and plan: Dr. Lara to see to resume dialysis. Current Visit: Yes (6) STEMI (ST elevation myocardial infarction) Status: Acute Assessment and plan: Certainly has enzyme evidence of acute myocardial infarction. Likely the cause of her ventricular fibrillation as well. 08/31/2016 cardiac enzymes confirm myocardial infarction. Current Visit: Yes
--- NOTE | 2016-08-31 08:09 | ECHO Report ---
Soumya Fam Exam Date: 08/30/2016 08:59 Referring Physician: Technologist: Kristie Gutierrez Age: 81 Ht (in): 65 Wt (lb): 154 Gender: F Exam Location: [facility] Echo Indications: AMI, acute resp. failure, fever, elevated troponin, V fib, PT. on vent. BP: 116 / 71 HR: 81 Rhythm: Sinus Technical Quality: Technically difficult study IMPRESSIONS 1. This is a technically difficult limited study. 2. The left ventricle is normal size and systolic function without specific segmental wall motion maladies noted. The ejection fraction is preserved at least 55-60%. 3. Left atrium at worst may be mildly enlarged as seen from the apical view. 4. Right-sided chambers are normal size. 5. Mitral valve is mildly sclerotic with mild possibly moderate regurgitation. 6. Aortic valve is sclerotic but with good motion and mild regurgitation. 7. Tricuspid and pulmonic valves or overall unremarkable. 8. No significantly elevated right-sided pressures MEASUREMENTS (Male / Female) Normal Values 2D ECHO LV Diastolic Diameter PLAX 3.1 cm 4.2 - 5.9 / 3.9 - 5.3 cm LV Systolic Diameter PLAX 2.0 cm LV Fractional Shortening PLAX 33.7 % IVS Diastolic Thickness 1.9 cm 0.6 - 1.0 / 0.6 - 0.9 cm LVPW Diastolic Thickness 1.5 cm 0.6 - 1.0 / 0.6 - 0.9 cm Aortic Root Diameter 3.0 cm LA Systolic Diameter LX 3.5 cm 3.0 - 4.0 / 2.7 - 3.8 cm DOPPLER TR Peak Velocity 268.0 cm/s TR Peak Gradient 28.7 mmHg FINDINGS Left Ventricle Normal left ventricular cavity size. Mild - moderate concentric left ventricular hypertrophy. Left ventricular ejection fraction is estimated at 55-60%. Right Ventricle Normal right ventricular size. Right Atrium Normal right atrial size. Left Atrium The left atrium may be mildly enlarged from apical view. Mitral Valve Mild - moderate mitral valve sclerosis. Mild-moderate mitral valve regurgitation. Aortic Valve Mild aortic valve sclerosis without stenosis. Mild aortic valve regurgitation. Tricuspid Valve Morphologically normal tricuspid valve. Trace tricuspid valve regurgitation. Tricuspid regurgitation velocities suggest a PAP of 34- 39 mmHg. Pulmonic Valve Morphologically normal pulmonic valve. Trace - mild pulmonary valve regurgitation. Pericardium Small pericardial effusion, possible pericardial fat. Aorta Normal size aortic root and proximal ascending aorta. Georges Galaviz MD (Electronically Signed) Final Date: 31 August 2016 08:08
--- NOTE | 2016-08-31 08:33 | XRay Report ---
Exam: XR chest 1V portable Indication: Intubated, ventilator Comparison study: 08/30/2016 Findings: Endotracheal tube has been slightly retracted and now terminates approximately 3 cm from the chuck and more optimal positioning. Esophagogastric tube is in similar position. Left lung remains predominantly clear. There is no pneumothorax. Right lung multifocal airspace opacities are similar to slightly improved from prior. Impression: Multifocal airspace opacities within the right lung appear similar to slightly improved from prior. Endotracheal tube now terminates 3 cm from the chuck, improved position. Stable position of esophagogastric tube. PROCEDURE INTERPRETED AT [facility] DEPARTMENT OF RADIOLOGY Final Report Signed by: Davis Palma
--- NOTE | 2016-08-31 08:35 | Cardiology Progress Note ---
Assessment and Plan (1) OH, acute, non ST segment elevation Status: Acute Assessment and plan: Her troponins remain elevated but are flat. PK is peaked at 1477 and trending down. Some of the CPT elevation may indeed though be from her microinfarction or as well as from CPR. We will monitor her rhythm continuously in the CCU. Current Visit: Yes (2) Elevated troponin Status: Acute Assessment and plan: Her troponin is been flat since admission ranging from approximately 28.9 to a peak of 33.8. Her CPK is increased and has already peaked and is now trending down. Some of his CPK again may be secondary to her CPR. Current Visit: Yes (3) Peripheral vascular disease Status: Chronic Assessment and plan: This is clinically stable. Current Visit: No (4) PAF (paroxysmal atrial fibrillation) Status: Chronic Current Visit: No (5) Bilateral carotid artery disease Status: Chronic Current Visit: No (6) End stage renal disease on dialysis Status: Chronic Assessment and plan: Dr. Lara is following apparently planning on peritoneal dialysis today. Current Visit: Yes (7) Anemia Status: Chronic Assessment and plan: There is a chronic issue probably related to some degree that of chronic disease. Current Visit: Yes Qualifiers: Chronic kidney disease stage: on chronic dialysis Cardiology - PN: Subj Interval history: Patient had an uneventful 24 hours from a cardiac standpoint. Her blood pressures been stable with slowly able to wean down the dopamine. She has had no further dysrhythmias is remains on IV amiodarone but will be switched to p.o. She remains on the ventilator Dr. Francisco Javier Yan is monitoring this and try to slowly start weaning her. Her chest x-ray continues to have abnormality with an infiltrate. Apparently she had a few gram-positive cocci on her bronchial washings from yesterday. She is covered by antibiotics at this time. Dr. Reymundo Lara is following her for her renal function and will plan according the chart peritoneal dialysis today. Today overall the plan will be to switch her to p.o. amiodarone and start her on some of her other medications. Her NG tube. We will switch her pantoprazole to IV since cannot be crushed. Her troponins have been flat around 31-33 with her CPKs peaking at 1477 which may have been from cardiac as well as possible from her CPR. I had discussed this patient's case with her family late yesterday afternoon. Exam (Progress Note) - Constitutional Vitals: Period Temp Pulse Resp BP Sys/Sky Pulse Ox Last 24 Hr 96.6 F-97.9 F 55-87 11-77 63-145/38-69 91-100 Exam: General appearance: normal weight, intubated on propofol. She does open her eyes up to stimuli. HEENT exam: Orally intubated with NG tube. Neck exam: normal inspection no JVD. No carotid bruit. Trachea is in midline Respiratory/lungs exam: clear to auscultation anteriorly and bilaterally good air movement. Cardiovascular exam: regular rate and rhythm, no murmur noted today but some this may be that she is on her right side some. Chest wall exam: No gross deformity, she does grimace a little bit with palpation. GI/Abdominal exam: Bowel sounds are present, soft. Extremeties/musculoskeletal: normal inspection without edema or cyanosis. Neurological exam: Patient on propofol but does respond to palpation of the chest as well as open her eyes when spoken to.. Psychiatric exam: Patient is not agitated. She is on propofol. Skin exam: normal color, warm Result/EKG - Labs CBC & BMP: 08/31/16 03:07 08/31/16 03:07 Lab Results: I have reviewed the past 24 hour labs (H&H is stable she is chronic anemia, troponin is flat but elevated, CPK is elevated but now descended.) Labs: Laboratory Results - last 24 hr 08/30/16 08/30/16 08/31/16 08:40 13:04 03:05 WBC RBC Hgb Hct MCV MCH MCHC RDW Plt Count MPV Neut % (Auto) Lymph % (Auto) [place] % (Auto) Eos % (Auto) Baso % (Auto) Neut # (Auto) Lymph # (Auto) [place] # (Auto) Eos # (Auto) Baso # (Auto) Total Counted Immature Gran % Nucleated RBC % Immature Gran # Segmented Neutrophils Band Neutrophils Lymphocytes Monocytes Nucleated RBCs # Microcytosis [place] Cells Morphology Comment ABG pH 7.400 7.444 ABG pCO2 39.8 33.8 L ABG pO2 58.1 L 99.0 H ABG HCO3 24.3 24.2 ABG Total CO2 22.5 L 20.6 L ABG O2 Saturation 89.1 L 97.5 ABG Base Excess 0.0 -0.3 FiO2 60.00 Sodium Potassium Chloride Carbon Dioxide Anion Gap BUN Creatinine GFR Calculation BUN/Creatinine Ratio Glucose Calculated Osmolality Calcium Magnesium Total Creatine Kinase 1477 H D CK-MB (CK-2) 46.5 H D CK and CKMB Interp 3.1 Troponin I 33.800 H 08/31/16 08/31/16 08/31/16 03:07 03:07 03:07 WBC 33.0 H RBC 3.00 L Hgb 9.9 L Hct 28.2 L MCV 94.0 MCH 33 MCHC 35.1 RDW 14.5 Plt Count 247 MPV 12.5 H Neut % (Auto) 88.4 H Lymph % (Auto) 5.4 L [place] % (Auto) 4.7 Eos % (Auto) 0.0 Baso % (Auto) 0.2 Neut # (Auto) 29.1 H Lymph # (Auto) 1.8 [place] # (Auto) 1.6 H Eos # (Auto) 0.0 Baso # (Auto) 0.1 Total Counted 100 Immature Gran % 1.3 Nucleated RBC % 0.1 Immature Gran # 0.44 Segmented Neutrophils 84 Band Neutrophils 9 Lymphocytes 5 L Monocytes 2 Nucleated RBCs # 0.02 Microcytosis Slight [place] Cells Slight Morphology Comment ABG pH ABG pCO2 ABG pO2 ABG HCO3 ABG Total CO2 ABG O2 Saturation ABG Base Excess FiO2 Sodium 130 L Potassium 3.8 Chloride 89 L Carbon Dioxide 23 Anion Gap 21.8 H BUN 46 H Creatinine 7.80 H GFR Calculation 5 BUN/Creatinine Ratio 5.00 L Glucose 76 Calculated Osmolality 270.8 L Calcium 8.7 Magnesium 1.9 Total Creatine Kinase 1163 H D CK-MB (CK-2) 26.6 H D CK and CKMB Interp 2.3 Troponin I 33.300 H - Impressions Impressions: Telemetry continues with sinus rhythm. Quality Measures - VTE Contraindication to Pharmacological VTE Prophylaxis: High Risk of Bleeding
--- NOTE | 2016-08-31 08:42 | Cardiology Progress Note ---
Assessment and Plan (1) Ventricular fibrillation Status: Acute Assessment and plan: This is post myocardial infarction. She has been stable on amiodarone. We will plan on switching her to oral today. Current Visit: Yes (2) PR, acute, non ST segment elevation Status: Acute Assessment and plan: Her troponins remain elevated but are flat. PK is peaked at 1477 and trending down. Some of the CPT elevation may indeed though be from her microinfarction or as well as from CPR. We will monitor her rhythm continuously in the CCU. Current Visit: Yes (3) Elevated troponin Status: Acute Assessment and plan: Her troponin is been flat since admission ranging from approximately 28.9 to a peak of 33.8. Her CPK is increased and has already peaked and is now trending down. Some of his CPK again may be secondary to her CPR. Current Visit: Yes (4) Peripheral vascular disease Status: Chronic Assessment and plan: This is clinically stable. Current Visit: No (5) PAF (paroxysmal atrial fibrillation) Status: Chronic Current Visit: No (6) Bilateral carotid artery disease Status: Chronic Current Visit: No (7) End stage renal disease on dialysis Status: Chronic Assessment and plan: Dr. Lara is following apparently planning on peritoneal dialysis today. Current Visit: Yes (8) Anemia Status: Chronic Assessment and plan: There is a chronic issue probably related to some degree that of chronic disease. Current Visit: Yes Qualifiers: Chronic kidney disease stage: on chronic dialysis Cardiology - PN: Subj Interval history: See my previous note of today Exam (Progress Note) - Constitutional Vitals: Period Temp Pulse Resp BP Sys/Sky Pulse Ox Last 24 Hr 96.6 F-97.9 F 55-87 11-77 63-145/38-69 91-100 Result/EKG - Labs CBC & BMP: 08/31/16 03:07 08/31/16 03:07 Labs: Laboratory Results - last 24 hr 08/30/16 08/30/16 08/31/16 08:40 13:04 03:05 WBC RBC Hgb Hct MCV MCH MCHC RDW Plt Count MPV Neut % (Auto) Lymph % (Auto) [place] % (Auto) Eos % (Auto) Baso % (Auto) Neut # (Auto) Lymph # (Auto) [place] # (Auto) Eos # (Auto) Baso # (Auto) Total Counted Immature Gran % Nucleated RBC % Immature Gran # Segmented Neutrophils Band Neutrophils Lymphocytes Monocytes Nucleated RBCs # Microcytosis [place] Cells Morphology Comment ABG pH 7.400 7.444 ABG pCO2 39.8 33.8 L ABG pO2 58.1 L 99.0 H ABG HCO3 24.3 24.2 ABG Total CO2 22.5 L 20.6 L ABG O2 Saturation 89.1 L 97.5 ABG Base Excess 0.0 -0.3 FiO2 60.00 Sodium Potassium Chloride Carbon Dioxide Anion Gap BUN Creatinine GFR Calculation BUN/Creatinine Ratio Glucose Calculated Osmolality Calcium Magnesium Total Creatine Kinase 1477 H D CK-MB (CK-2) 46.5 H D CK and CKMB Interp 3.1 Troponin I 33.800 H 08/31/16 08/31/16 08/31/16 03:07 03:07 03:07 WBC 33.0 H RBC 3.00 L Hgb 9.9 L Hct 28.2 L MCV 94.0 MCH 33 MCHC 35.1 RDW 14.5 Plt Count 247 MPV 12.5 H Neut % (Auto) 88.4 H Lymph % (Auto) 5.4 L [place] % (Auto) 4.7 Eos % (Auto) 0.0 Baso % (Auto) 0.2 Neut # (Auto) 29.1 H Lymph # (Auto) 1.8 [place] # (Auto) 1.6 H Eos # (Auto) 0.0 Baso # (Auto) 0.1 Total Counted 100 Immature Gran % 1.3 Nucleated RBC % 0.1 Immature Gran # 0.44 Segmented Neutrophils 84 Band Neutrophils 9 Lymphocytes 5 L Monocytes 2 Nucleated RBCs # 0.02 Microcytosis Slight [place] Cells Slight Morphology Comment ABG pH ABG pCO2 ABG pO2 ABG HCO3 ABG Total CO2 ABG O2 Saturation ABG Base Excess FiO2 Sodium 130 L Potassium 3.8 Chloride 89 L Carbon Dioxide 23 Anion Gap 21.8 H BUN 46 H Creatinine 7.80 H GFR Calculation 5 BUN/Creatinine Ratio 5.00 L Glucose 76 Calculated Osmolality 270.8 L Calcium 8.7 Magnesium 1.9 Total Creatine Kinase 1163 H D CK-MB (CK-2) 26.6 H D CK and CKMB Interp 2.3 Troponin I 33.300 H Quality Measures - VTE Contraindication to Pharmacological VTE Prophylaxis: High Risk of Bleeding
[2016-08-31] MEDS: CLOPIDOGREL 75 MG TABLET PO SCH (09:15)
[2016-08-31] MEDS: LEVOTHYROXINE 137 MCG TABLET PO SCH (09:15)
[2016-08-31] MEDS: CALCIUM ACETATE 667 MG CAPSULE PO SCH ×3 (09:15→18:22)
[2016-08-31] MEDS: PANTOPRAZOLE 40 MG VIAL IV SCH ×2 (09:16→21:56)
[2016-08-31] MEDS: METOPROLOL TARTRATE 25 MG TABLET PO SCH ×2 (09:16→21:56)
[2016-08-31] MEDS: ASPIRIN EC 81 MG TABLET PO SCH (09:16)
[2016-08-31] MEDS: CILOSTAZOL 50 MG TABLET PO SCH ×2 (09:16→21:56)
[2016-08-31] MEDS: AMIODARONE 200 MG TABLET PO SCH ×2 (09:16→21:56)
[2016-08-31] MEDS: DOCUSATE SODIUM 100 MG CAPSULE PO SCH ×2 (09:16→21:56)
[2016-08-31] MEDS: CALCITRIOL 0.5 MCG CAPSULE PO SCH (09:16)
--- NOTE | 2016-08-31 11:15 | EKG Report ---
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
--- NOTE | 2016-08-31 11:25 | Nephrology Progress Note ---
Nephrology - PN: Subj Interval history: She remains on the ventilator. She developed hypotension when her dopamine was decreased this morning. Her heart rate increased slightly. She has now developed ST segment changes. Systolic blood pressure is now 130 Exam (PN)-Nephrology - Vital Signs Vital signs: Period Temp Pulse Resp BP Sys/Sky Pulse Ox Last 24 Hr 97.0 F-97.9 F 55-87 11-25 63-145/38-69 91-100 Exam: Gen.: Intubated. She does follow commands ENT: Pupils equal round reactive to light. Neck: Supple. No JVD or bruit. Cardiovascular: Regular rate and rhythm. No murmur rub or gallop Lungs: No rales Abdomen: Soft. Nontender. Positive bowel sounds. No organomegaly Extremities: No edema - Lab 08/31/16 03:07 08/31/16 03:07 Most recent lab results ABG pH 7.444 (7.35-7.45) 08/31/16 03:05 ABG pCO2 33.8 MM HG (35-48) L 08/31/16 03:05 ABG pO2 99.0 MM HG (80-95) H 08/31/16 03:05 ABG HCO3 24.2 MMOL/L (20-26) 08/31/16 03:05 ABG O2 Saturation 97.5 % (95-100) 08/31/16 03:05 Calcium 8.7 MG/DL (8.5-10.1) 08/31/16 03:07 Magnesium 1.9 MG/DL (1.8-2.4) 08/31/16 03:07 Assessment and Plan (1) End stage renal disease on dialysis Status: Chronic Assessment and plan: 81-year-old woman admitted with: * Acute AR. Status post cardiac cath. Complicated by ventricular fibrillation and ventilatory failure. Troponin appears to have peaked. She does have ST segment changes this morning. Cardiology is to evaluate. * Hypotension. Improved with dopamine * ESRD. Volume status acceptable. Attempts at volume removal would likely worsen hypotension. Potassium is 3.8. She is not acidotic. Peritoneal dialysis will be held for the time being * Paroxysmal A. fib * Peripheral vascular disease Current Visit: Yes (2) Acute respiratory failure Status: Acute Current Visit: Yes (3) AR, acute, non ST segment elevation Status: Acute Current Visit: Yes (4) Ventricular fibrillation Status: Acute Current Visit: Yes (5) Anemia Status: Chronic Current Visit: Yes Qualifiers: Chronic kidney disease stage: on chronic dialysis (6) Hypertension Status: Chronic Current Visit: No Qualifiers: Hypertension type: essential hypertension Qualified Code(s): I10 - Essential (primary) hypertension (7) Hypothyroidism (acquired) Status: Chronic Current Visit: No (8) PAF (paroxysmal atrial fibrillation) Status: Chronic Current Visit: No (9) Peripheral vascular disease Status: Chronic Current Visit: No
--- NOTE | 2016-08-31 21:25 | Internal Med Progress Note ---
Assessment and Plan (1) Acute NC Status: Acute Current Visit: Yes Qualifiers: Myocardial infarction ST status: non-ST elevation myocardial infarction Qualified Code(s): I21.4 - Non-ST elevation (NSTEMI) myocardial infarction (2) Acute respiratory failure Status: Acute Current Visit: Yes (3) Aspiration into airway Status: Acute Current Visit: Yes (4) Generalized weakness Problem details: acutely worsened Status: Chronic Current Visit: Yes (5) Anemia Status: Chronic Current Visit: Yes Qualifiers: Chronic kidney disease stage: on chronic dialysis (6) ESRD on peritoneal dialysis Status: Chronic Current Visit: Yes (7) Atherosclerotic cardiovascular disease Status: Chronic Current Visit: Yes Internal Medicine - PN: Subj Interval history: This is a 81 year old female with history of ESRD on peritoneal dialysis, HTN, atherosclerotic disease, dyslipidemia, history NC, OA with chronic back pain and mobility issues, who presented to ER with acute NC and underwent emergent cardiac catheterization. CAD with largely occluded RCA and obtuse marginal branch and stent couldn't be placed. She is not a candidate for CABG because of significant comorbidities. She went into V fib post cath and is now in CCU on ventilator support and pressor support. Family at bedside on rounds today. Daughter reports that patient had worsening fatigue over last 2-3 days, and fatigue had been developing over the last month. She had chest pain in ER, but had not complained of pain at home. She was fatigued in recent outpatient dialysis and was given fluid for low normotensive blood pressure noted at the time. Chest x-ray shows right lung extensive infiltrate and she is being treated for aspiration. Dr. Yan following and covering her with Cefepime. She underwent CPAP trial for an hour today. Stable, but still hypotensive requiring pressor support. Peritoneal dialysis will be resumed by Dr. Lara when blood pressure improves without pressor. Exam (Progress Note) - Constitutional Vitals: Period Temp Pulse Resp BP Sys/Sky Pulse Ox Last 24 Hr 96.7 F-97.9 F 34-107 12-26 65-154/38-87 91-100 Exam: General appearance: other (awake on vent) - Respiratory Respiratory exam: Present: clear to auscultation bilaterally - Cardiovascular Cardiovascular exam: Present: regular rate and rhythm - GI/Abdominal GI/Abdominal exam: Present: soft - Extremities Exam Extremities exam: Absent: edema - Neurological Exam Neurological exam: Present: other (awake) - Skin Skin exam: Present: warm, dry, pallor Results - Labs CBC & BMP: 08/31/16 03:07 08/31/16 03:07 Quality Measures - VTE Contraindication to Pharmacological VTE Prophylaxis: High Risk of Bleeding
[2016-08-31] MEDS: PRAVASTATIN 40 MG TABLET PO SCH (21:56)
[2016-09-01] MEDS: SODIUM CHLORIDE 0.9% 1,000 ML IV SCH ×3 (02:00→21:30)
[2016-09-01] MEDS: CLINDAMYCIN INJ 600 MG in PREMIX 1 EACH IV SCH ×3 (02:01→17:54)
[2016-09-01] MEDS: PROPOFOL 1,000 MG/100 ML BOTTLE IV SCH (02:02)
[2016-09-01 03:26] LABS: ABG Base Excess -1.8 MMOL/L (-2.5-2.5); ABG HCO3 21.3 MMOL/L (20-26); ABG Oxygen Saturation 95.3 % (95-100); ABG PCO2 29.7 MM HG (35-48); ABG PH 7.474 (7.35-7.45); ABG PO2 79.1 MM HG (80-95); ABG TCO2 22.2 MMOL/L (23-27); Allen Test Positive; Pt O2 Delivery Device Ventilator
[2016-09-01 07:19] LABS: Basophils # 0.1 10*3/uL (0.0-0.2); Basophils % 0.2 % (0.0-0.8); Hematocrit 22.2 VOL% (35.7-47.0); Hemoglobin 8.1 GM/DL (12.0-16.0); Immature Granulocytes % 1.2 %; Immature Granulocytes Absolute 0.47 #; Lymphocytes # 2.4 10*3/uL (1.4-4.0); Lymphocytes % 6.1 % (21.3-54.2); Mean Corpuscular HGB Conc 36.5 GM/DL (32-36); Mean Corpuscular Hemoglobin 34 PG (27-34); Mean Corpuscular Volume 92.1 FL (87-102); Mean Platelet Volume 12.4 FL (9.6-12.0); Monocytes # 1.4 10*3/uL (0.11-0.8); Monocytes % 3.5 % (1.7-12.7); NRBC # 0.11 10*3/uL; Neutrophils # 34.2 10*3/uL (1.4-7.4); Platelet Count 225 T/CUMM (130-400); Red Blood Count 2.41 MC/CUMM (3.8-5.5); Red Cell Distribution Width 14.6 % (9.3-17.3); White Blood Count 38.5 T/CUMM (4-12)
--- NOTE | 2016-09-01 07:20 | Pulmonology Progress Note ---
Pulmonary - PN: Subj Interval history: This 81-year-old white female has end-stage renal disease on peritoneal dialysis. She came in with weakness and shortness of breath and developed chest pain. She has had a myocardial infarction. Cardiac catheterization revealed right coronary disease but they were not able to intervene. Patient had a cardiac arrest with ventricular fibrillation later that day. She is now on the ventilator. She has a fairly extensive right-sided lung infiltrate. I bronchoscoped her yesterday and clean out some secretions. Gram stains show gram-positive cocci. Cultures pending. She is covered with antibiotics. On Cleocin and cefepime. ABGs are a little better. Will reduce FiO2 and PEEP and see if we can start CPAP today. Peritoneal dialysis has been held for a couple of days. Defer to nephrology. 09/01/2016 patient did not tolerate CPAP yesterday. Still has extensive right- sided infiltrate. Some secretions were suctioning per ET tube not a lot. She continues to be responsive. Has not had peritoneal dialysis as yet. She may be a little ahead on fluids. Exam (Progress Note) - Constitutional Vitals: Period Temp Pulse Resp BP Sys/Sky Pulse Ox Last 24 Hr 96.7 F-98.4 F 34-108 12-26 65-154/38-95 91-100 Exam: Patient sedated but arousable. Moves all 4 extremities. Afebrile. Pupils react to light. Orotracheal tube in place. Neck supple no bruits. Chest shows some rhonchi on the right side. Left lung is clear. Heart normal rate and rhythm no murmurs. Abdomen is soft nontender. Bowel sounds present. Extremities no clubbing cyanosis edema. Calves nontender. Results - Labs CBC & BMP: 08/31/16 03:07 08/31/16 03:07 Lab Results: I have reviewed the past 24 hour labs - Diagnostic Findings Procedure: Chest x-ray: image reviewed by me (Fairly extensive right-sided pulmonary infiltrate. ET tube in good position.) Assessment and Plan (1) Ventricular fibrillation Status: Acute Assessment and plan: She had episode of ventricular fibrillation requiring defibrillation as well as intubation last night. Presently on ventilator and hypoxemic. I suspect that she had an aspiration event. 08/31/2016 does not appear to have any significant brain injury from the arrest. Normal rhythm now. 09/01/2016 sinus rhythm at present. Current Visit: Yes (2) Acute respiratory failure Status: Acute Assessment and plan: Hypoxemia requiring high levels of FiO2. Will increase PEEP hopefully she will tolerate that. Wean as ABGs allow. Mental status appears to be good. 08/31/2016 aspiration pneumonia right lung. Continuing mechanical ventilatory support and antibiotics. Wean when ABGs allow. 09/01/2016 ABGs look fairly good. PO2 79 on 50% with 5 of PEEP. Once again try to wean. May take a little longer for antibiotics to be effective. Probably need to offload a little fluid as well. Current Visit: Yes (3) Aspiration into airway Status: Acute Assessment and plan: This is suspected based on her abnormal chest x-ray post code. pulmonary edema in an atypical fashion may give us this x-ray as well. Will cover empirically with antibiotics. 08/31/2016 clean her out yesterday with a bronchoscope. Did not see any foreign bodies. Has a right-sided pneumonia secondary to aspiration. 09/01/2016 has right-sided aspiration pneumonia. Continuing broad-spectrum antibiotics. Getting Cleocin and cefepime. Cultures negative thus far. Current Visit: Yes (4) Congestive heart failure Status: Resolved Assessment and plan: Needs to resume dialysis. Defer to cardiology and nephrology. LVEDP was 20 at cath yesterday 08/31/2016 cardiology and nephrology will get therapy here. She did have an elevated LVEDP at catheterization. I do think she would be better off if she were dialyzed. 09/01/2016 I do think she needs to be dialyzed. She had elevated LVEDP at catheterization and has not been dialyzed for a few days. This would help us in weaning. Current Visit: No Qualifiers: Congestive heart failure type: unspecified congestive heart failure type Congestive heart failure chronicity: acute on chronic Qualified Code(s): I50.9 - Heart failure, unspecified (5) ESRD on peritoneal dialysis Status: Chronic Assessment and plan: Dr. Lara to see to resume dialysis. 09/01/2016 nephrology following. Current Visit: Yes (6) STEMI (ST elevation myocardial infarction) Status: Acute Assessment and plan: Certainly has enzyme evidence of acute myocardial infarction. Likely the cause of her ventricular fibrillation as well. 08/31/2016 cardiac enzymes confirm myocardial infarction. 09/01/2016 status post apparently posterior myocardial infarction. Current Visit: Yes
[2016-09-01 07:48] LABS: Calcium 8.2 MG/DL (8.5-10.1); Osmolality,Calculated 269.4 MOS/KG (273-304); Potassium 4.9 MMOL/L (3.5-5.1)
[2016-09-01 07:56] LABS: Band Neutrophils 6 % (0-10); Hypochromasia 1+; Lymphocytes 10 % (20-55); Segmented Neutrophils 81 % (50-85); Total Cells Counted 100
[2016-09-01 07:57] LABS: Burr Cells Slight; Microcytosis Slight; Platelet Estimate Normal
[2016-09-01 08:04] LABS: CKMB % 1.7 %
[2016-09-01 08:05] LABS: Troponin I Only 31.8 NG/ML (0.00-0.045)
--- NOTE | 2016-09-01 08:12 | Cardiology Progress Note ---
<Laura Jenkins E - Last Filed: 09/01/16 07:44> Assessment and Plan - Time spent with patient Time spent with patient: Greater than 30 minutes (1) Peripheral vascular disease Status: Chronic Assessment and plan: SEE PLAN OF CARE LISTED BELOW Current Visit: No (2) PAF (paroxysmal atrial fibrillation) Status: Chronic Assessment and plan: SEE PLAN OF CARE LISTED BELOW Current Visit: No (3) Congestive heart failure Status: Acute Assessment and plan: SEE PLAN OF CARE LISTED BELOW Current Visit: Yes Qualifiers: Congestive heart failure type: diastolic Congestive heart failure chronicity: acute on chronic Qualified Code(s): I50.33 - Acute on chronic diastolic (congestive) heart failure (4) End stage renal disease on dialysis Status: Chronic Assessment and plan: SEE PLAN OF CARE LISTED BELOW Current Visit: Yes (5) ESRD on peritoneal dialysis Status: Chronic Assessment and plan: SEE PLAN OF CARE LISTED BELOW Current Visit: Yes (6) Debility Status: Chronic Assessment and plan: SEE PLAN OF CARE LISTED BELOW Current Visit: Yes (7) Diastolic CHF, chronic Status: Chronic Assessment and plan: SEE PLAN OF CARE LISTED BELOW Current Visit: Yes (8) Bilateral carotid artery disease Status: Chronic Assessment and plan: SEE PLAN OF CARE LISTED BELOW Current Visit: No (9) Anemia Status: Chronic Assessment and plan: SEE PLAN OF CARE LISTED BELOW Current Visit: Yes Qualifiers: Chronic kidney disease stage: on chronic dialysis (10) [place], acute, non ST segment elevation Status: Acute Assessment and plan: SEE PLAN OF CARE LISTED BELOW Current Visit: Yes (11) Ventricular fibrillation Status: Acute Current Visit: Yes (12) Acute respiratory failure Status: Acute Assessment and plan: SEE PLAN OF CARE LISTED BELOW Current Visit: Yes (13) Aspiration into airway Status: Acute Assessment and plan: SEE PLAN OF CARE LISTED BELOW Current Visit: Yes (14) CAD (coronary artery disease) Status: Chronic Assessment and plan: SEE PLAN OF CARE LISTED BELOW Current Visit: Yes Qualifiers: Coronary Disease-Associated Artery/Lesion type: cocopah artery Cardiology - PN: Subj Interval history: MARKETING EDITOR: DR. KING SUMMARY: Ms. Fam, 81WF, admitted August 29, 2016 with NSTEMI. She was taken to the [facility] per Dr. King performed heart catheterization with the following noted: Impression: 1. LV gram not done. 2. LVEDP is mildly elevated at 20 mmHg. 3. There is no gradient across the aortic valve. 4. Left main coronary ostial calcification and less than 20% stenosis. 5. LAD with some mid calcification but widely patent. 6. Circumflex artery with mid 50-60% stenosis. Second obtuse marginal branch with complex thrombus in its distal portion. 7. RCA has a very a variant takeoff from the ostium of the left main coronary artery. 99% mid stenosis with LORETO II to III flow. 8. Failed attempt at opening RCA stenosis with closure of the vessel. 9. Right common femoral artery hemostasis obtained by direct manual pressure. Discussion: Patient be monitored in the ICU overnight. Risk factor modification will continue. The thrombus in the second obtuse marginal branch was probably the culprit disease causing her recent symptoms elevated troponin. This though he probably been there for over 12-24 hours. Because this location and it was complex and multiple branches the distal vessel it was felt that would not be appropriate at this point to intervene. There is low vessel beyond the thrombus. The RCA certainly could cause symptoms but we did not have really significant symptoms after closure of the RCA. It was a very difficult vessel to intervene on because of its takeoff. He was a small vessel at mid vessel and beyond. We will treat the patient medically at this time. Patient experienced ventricular fibrillation the evening of August 29, 2016. She required CPR and was intubated. She was loaded with IV amiodarone is currently being maintained on oral amiodarone she has remained in guarded/critical condition in the CCU. Underwent bronchoscopy by Dr. Yan August 30, 2016 for suspected aspiration. Gram stain returned gram-positive cocci, cultures pending. Echo August: Ef 55% - 60%, mild to moderate MR, PAP 34 - 39mmHg. SEPTEMBER 01, 2016: This morning she appears comfortable as she wakes and moves extremities appropriately. She did not tolerate CPAP trials very well yesterday. She still has an extensive right-sided infiltrate. She has not had peritoneal dialysis yet but nephrology is on board. Dopamine continues at 8 mcg /kg/min. Anemia slightly worse this morning with a hemoglobin hematocrit of 8.1 and 22.2 respectively. Currently on low-dose aspirin, Plavix. Trental was changed to Pletal yesterday as Trental cannot be crushed and put down the tube. Holding beta blockers until blood pressures stable. Will check LFTs today. May need to hold Pravastatin depending on results. If patient makes urine, obtain UA today. I do believe she may benefit from nutrition and tube feedings should be considered. Will further discuss with Dr. King and await additional recommendations. ASSESSMENT/PLAN: 1. NSTEMI -has been able to tolerate aspirin, Plavix. Unable to incorporate beta-blockade or MANDEEP inhibitor at this time due to hypotension. On a lipid- lowering agent at this may be held depending on the results of the LFTs this morning. 2. CAD - see cardiac catheterization report listed above. 3. V-FIB ARREST - continue current plan of care 4. HYPOTENSION - currently being maintained on dopamine. 5. CKD REQUIRING PERITONEAL DIALYSIS - nephrology following 6. DYSLIPIDEMIA - will recheck LFTs today. Currently on pravastatin, however we may need to hold depending on the results of the LFTs. LDL at goal 7. ACUTE RESPIRATORY FAILURE - intubated. Did not do well CPAP trials yesterday. Right infiltrate worse on today's chest x-ray. 8. ASPIRATION PNEUMONIA - on appropriate antibiotic regiment. 9. ACUTE ON CHRONIC DIASTOLIC CHF, NYHA Class IV - May be undergoing dialysis soon. This should improve. LVEDP was 20 at cath. 10. ANEMIA -worsened overnight. On Aspirin, Plavix, Pletal. Exam (Progress Note) - Constitutional Vitals: Period Temp Pulse Resp BP Sys/Sky Pulse Ox Last 24 Hr 96.7 F-98.4 F 34-108 12-26 65-154/38-95 91-100 Exam: General: [Appears ill, wakes and moves appropriately ] HEENT: [Normocephalic, atraumatic. Mucous membranes moist. No jaundice noted. Conjunctiva moist and clear, sclerae anicteric] Neck: No obvious JVD/HJR, no thyromegaly or lymphadenopathy noted. Cardiac: [Irregularly irregular rhythm, controlled rate] [II/ HSM heard best at 5ICS left. Lungs: [Course sounds throughout. Remains intubated with symmetrical chest wall movements. Abdomen: Soft, bowel sounds hypoactive. Nontender. Musculoskeletal: No fluid collection. Decreased range of motion is noted. Extremities: No clubbing, cyanosis noted. [ Upper extremity pulses 2+. Lower extremity pulses 1+. Capillary refill less sluggish Skin: No unusual lesions or rashes. No skin breakdown appreciated. Neuro: Awake, alert. Moves all extremities. No essential tremor is appreciated. Result/EKG - Labs CBC & BMP: 09/01/16 07:03 08/31/16 03:07 Lab Results: I have reviewed the past 24 hour labs Labs: Laboratory Results - last 24 hr 09/01/16 09/01/16 03:08 07:03 WBC 38.5 H RBC 2.41 L Hgb 8.1 L Hct 22.2 L MCV 92.1 MCH 34 MCHC 36.5 H RDW 14.6 Plt Count 225 MPV 12.4 H Neut % (Auto) 89.0 H Lymph % (Auto) 6.1 L Ogle % (Auto) 3.5 Eos % (Auto) 0.0 Baso % (Auto) 0.2 Neut # (Auto) 34.2 H Lymph # (Auto) 2.4 Ogle # (Auto) 1.4 H Eos # (Auto) 0.0 Baso # (Auto) 0.1 Immature Gran % 1.2 Nucleated RBC % 0.3 Immature Gran # 0.47 Nucleated RBCs # 0.11 ABG pH 7.474 H ABG pCO2 29.7 L ABG pO2 79.1 L ABG HCO3 21.3 ABG Total CO2 22.2 L ABG O2 Saturation 95.3 ABG Base Excess -1.8 FiO2 50.00 - Diagnostic Findings Procedure: Chest x-ray: report reviewed by tn - EKG EKG results: interpreted by tn EKG shows: atrial fibrillation Quality Measures - VTE Contraindication to Pharmacological VTE Prophylaxis: High Risk of Bleeding <Georges King - Last Filed: 09/01/16 08:59> Assessment and Plan (1) Ventricular fibrillation Status: Acute Current Visit: Yes (2) [place], acute, non ST segment elevation Status: Acute Current Visit: Yes (3) Elevated troponin Status: Acute Current Visit: Yes (4) Peripheral vascular disease Status: Chronic Current Visit: No (5) PAF (paroxysmal atrial fibrillation) Status: Chronic Current Visit: No (6) Bilateral carotid artery disease Status: Chronic Current Visit: No (7) End stage renal disease on dialysis Status: Chronic Current Visit: Yes (8) Anemia Status: Chronic Current Visit: Yes Qualifiers: Chronic kidney disease stage: on chronic dialysis Cardiology - PN: Subj Interval history: Patient examined and chart reviewed. The patient still on the ventilator but will respond some to stimuli. She is on propofol. Have discussed case with Laura Jenkins, HEALTHCARE SPECIALIST. In summation and addition this patient's having more ventricular ectopy. Her H& H is now diminished. Her chest x-ray has not improved. Her troponin is remaining flat and her CPK is increasing. She has not had dialysis now and 48- 72 hours. Her blood pressures up and down is down some this morning. She still on low-dose dopamine. She is still on the propofol as noted. Beta- blockers being held at this time because of her blood pressures. I think certainly this patient would benefit from blood transfusion but I am concerned about giving her blood until she is dialyzed at least volume is been removed. Her LV function is been good without any significant valvular abnormalities. I think her hypotension is related to her underlying pneumonia infection as well as some other metabolic issues. Her sodium is low. Medical head in order blood transfusion at least 2 units after patient is dialyzed by way of PD. I am concerned that this patient is not making positive progress at this time. Exam (Progress Note) - Constitutional Vitals: Period Temp Pulse Resp BP Sys/Sky Pulse Ox Last 24 Hr 96.7 F-98.4 F 34-108 12-26 65-154/28-110 91-100 Result/EKG - Labs CBC & BMP: 09/01/16 07:03 09/01/16 07:03 Labs: Laboratory Results - last 24 hr 09/01/16 09/01/16 09/01/16 03:08 07:03 07:03 WBC 38.5 H RBC 2.41 L Hgb 8.1 L Hct 22.2 L MCV 92.1 MCH 34 MCHC 36.5 H RDW 14.6 Plt Count 225 MPV 12.4 H Neut % (Auto) 89.0 H Lymph % (Auto) 6.1 L Ogle % (Auto) 3.5 Eos % (Auto) 0.0 Baso % (Auto) 0.2 Neut # (Auto) 34.2 H Lymph # (Auto) 2.4 Ogle # (Auto) 1.4 H Eos # (Auto) 0.0 Baso # (Auto) 0.1 Total Counted 100 Immature Gran % 1.2 Nucleated RBC % 0.3 Immature Gran # 0.47 Segmented Neutrophils 81 Band Neutrophils 6 Lymphocytes 10 L Monocytes 3 Nucleated RBCs # 0.11 Platelet Estimate Normal Hypochromasia 1+ Microcytosis Slight Supply Cells Slight ABG pH 7.474 H ABG pCO2 29.7 L ABG pO2 79.1 L ABG HCO3 21.3 ABG Total CO2 22.2 L ABG O2 Saturation 95.3 ABG Base Excess -1.8 FiO2 50.00 Sodium 126 L Potassium 4.9 Chloride 89 L Carbon Dioxide 19 L Anion Gap 22.9 H BUN 61 H Creatinine 8.70 H GFR Calculation 4 BUN/Creatinine Ratio 7.00 Glucose 106 Calculated Osmolality 269.4 L Calcium 8.2 L Magnesium 2.0 Total Creatine Kinase CK-MB (CK-2) CK and CKMB Interp Troponin I 09/01/16 07:03 WBC RBC Hgb Hct MCV MCH MCHC RDW Plt Count MPV Neut % (Auto) Lymph % (Auto) Ogle % (Auto) Eos % (Auto) Baso % (Auto) Neut # (Auto) Lymph # (Auto) Ogle # (Auto) Eos # (Auto) Baso # (Auto) Total Counted Immature Gran % Nucleated RBC % Immature Gran # Segmented Neutrophils Band Neutrophils Lymphocytes Monocytes Nucleated RBCs # Platelet Estimate Hypochromasia Microcytosis Sergio Cells ABG pH ABG pCO2 ABG pO2 ABG HCO3 ABG Total CO2 ABG O2 Saturation ABG Base Excess FiO2 Sodium Potassium Chloride Carbon Dioxide Anion Gap BUN Creatinine GFR Calculation BUN/Creatinine Ratio Glucose Calculated Osmolality Calcium Magnesium Total Creatine Kinase 2704 H D CK-MB (CK-2) 45.6 H D CK and CKMB Interp 1.7 Troponin I 31.800 H
--- NOTE | 2016-09-01 08:17 | XRay Report ---
Exam: XR chest 1V portable Date: 09/01/2016 4:00 AM Indication: Follow-up ventilator respiratory failure Comparison: 08/31/2016 Technical: AP Findings: Endotracheal tube nasogastric tube external cardiac leads and a cardiac pad are present over the chest. Cardiomegaly is present. Underlying COPD and fibrotic scarring present with some persistent areas of consolidation/atelectasis change or masslike densities over the right upper and lower chest. Old right rib fracture is also present. Impression: 1. Stable appearance of life support tubing 2. Diffuse abnormalities in the right upper middle and lower lobe region with underlying COPD change. Findings are unchanged compared to previous study. PROCEDURE INTERPRETED AT [facility] DEPARTMENT OF RADIOLOGY Final Report Signed by: Dr. Jasiel Moreno
[2016-09-01] MEDS ORDERED: SODIUM CHLORIDE 0.9% 250 ML IV PRN (08:55)
[2016-09-01 09:05] LABS: Albumin 1.1 G/DL (3.4-5.0); Bilirubin,Direct 0.2 MG/DL (0.0-0.20); Bilirubin,Indirect 0.2 MG/DL (0.0-1.0); Bilirubin,Total 0.4 MG/DL (0.2-1.0); Total Protein 4.4 G/DL (6.4-8.3)
[2016-09-01] MEDS: CALCIUM ACETATE 667 MG CAPSULE PO SCH ×3 (09:23→17:55)
[2016-09-01] MEDS: CEFEPIME 500 MG in SODIUM CHLORIDE 0.9% 100 ML IV SCH ×2 (09:41→21:30)
[2016-09-01] MEDS: CLOPIDOGREL 75 MG TABLET PO SCH (09:41)
[2016-09-01] MEDS: ASPIRIN EC 81 MG TABLET PO SCH (09:41)
[2016-09-01] MEDS: PANTOPRAZOLE 40 MG VIAL IV SCH ×2 (09:41→21:30)
[2016-09-01] MEDS: METOPROLOL TARTRATE 25 MG TABLET PO SCH ×2 (09:42→21:04)
[2016-09-01] MEDS: CALCITRIOL 0.5 MCG CAPSULE PO SCH (09:42)
[2016-09-01] MEDS: DOCUSATE SODIUM 100 MG CAPSULE PO SCH ×2 (09:42→21:03)
[2016-09-01] MEDS: AMIODARONE 200 MG TABLET PO SCH ×2 (09:42→21:03)
[2016-09-01] MEDS: CILOSTAZOL 50 MG TABLET PO SCH ×2 (09:42→21:04)
[2016-09-01] MEDS: LEVOTHYROXINE 137 MCG TABLET PO SCH (09:42)
--- NOTE | 2016-09-01 10:10 | Nephrology Progress Note ---
Nephrology - PN: Subj Interval history: She remains on the ventilator. She is requiring pressor support, although at lower doses than yesterday. She is awake and follows some commands. Exam (PN)-Nephrology - Vital Signs Vital signs: Period Temp Pulse Resp BP Sys/Sky Pulse Ox Last 24 Hr 96.7 F-98.4 F 34-108 12-26 68-154/28-110 91-100 Exam: Gen.: Intubated. Follow simple commands ENT: Pupils equal round reactive to light. Neck: Supple. No JVD or bruit. Cardiovascular: Regular rate and rhythm. No murmur rub or gallop Lungs: Clear left. Few rhonchi on the right Abdomen: Soft. Nontender. Positive bowel sounds. No organomegaly Extremities: No edema - Lab 09/01/16 07:03 09/01/16 07:03 Most recent lab results ABG pH 7.474 (7.35-7.45) H 09/01/16 03:08 ABG pCO2 29.7 MM HG (35-48) L 09/01/16 03:08 ABG pO2 79.1 MM HG (80-95) L 09/01/16 03:08 ABG HCO3 21.3 MMOL/L (20-26) 09/01/16 03:08 ABG O2 Saturation 95.3 % (95-100) 09/01/16 03:08 Calcium 8.2 MG/DL (8.5-10.1) L 09/01/16 07:03 Magnesium 2.0 MG/DL (1.8-2.4) 09/01/16 07:03 Assessment and Plan (1) End stage renal disease on dialysis Status: Chronic Assessment and plan: 81-year-old woman admitted with: * Acute IA. Status post cardiac cath. Complicated by ventricular fibrillation and ventilatory failure. * Hypotension. Improved with dopamine * ESRD. She is developing hyponatremia. Peritoneal dialysis exchanges will be resumed today with 2.5% Dianeal * Anemia. Transfusion today * Paroxysmal A. fib * Peripheral vascular disease Current Visit: Yes (2) Acute respiratory failure Status: Acute Current Visit: Yes (3) [place], acute, non ST segment elevation Status: Acute Current Visit: Yes (4) Ventricular fibrillation Status: Acute Current Visit: Yes (5) Anemia Status: Chronic Current Visit: Yes Qualifiers: Chronic kidney disease stage: on chronic dialysis (6) Hypertension Status: Chronic Current Visit: No Qualifiers: Hypertension type: essential hypertension Qualified Code(s): I10 - Essential (primary) hypertension (7) Hypothyroidism (acquired) Status: Chronic Current Visit: No (8) PAF (paroxysmal atrial fibrillation) Status: Chronic Current Visit: No (9) Peripheral vascular disease Status: Chronic Current Visit: No
[2016-09-01] MEDS ORDERED: GLUCAGON 1 MG VIAL IM PRN (10:27)
[2016-09-01] MEDS: INSULIN REGULAR 100 UNIT/ML SUBCUT SCH ×2 (13:19→17:39)
--- NOTE | 2016-09-01 15:10 | Internal Med Progress Note ---
Assessment and Plan (1) Acute NV Status: Acute Current Visit: Yes Qualifiers: Myocardial infarction ST status: non-ST elevation myocardial infarction Qualified Code(s): I21.4 - Non-ST elevation (NSTEMI) myocardial infarction (2) Acute respiratory failure Status: Acute Current Visit: Yes (3) Aspiration into airway Status: Acute Current Visit: Yes (4) Generalized weakness Problem details: acutely worsened Status: Chronic Current Visit: Yes (5) Anemia Status: Chronic Current Visit: Yes Qualifiers: Chronic kidney disease stage: on chronic dialysis (6) ESRD on peritoneal dialysis Status: Chronic Current Visit: Yes (7) Atherosclerotic cardiovascular disease Status: Chronic Current Visit: Yes Internal Medicine - PN: Subj Interval history: This is a 81 year old female with history of ESRD on peritoneal dialysis, HTN, atherosclerotic disease, dyslipidemia, history NV, OA with chronic back pain and mobility issues, who presented to ER with acute NV and underwent emergent cardiac catheterization. CAD with largely occluded RCA and obtuse marginal branch and stent couldn't be placed. She is not a candidate for CABG because of significant comorbidities. She went into V fib post cath and is now in CCU on ventilator support and pressor support. Family at bedside on rounds today. Daughter reports that patient had worsening fatigue over last 2-3 days, and fatigue had been developing over the last month. She had chest pain in ER, but had not complained of pain at home. She was fatigued in recent outpatient dialysis and was given fluid for low normotensive blood pressure noted at the time. Chest x-ray shows right lung extensive infiltrate and she is being treated for aspiration. Dr. Yan following and covering her with Cefepime. She underwent CPAP trial for an hour today. Stable, but still hypotensive requiring pressor support. Peritoneal dialysis will be resumed by Dr. Lara when blood pressure improves without pressor. CPAP trials again today, and doing better. Peritoneal dialysis and cardiac PVCs have resolved. Exam (Progress Note) - Constitutional Vitals: Period Temp Pulse Resp BP Sys/Sky Pulse Ox Last 24 Hr 96.8 F-98.4 F 34-108 12-27 68-150/28-110 90-100 Exam: General appearance: other (awake on vent) - Respiratory Respiratory exam: Present: clear to auscultation bilaterally - Cardiovascular Cardiovascular exam: Present: regular rate and rhythm - GI/Abdominal GI/Abdominal exam: Present: soft - Extremities Exam Extremities exam: Absent: edema - Neurological Exam Neurological exam: Present: other (awake) - Skin Skin exam: Present: warm, dry, pallor Results - Labs CBC & BMP: 09/01/16 07:03 09/01/16 07:03 Quality Measures - VTE Contraindication to Pharmacological VTE Prophylaxis: High Risk of Bleeding
[2016-09-01] MEDS: DOPamine 800 MG/250 ML PREMIX IV SCH (16:53)
[2016-09-01] MEDS: PRAVASTATIN 40 MG TABLET PO SCH (21:04)
[2016-09-01] MEDS: DESITIN 4OZ/NYSTATIN 15 GRAM MIXTURE PASTE TOP SCH (21:15)
[2016-09-02] MEDS: CLINDAMYCIN INJ 600 MG in PREMIX 1 EACH IV SCH ×4 (00:30→23:20)
[2016-09-02] MEDS: DOPamine 800 MG/250 ML PREMIX IV SCH ×2 (02:45→16:50)
[2016-09-02] MEDS: PROPOFOL 1,000 MG/100 ML BOTTLE IV SCH ×4 (02:48→23:45)
[2016-09-02] MEDS: INSULIN REGULAR 100 UNIT/ML SUBCUT SCH ×4 (02:49→18:17)
--- NOTE | 2016-09-02 04:41 | Pulmonology Progress Note ---
Pulmonary - PN: Subj Interval history: This 81-year-old white female has end-stage renal disease on peritoneal dialysis. She came in with weakness and shortness of breath and developed chest pain. She has had a myocardial infarction. Cardiac catheterization revealed right coronary disease but they were not able to intervene. Patient had a cardiac arrest with ventricular fibrillation later that day. She is now on the ventilator. She has a fairly extensive right-sided lung infiltrate. I bronchoscoped her yesterday and clean out some secretions. Gram stains show gram-positive cocci. Cultures pending. She is covered with antibiotics. On Cleocin and cefepime. ABGs are a little better. Will reduce FiO2 and PEEP and see if we can start CPAP today. Peritoneal dialysis has been held for a couple of days. Defer to nephrology. 09/01/2016 patient did not tolerate CPAP yesterday. Still has extensive right- sided infiltrate. Some secretions were suctioning per ET tube not a lot. She continues to be responsive. Has not had peritoneal dialysis as yet. She may be a little ahead on fluids. 09/02/2016 this morning patient is continuing with mechanical ventilation. She was dialyzed yesterday. Chest x-ray and arterial blood gases are pending at present. Continue to try weaning as tolerated. She did CPAP trials yesterday without difficulty. Exam (Progress Note) - Constitutional Vitals: Period Temp Pulse Resp BP Sys/Sky Pulse Ox Last 24 Hr 96.3 F-98.3 F 74-104 12-27 74-150/28-110 87-100 Exam: Patient sedated but arousable. Moves all 4 extremities. Afebrile. Pupils react to light. Orotracheal tube in place. Neck supple no bruits. Chest shows some rhonchi on the right side. Left lung is clear. Heart normal rate and rhythm no murmurs. Abdomen is soft nontender. Bowel sounds present. Extremities no clubbing cyanosis edema. Calves nontender. Little change from yesterday. Results - Labs CBC & BMP: 09/01/16 07:03 09/01/16 07:03 Lab Results: I have reviewed the past 24 hour labs Assessment and Plan (1) Ventricular fibrillation Status: Acute Assessment and plan: She had episode of ventricular fibrillation requiring defibrillation as well as intubation last night. Presently on ventilator and hypoxemic. I suspect that she had an aspiration event. 08/31/2016 does not appear to have any significant brain injury from the arrest. Normal rhythm now. 09/01/2016 sinus rhythm at present. 09/02/2016 normal rhythm. No apparent hypoxic brain injury. Current Visit: Yes (2) Acute respiratory failure Status: Acute Assessment and plan: Hypoxemia requiring high levels of FiO2. Will increase PEEP hopefully she will tolerate that. Wean as ABGs allow. Mental status appears to be good. 08/31/2016 aspiration pneumonia right lung. Continuing mechanical ventilatory support and antibiotics. Wean when ABGs allow. 09/01/2016 ABGs look fairly good. PO2 79 on 50% with 5 of PEEP. Once again try to wean. May take a little longer for antibiotics to be effective. Probably need to offload a little fluid as well. 09/02/2016 continuing weaning trials. Hopefully can get extubated soon. ABGs and x-ray pending at present Current Visit: Yes (3) Aspiration into airway Status: Acute Assessment and plan: This is suspected based on her abnormal chest x-ray post code. pulmonary edema in an atypical fashion may give us this x-ray as well. Will cover empirically with antibiotics. 08/31/2016 clean her out yesterday with a bronchoscope. Did not see any foreign bodies. Has a right-sided pneumonia secondary to aspiration. 09/01/2016 has right-sided aspiration pneumonia. Continuing broad-spectrum antibiotics. Getting Cleocin and cefepime. Cultures negative thus far. Current Visit: Yes (4) Congestive heart failure Status: Acute Assessment and plan: Needs to resume dialysis. Defer to cardiology and nephrology. LVEDP was 20 at cath yesterday 08/31/2016 cardiology and nephrology will get therapy here. She did have an elevated LVEDP at catheterization. I do think she would be better off if she were dialyzed. 09/01/2016 I do think she needs to be dialyzed. She had elevated LVEDP at catheterization and has not been dialyzed for a few days. This would help us in weaning. 09/02/2016 this should be better post dialysis. Chest x-ray pending Current Visit: Yes Qualifiers: Congestive heart failure type: diastolic Congestive heart failure chronicity: acute on chronic Qualified Code(s): I50.33 - Acute on chronic diastolic (congestive) heart failure (5) ESRD on peritoneal dialysis Status: Chronic Assessment and plan: Dr. Lara to see to resume dialysis. 09/01/2016 nephrology following. 09/02/2016 received peritoneal dialysis yesterday. Current Visit: Yes (6) STEMI (ST elevation myocardial infarction) Status: Acute Assessment and plan: Certainly has enzyme evidence of acute myocardial infarction. Likely the cause of her ventricular fibrillation as well. 08/31/2016 cardiac enzymes confirm myocardial infarction. 09/01/2016 status post apparently posterior myocardial infarction. Current Visit: Yes
[2016-09-02 05:39] LABS: ABG Base Excess -1.5 MMOL/L (-2.5-2.5); ABG HCO3 23.1 MMOL/L (20-26); ABG Oxygen Saturation 94.9 % (95-100); ABG PCO2 34.1 MM HG (35-48); ABG PH 7.423 (7.35-7.45); ABG PO2 76.1 MM HG (80-95); Allen Test Positive; Pt O2 Delivery Device Ventilator
[2016-09-02 06:06] LABS: Basophils # 0.1 10*3/uL (0.0-0.2); Basophils % 0.3 % (0.0-0.8); Eosinophils # 0.1 10*3/uL (0.0-0.87); Eosinophils % 0.2 % (0.00-10.9); Immature Granulocytes Absolute 0.53 #; Lymphocytes # 1.3 10*3/uL (1.4-4.0); Lymphocytes % 4.9 % (21.3-54.2); Mean Corpuscular HGB Conc 36.7 GM/DL (32-36); Mean Corpuscular Hemoglobin 33 PG (27-34); Mean Corpuscular Volume 88.8 FL (87-102); Mean Platelet Volume 12.4 FL (9.6-12.0); Monocytes # 0.9 10*3/uL (0.11-0.8); Monocytes % 3.4 % (1.7-12.7); NRBC # 0.27 10*3/uL; Neutrophils # 23.6 10*3/uL (1.4-7.4); Neutrophils % 89.2 % (38.7-73.9); Platelet Count 194 T/CUMM (130-400); Red Blood Count 3.38 MC/CUMM (3.8-5.5); Red Cell Distribution Width 14.3 % (9.3-17.3); White Blood Count 26.5 T/CUMM (4-12)
[2016-09-02 06:49] LABS: Albumin 1.1 G/DL (3.4-5.0); Bilirubin,Total 1.5 MG/DL (0.2-1.0); Calcium 8.5 MG/DL (8.5-10.1); Osmolality,Calculated 268.4 MOS/KG (273-304); Potassium 3.7 MMOL/L (3.5-5.1); Total Protein 4.6 G/DL (6.4-8.3)
[2016-09-02 06:53] LABS: Band Neutrophils 11 % (0-10); Lymphocytes 5 % (20-55); Metamyelocytes 2 %; Nucleated Red Blood Cells 2 (0-5); Segmented Neutrophils 77 % (50-85); Total Cells Counted 100
[2016-09-02 06:54] LABS: Burr Cells Few; Hypochromasia 1+; Microcytosis 1+
[2016-09-02 06:55] LABS: Platelet Estimate Adequate
[2016-09-02 07:11] LABS: CKMB % 1.9 %
[2016-09-02 07:12] LABS: Troponin I Only 24.7 NG/ML (0.00-0.045)
--- NOTE | 2016-09-02 08:54 | XRay Report ---
XR chest 1V portable Indication: Intubated. Chest one view: Since yesterday, defibrillator pad has been removed. Endotracheal tube, NG tube, cardiomegaly, obscuration of the left lung base and general opacification of the right lung is stable. No new opacities are seen. Impression: No significant change. PROCEDURE INTERPRETED AT [facility] DEPARTMENT OF RADIOLOGY Final Report Signed by: Georges Flaherty M.D.
[2016-09-02] MEDS: CEFEPIME 500 MG in SODIUM CHLORIDE 0.9% 100 ML IV SCH ×2 (09:11→21:30)
[2016-09-02] MEDS: CALCIUM ACETATE 667 MG CAPSULE PO SCH ×3 (09:11→18:39)
[2016-09-02] MEDS: DOCUSATE SODIUM 100 MG CAPSULE PO SCH ×2 (09:12→21:19)
[2016-09-02] MEDS: ASPIRIN EC 81 MG TABLET PO SCH (09:12)
[2016-09-02] MEDS: ALPRAZolam 0.25 MG TABLET PO PRN (09:12)
[2016-09-02] MEDS: AMIODARONE 200 MG TABLET PO SCH ×2 (09:13→21:19)
[2016-09-02] MEDS: CALCITRIOL 0.5 MCG CAPSULE PO SCH (09:13)
[2016-09-02] MEDS: LEVOTHYROXINE 137 MCG TABLET PO SCH (09:13)
[2016-09-02] MEDS: METOPROLOL TARTRATE 25 MG TABLET PO SCH (09:13)
[2016-09-02] MEDS: CLOPIDOGREL 75 MG TABLET PO SCH (09:13)
[2016-09-02] MEDS: CILOSTAZOL 50 MG TABLET PO SCH ×2 (09:13→21:20)
[2016-09-02] MEDS: DESITIN 4OZ/NYSTATIN 15 GRAM MIXTURE PASTE TOP SCH ×2 (09:21→21:20)
[2016-09-02] MEDS: PANTOPRAZOLE 40 MG VIAL IV SCH ×2 (09:21→21:20)
--- NOTE | 2016-09-02 11:15 | Cardiology Progress Note ---
Assessment and Plan (1) Ventricular fibrillation Status: Acute Assessment and plan: This is post myocardial infarction. She has been stable on amiodarone. She also is on p.o. beta-hermilo but because her blood pressure and I think we will going to try to stop that. Current Visit: Yes (2) CT, acute, non ST segment elevation Status: Acute Assessment and plan: Her troponins remain elevated but are flat and now decreasing. Her CPK is though Rollet risen. Current Visit: Yes (3) Elevated troponin Status: Acute Assessment and plan: This is trending down now and I think this is prior related to her dialysis. Her CPKs though are markedly increased as are her liver enzymes. This should not be from cardiac especially in light of her troponin is decreasing. Current Visit: Yes (4) Peripheral vascular disease Status: Chronic Assessment and plan: This is clinically stable. Current Visit: No (5) PAF (paroxysmal atrial fibrillation) Status: Chronic Assessment and plan: No breakthrough episodes. She is on amiodarone now. Current Visit: No (6) Bilateral carotid artery disease Status: Chronic Current Visit: No (7) End stage renal disease on dialysis Status: Chronic Assessment and plan: Dr. Lara is treating her with her peritoneal dialysis at this time. Current Visit: Yes (8) Anemia Status: Chronic Assessment and plan: Has a chronic element of this that is exacerbated with his adequate H&H today posttransfusion. Current Visit: Yes Qualifiers: Chronic kidney disease stage: on chronic dialysis (9) Hypotension Status: Acute Assessment and plan: This been an ongoing problem and she is on dopamine. This may be exacerbated by her propofol. We will stop her metoprolol because of her low blood pressures and see if this will help. Current Visit: Yes (10) Acute respiratory failure Status: Acute Assessment and plan: Acute respiratory failure that may be secondary to her aspiration. She is slowly weaning is showing evidence of improvement. Current Visit: Yes Cardiology - PN: Subj Interval history: Patient is post non-ST segment elevation myocardial infarction after which she had ventricular fibrillation and what may be right long aspiration pneumonia or hematoma be followed by pulmonary. She remains on the ventilator. Yesterday she she is having some increased ectopy but this is improved markedly with her dialysis. She is not having any further dysrhythmias and or PVCs. Her heart rates are stable. Some issue has been her blood pressure being lowish. She still on dopamine. Part of this may be her metoprolol. I think we can try to stop this with her being on the amiodarone now. The patient's lab work reveals that her troponin is decreased now to 24.7 with her dialysis. Her CPK is increased to 10,489 and I am not sure where this is coming from. It is not cardiac. Certainly from her CPR but this is a little higher than I would expect. Her sodium is at 126 and is stable. Potassium is stable. Her creatinine is down some. Her bicarb is improved. Her H&H is improved with the blood transfusions. Her liver enzymes are elevated some. Now discussed situation with the family. Exam (Progress Note) - Constitutional Vitals: Period Temp Pulse Resp BP Sys/Sky Pulse Ox Last 24 Hr 96.3 F-98.3 F 71-104 12-26 85-141/34-90 87-100 Exam: General appearance: normal weight, intubated on propofol. She does open her eyes up to stimuli. HEENT exam: Orally intubated with NG tube. Neck exam: normal inspection no JVD. No carotid bruit. Trachea is in midline Respiratory/lungs exam: clear to auscultation anteriorly and bilaterally good air movement. Cardiovascular exam: regular rate and rhythm, no murmur noted today. Chest wall exam: No gross deformity, she does grimace a little bit with palpation. GI/Abdominal exam: Bowel sounds are present, soft. She is presently undergoing peritoneal dialysis. Extremeties/musculoskeletal: normal inspection without edema or cyanosis. Neurological exam: Patient on propofol but does respond to palpation of the chest as well as open her eyes when spoken to. Psychiatric exam: Patient is not agitated. She is on propofol. Skin exam: normal color, warm Result/EKG - Labs CBC & BMP: 09/02/16 05:49 09/02/16 05:49 Lab Results: I have reviewed the past 24 hour labs (This is reviewed and noted.) Labs: Laboratory Results - last 24 hr 09/01/16 09/01/16 09/01/16 07:00 11:54 11:57 WBC RBC Hgb Hct MCV MCH MCHC RDW Plt Count MPV Neut % (Auto) Lymph % (Auto) [place] % (Auto) Eos % (Auto) Baso % (Auto) Neut # (Auto) Lymph # (Auto) [place] # (Auto) Eos # (Auto) Baso # (Auto) Total Counted Immature Gran % Nucleated RBC % Immature Gran # Segmented Neutrophils Band Neutrophils Lymphocytes Monocytes Metamyelocytes Nucleated RBCs Nucleated RBCs # Platelet Estimate Hypochromasia Microcytosis [place] Cells ABG pH ABG pCO2 ABG pO2 ABG HCO3 ABG Total CO2 ABG O2 Saturation ABG Base Excess Sodium Potassium Chloride Carbon Dioxide Anion Gap BUN Creatinine GFR Calculation BUN/Creatinine Ratio Glucose POC Glucose 88 78 Calculated Osmolality Calcium Magnesium Total Bilirubin AST ALT Alkaline Phosphatase Total Creatine Kinase CK-MB (CK-2) CK and CKMB Interp Troponin I Total Protein Albumin Globulin Albumin/Globulin Ratio Blood Type A NEGATIVE Antibody Screen Negative Crossmatch See Detail 09/01/16 09/02/16 09/02/16 15:56 05:30 05:49 WBC RBC Hgb Hct MCV MCH MCHC RDW Plt Count MPV Neut % (Auto) Lymph % (Auto) [place] % (Auto) Eos % (Auto) Baso % (Auto) Neut # (Auto) Lymph # (Auto) [place] # (Auto) Eos # (Auto) Baso # (Auto) Total Counted Immature Gran % Nucleated RBC % Immature Gran # Segmented Neutrophils Band Neutrophils Lymphocytes Monocytes Metamyelocytes Nucleated RBCs Nucleated RBCs # Platelet Estimate Hypochromasia Microcytosis [place] Cells ABG pH 7.423 ABG pCO2 34.1 L ABG pO2 76.1 L ABG HCO3 23.1 ABG Total CO2 20.0 L ABG O2 Saturation 94.9 L ABG Base Excess -1.5 Sodium Potassium Chloride Carbon Dioxide Anion Gap BUN Creatinine GFR Calculation BUN/Creatinine Ratio Glucose POC Glucose 100 Calculated Osmolality Calcium Magnesium Total Bilirubin AST ALT Alkaline Phosphatase Total Creatine Kinase 24144 H D CK-MB (CK-2) 204.3 H D CK and CKMB Interp 1.9 Troponin I 24.700 H D Total Protein Albumin Globulin Albumin/Globulin Ratio Blood Type Antibody Screen Crossmatch 09/02/16 09/02/16 05:49 05:49 WBC 26.5 H D RBC 3.38 L D Hgb 11.0 L D Hct 30.0 L MCV 88.8 MCH 33 MCHC 36.7 H RDW 14.3 Plt Count 194 MPV 12.4 H Neut % (Auto) 89.2 H Lymph % (Auto) 4.9 L Calloway % (Auto) 3.4 Eos % (Auto) 0.2 Baso % (Auto) 0.3 Neut # (Auto) 23.6 H Lymph # (Auto) 1.3 L [place] # (Auto) 0.9 H Eos # (Auto) 0.1 Baso # (Auto) 0.1 Total Counted 100 Immature Gran % 2.0 Nucleated RBC % 1.0 Immature Gran # 0.53 Segmented Neutrophils 77 Band Neutrophils 11 H Lymphocytes 5 L Monocytes 5 Metamyelocytes 2 Nucleated RBCs 2 Nucleated RBCs # 0.27 Platelet Estimate Adequate Hypochromasia 1+ Microcytosis 1+ Sergio Cells Few ABG pH ABG pCO2 ABG pO2 ABG HCO3 ABG Total CO2 ABG O2 Saturation ABG Base Excess Sodium 126 L Potassium 3.7 Chloride 89 L Carbon Dioxide 24 Anion Gap 16.7 H BUN 60 H Creatinine 7.70 H GFR Calculation 5 BUN/Creatinine Ratio 7.00 Glucose 81 POC Glucose Calculated Osmolality 268.4 L Calcium 8.5 Magnesium 2.0 Total Bilirubin 1.50 H AST 480 H ALT 106 H Alkaline Phosphatase 96 Total Creatine Kinase CK-MB (CK-2) CK and CKMB Interp Troponin I Total Protein 4.6 L Albumin 1.1 L Globulin 3.5 Albumin/Globulin Ratio 0.3 L Blood Type Antibody Screen Crossmatch Quality Measures - VTE Contraindication to Pharmacological VTE Prophylaxis: High Risk of Bleeding
[2016-09-02] MEDS: DEXTROSE 50% 25 GM/50 ML VIAL IV PRN (11:50)
--- NOTE | 2016-09-02 12:38 | Nephrology Progress Note ---
Nephrology - PN: Subj Interval history: This 81-year-old white female has end-stage renal disease on peritoneal dialysis. She came in with weakness and shortness of breath and developed chest pain. She has had a myocardial infarction. She is status post cardiac catheterization which revealed right coronary disease but no intervention done due to severity of disease. Moreover, the patient had a cardiac arrest with ventricular fibrillation later that day. She remains on the ventilator. She has a fairly extensive right-sided lung infiltrate. Peritoneal dialysis exchanges have been restarted. Currently has been receiving 2.25% dextrose with some volume removal. However weight have not shown changes. 09/02/2016 the patient is continued with weaning trials. She is awake and alert. Peritoneal dialysis is going acceptable. We will add a 4.25 dextrose percent in today's bag to help with volume management. Will continue at 2.25% dextrose on all other exchanges. Striving to get an accurate weight on this patient. We will do daily weights. Exam (PN)-Nephrology - Vital Signs Vital signs: Period Temp Pulse Resp BP Sys/Sky Pulse Ox Last 24 Hr 96.3 F-98.1 F 71-99 12-26 85-141/41-90 87-100 - General Appearance General appearance: well-developed, intubated EENT: ATNC Neck: supple Respiratory: clear Cardiology: regular rate, regular rhythm Gastrointestinal: normoactive bowel sounds, no tenderness, no masses Musculoskeletal: no clubbing - Lab 09/02/16 05:49 09/02/16 05:49 Most recent lab results ABG pH 7.423 (7.35-7.45) 09/02/16 05:30 ABG pCO2 34.1 MM HG (35-48) L 09/02/16 05:30 ABG pO2 76.1 MM HG (80-95) L 09/02/16 05:30 ABG HCO3 23.1 MMOL/L (20-26) 09/02/16 05:30 ABG O2 Saturation 94.9 % (95-100) L 09/02/16 05:30 Calcium 8.5 MG/DL (8.5-10.1) 09/02/16 05:49 Magnesium 2.0 MG/DL (1.8-2.4) 09/02/16 05:49 Assessment and Plan (1) Peripheral vascular disease Status: Chronic Current Visit: No (2) Rheumatoid arthritis Status: Chronic Current Visit: No Qualifiers: Rheumatoid arthritis location: knee Laterality: bilateral (3) ESRD on peritoneal dialysis Status: Chronic Assessment and plan: Continue with PD exchanges. 4.25 exchanges today all other changes will be only 2.5% dextrose. Current Visit: Yes (4) Debility Status: Chronic Current Visit: Yes (5) CAD (coronary artery disease) Status: Chronic Current Visit: Yes Qualifiers: Coronary Disease-Associated Artery/Lesion type: chinik artery
--- NOTE | 2016-09-02 14:14 | Family Practice Progress Note ---
Family Practice - PN: Subj Interval history: Patient has slowly improved. Presently trying to be weaned off of ventilator. Multiple subspecialist involved in care. I have reviewed their notes and orders and agree. We will continue present treatment plan Exam (Progress Note) - Constitutional Vitals: Period Temp Pulse Resp BP Sys/Sky Pulse Ox Last 24 Hr 96.3 F-98.1 F 65-97 12-26 84-141/43-90 87-100 Results - Labs CBC & BMP: 09/02/16 05:49 09/02/16 05:49 Quality Measures - VTE Contraindication to Pharmacological VTE Prophylaxis: High Risk of Bleeding
[2016-09-02] MEDS: SODIUM CHLORIDE 0.9% 1,000 ML IV SCH (21:18)
[2016-09-02] MEDS: PRAVASTATIN 40 MG TABLET PO SCH (21:19)
[2016-09-03] MEDS ORDERED: AMIODARONE 150 MG/3 ML VIAL ONE (01:17)
[2016-09-03] MEDS ORDERED: AMIODARONE INJ 150 MG in DEXTROSE 5% 100 ML IV ONE (01:19)
[2016-09-03] MEDS ORDERED: PHENYLEPHRINE DRIP 40 MG/250 ML PREMIX IV ONE (01:22)
[2016-09-03] MEDS: PHENYLEPHRINE DRIP 40 MG/250 ML PREMIX IV SCH ×3 (01:27→19:32)
[2016-09-03] MEDS: DEXTROSE 50% 25 GM/50 ML VIAL IV PRN ×5 (03:00→12:47)
[2016-09-03 03:52] LABS: Allen Test Positive; Pt O2 Delivery Device Ventilator
[2016-09-03 03:54] LABS: ABG Base Excess -3.5 MMOL/L (-2.5-2.5); ABG HCO3 21.4 MMOL/L (20-26); ABG Oxygen Saturation 89.2 % (95-100); ABG PCO2 33.5 MM HG (35-48); ABG PH 7.398 (7.35-7.45); ABG PO2 58.6 MM HG (80-95); ABG TCO2 18.9 MMOL/L (23-27)
[2016-09-03] MEDS: DOPamine 800 MG/250 ML PREMIX IV SCH (03:57)
[2016-09-03] MEDS: INSULIN REGULAR 100 UNIT/ML SUBCUT SCH ×4 (04:03→17:57)
[2016-09-03 04:59] LABS: Basophils # 0.1 10*3/uL (0.0-0.2); Basophils % 0.5 % (0.0-0.8); Eosinophils # 0.1 10*3/uL (0.0-0.87); Eosinophils % 0.2 % (0.00-10.9); Hematocrit 28.1 VOL% (35.7-47.0); Immature Granulocytes % 4.1 %; Immature Granulocytes Absolute 0.99 #; Lymphocytes # 1.2 10*3/uL (1.4-4.0); Lymphocytes % 5.1 % (21.3-54.2); Mean Corpuscular HGB Conc 35.6 GM/DL (32-36); Mean Corpuscular Hemoglobin 32 PG (27-34); Mean Corpuscular Volume 90.9 FL (87-102); Mean Platelet Volume 12.5 FL (9.6-12.0); Monocytes # 0.5 10*3/uL (0.11-0.8); Monocytes % 2.2 % (1.7-12.7); NRBC # 0.28 10*3/uL; Neutrophils # 21.1 10*3/uL (1.4-7.4); Neutrophils % 87.9 % (38.7-73.9); Platelet Count 168 T/CUMM (130-400); Red Blood Count 3.09 MC/CUMM (3.8-5.5); Red Cell Distribution Width 14.8 % (9.3-17.3)
[2016-09-03 05:45] LABS: Bilirubin,Total 0.5 MG/DL (0.2-1.0); Calcium 8.8 MG/DL (8.5-10.1); Magnesium 1.8 MG/DL (1.8-2.4); Osmolality,Calculated 273.9 MOS/KG (273-304)
[2016-09-03 05:56] LABS: Band Neutrophils 5 % (0-10); Eosinophils 2 % (0-10); Hypochromasia 2+; Lymphocytes 7 % (20-55); Platelet Estimate Normal; Segmented Neutrophils 83 % (50-85); Total Cells Counted 100
[2016-09-03] MEDS: CLINDAMYCIN INJ 600 MG in PREMIX 1 EACH IV SCH ×2 (06:30→16:34)
--- NOTE | 2016-09-03 07:06 | EKG Report ---
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
--- NOTE | 2016-09-03 07:41 | Pulmonology Progress Note ---
Pulmonary - PN: Subj Interval history: This 81-year-old white female has end-stage renal disease on peritoneal dialysis. She came in with weakness and shortness of breath and developed chest pain. She has had a myocardial infarction. Cardiac catheterization revealed right coronary disease but they were not able to intervene. Patient had a cardiac arrest with ventricular fibrillation later that day. She is now on the ventilator. She has a fairly extensive right-sided lung infiltrate. I bronchoscoped her yesterday and clean out some secretions. Gram stains show gram-positive cocci. Cultures pending. She is covered with antibiotics. On Cleocin and cefepime. ABGs are a little better. Will reduce FiO2 and PEEP and see if we can start CPAP today. Peritoneal dialysis has been held for a couple of days. Defer to nephrology. 09/01/2016 patient did not tolerate CPAP yesterday. Still has extensive right- sided infiltrate. Some secretions were suctioning per ET tube not a lot. She continues to be responsive. Has not had peritoneal dialysis as yet. She may be a little ahead on fluids. 09/02/2016 this morning patient is continuing with mechanical ventilation. She was dialyzed yesterday. Chest x-ray and arterial blood gases are pending at present. Continue to try weaning as tolerated. She did CPAP trials yesterday without difficulty. 09/03/2016 patient is doing CPAP trials but her PO2 is marginal. Chest x-ray really not improved. Had a large myocardial infarction. I do not think she is ready to be extubated yet. Exam (Progress Note) - Constitutional Vitals: Period Temp Pulse Resp BP Sys/Sky Pulse Ox Last 24 Hr 93.0 F-97.3 F 52-133 10-33 54-157/31-107 88-100 Exam: Patient mildly sedated but arousable. Moves all 4 extremities. Afebrile. Pupils react to light. Orotracheal tube in place. Neck supple no bruits. Chest shows some rhonchi on the right side. Left lung is clear. Heart normal rate and rhythm no murmurs. Abdomen is soft nontender. Bowel sounds present. Extremities no clubbing cyanosis edema. Calves nontender. Results - Labs CBC & BMP: 09/03/16 04:24 09/03/16 04:24 Lab Results: I have reviewed the past 24 hour labs - Diagnostic Findings Procedure: Chest x-ray: image reviewed by me (Right pulmonary infiltrate. Small right pleural effusion. Left lung clear. ET tube in good position.) Assessment and Plan (1) Ventricular fibrillation Status: Acute Assessment and plan: She had episode of ventricular fibrillation requiring defibrillation as well as intubation last night. Presently on ventilator and hypoxemic. I suspect that she had an aspiration event. 08/31/2016 does not appear to have any significant brain injury from the arrest. Normal rhythm now. 09/01/2016 sinus rhythm at present. 09/02/2016 normal rhythm. No apparent hypoxic brain injury. 09/03/2016 she had another run of V. tach last night. On amiodarone. Not tolerating feedings. Difficult to absorb oral medications this way. Will add Reglan Current Visit: Yes (2) Acute respiratory failure Status: Acute Assessment and plan: Hypoxemia requiring high levels of FiO2. Will increase PEEP hopefully she will tolerate that. Wean as ABGs allow. Mental status appears to be good. 08/31/2016 aspiration pneumonia right lung. Continuing mechanical ventilatory support and antibiotics. Wean when ABGs allow. 09/01/2016 ABGs look fairly good. PO2 79 on 50% with 5 of PEEP. Once again try to wean. May take a little longer for antibiotics to be effective. Probably need to offload a little fluid as well. 09/02/2016 continuing weaning trials. Hopefully can get extubated soon. ABGs and x-ray pending at present 09/03/2016 tolerating weaning trials but PO2 not as good as we need it yet. Current Visit: Yes (3) Aspiration into airway Status: Acute Assessment and plan: This is suspected based on her abnormal chest x-ray post code. pulmonary edema in an atypical fashion may give us this x-ray as well. Will cover empirically with antibiotics. 08/31/2016 clean her out yesterday with a bronchoscope. Did not see any foreign bodies. Has a right-sided pneumonia secondary to aspiration. 09/01/2016 has right-sided aspiration pneumonia. Continuing broad-spectrum antibiotics. Getting Cleocin and cefepime. Cultures negative thus far. 09/03/2016 cultures negative from bronchial washings Current Visit: Yes (4) Congestive heart failure Status: Acute Assessment and plan: Needs to resume dialysis. Defer to cardiology and nephrology. LVEDP was 20 at cath yesterday 08/31/2016 cardiology and nephrology will get therapy here. She did have an elevated LVEDP at catheterization. I do think she would be better off if she were dialyzed. 09/01/2016 I do think she needs to be dialyzed. She had elevated LVEDP at catheterization and has not been dialyzed for a few days. This would help us in weaning. 09/02/2016 this should be better post dialysis. Chest x-ray pending 09/03/2016 control with dialysis Current Visit: Yes Qualifiers: Congestive heart failure type: diastolic Congestive heart failure chronicity: acute on chronic Qualified Code(s): I50.33 - Acute on chronic diastolic (congestive) heart failure (5) ESRD on peritoneal dialysis Status: Chronic Assessment and plan: Dr. Lara to see to resume dialysis. 09/01/2016 nephrology following. 09/02/2016 received peritoneal dialysis yesterday. 09/03/2016 defer to nephrology. Need to continue with dialysis to try to decrease fluid overload situation Current Visit: Yes (6) STEMI (ST elevation myocardial infarction) Status: Acute Assessment and plan: Certainly has enzyme evidence of acute myocardial infarction. Likely the cause of her ventricular fibrillation as well. 08/31/2016 cardiac enzymes confirm myocardial infarction. 09/01/2016 status post apparently posterior myocardial infarction. Current Visit: Yes
[2016-09-03] MEDS: LEVOTHYROXINE 137 MCG TABLET PO SCH (08:34)
[2016-09-03] MEDS: AMIODARONE 200 MG TABLET PO SCH (08:34)
[2016-09-03] MEDS: CALCITRIOL 0.5 MCG CAPSULE PO SCH (08:34)
[2016-09-03] MEDS: CALCIUM ACETATE 667 MG CAPSULE PO SCH ×3 (08:34→16:50)
[2016-09-03] MEDS: CLOPIDOGREL 75 MG TABLET PO SCH (08:34)
[2016-09-03] MEDS: CILOSTAZOL 50 MG TABLET PO SCH ×2 (08:34→22:40)
[2016-09-03] MEDS: PANTOPRAZOLE 40 MG VIAL IV SCH ×2 (08:35→22:40)
[2016-09-03] MEDS: ASPIRIN CHEW 81 MG TABLET PO SCH (08:35)
[2016-09-03] MEDS: DOCUSATE SODIUM 100 MG CAPSULE PO SCH ×2 (08:35→22:40)
[2016-09-03] MEDS: CEFEPIME 500 MG in SODIUM CHLORIDE 0.9% 100 ML IV SCH ×2 (08:35→22:40)
--- NOTE | 2016-09-03 08:41 | Cardiology Progress Note ---
Assessment and Plan (1) Ventricular fibrillation Status: Acute Assessment and plan: No further ventricular fibrillation since admission but has had episodes of PVCs. She has had some of this previously. Some this may be related to her low potassium today but doubly may be because some issues and were trying to wean from dopamine to Dagoberto-Synephrine. Current Visit: Yes (2) CT, acute, non ST segment elevation Status: Acute Assessment and plan: Get her troponins were elevated but not to severe degree. Her CPKs are trended up but do not think that this is all secondary to cardiac. This may be related to other issues. Current Visit: Yes (3) Elevated troponin Status: Acute Assessment and plan: This of course secondary to her myocardial infarction. Troponins did not go up severely. Current Visit: Yes (4) Peripheral vascular disease Status: Chronic Assessment and plan: This is clinically stable. Current Visit: No (5) PAF (paroxysmal atrial fibrillation) Status: Chronic Assessment and plan: No breakthrough episodes. She has had some other atrial tachycardias before he has had this on and off some. Current Visit: No (6) Bilateral carotid artery disease Status: Chronic Current Visit: No (7) End stage renal disease on dialysis Status: Chronic Assessment and plan: Dr. Lara is treating her with her peritoneal dialysis. Current Visit: Yes (8) Anemia Status: Chronic Assessment and plan: Has a chronic element of this that is exacerbated with his adequate H&H today posttransfusion. Current Visit: Yes Qualifiers: Chronic kidney disease stage: on chronic dialysis (9) Hypotension Status: Acute Assessment and plan: Some this may be secondary to medications or other issues. We will try to switch her to low-dose Dagoberto-Synephrine off of the dopamine. Current Visit: Yes (10) Acute respiratory failure Status: Acute Assessment and plan: Acute respiratory failure that may be secondary to her aspiration. She is slowly weaning is showing evidence of improvement. If we can get her off of the ventilator then we may can stop some IV medications. If not we may have to consider a PICC line or other central line soon. Current Visit: Yes Cardiology - PN: Subj Interval history: Patient journal the last 24 hours is not having any changes. She has some PVCs last night. Worse try to switch her from dopamine to Dagoberto-Synephrine. This may help in this regard. She though has had a history of some SVT and PVCs in the past. [place] concerned with her residuals on her NG tube and she may not be absorbing her medications very well. We may have to revert back to some IV medication. Her chest x-ray has not changed much. We do not have cardiac enzymes this morning. Her CPKs had increased more than would be expected from her cardiac situation especially in light of her troponins trending down while CPK trending up. This morning her rhythm is stable. Her H&H is fairly stable. She has some element of chronic anemia. Her potassium is down a little concerned about she is not absorbing much. We may can do something with her dialysate on her peritoneal dialysis. The S nephrology about this. Certainly may need to try IV. Her sodium is low but is better than yesterday. We are going to check her cardiac enzymes this morning to see where we are with her CPK and other issues. She already has had blood drawn. Exam (Progress Note) - Constitutional Vitals: Period Temp Pulse Resp BP Sys/Sky Pulse Ox Last 24 Hr 93.0 F-97.3 F 52-133 10-33 54-157/31-107 88-100 Exam: General appearance: normal weight, intubated on propofol. She does open her eyes up to stimuli including verbal. HEENT exam: Orally intubated with NG tube. Neck exam: normal inspection no JVD. No carotid bruit. Trachea is in midline Respiratory/lungs exam: clear to auscultation anteriorly and bilaterally good air movement. Cardiovascular exam: regular rate and rhythm, no murmur noted today. Chest wall exam: No gross deformity, she does grimace a little bit with palpation. GI/Abdominal exam: Bowel sounds are present but diminished, soft. Extremeties/musculoskeletal: normal inspection without edema or cyanosis. Neurological exam: Patient on propofol but does respond to palpation of the chest as well as open her eyes when spoken to. Psychiatric exam: Patient is not agitated. She is on propofol. Skin exam: normal color, warm Result/EKG - Labs CBC & BMP: 09/03/16 04:24 09/03/16 04:24 Lab Results: I have reviewed the past 24 hour labs Labs: Laboratory Results - last 24 hr 09/02/16 09/02/16 09/02/16 00:35 06:07 06:30 WBC RBC Hgb Hct MCV MCH MCHC RDW Plt Count MPV Neut % (Auto) Lymph % (Auto) [place] % (Auto) Eos % (Auto) Baso % (Auto) Neut # (Auto) Lymph # (Auto) [place] # (Auto) Eos # (Auto) Baso # (Auto) Total Counted Immature Gran % Nucleated RBC % Immature Gran # Segmented Neutrophils Band Neutrophils Lymphocytes Monocytes Eosinophils Nucleated RBCs # Platelet Estimate Hypochromasia ABG pH ABG pCO2 ABG pO2 ABG HCO3 ABG Total CO2 ABG O2 Saturation ABG Base Excess FiO2 Sodium Potassium Chloride Carbon Dioxide Anion Gap BUN Creatinine GFR Calculation BUN/Creatinine Ratio Glucose POC Glucose 94 67 L 94 Calculated Osmolality Calcium Magnesium Total Bilirubin AST ALT Alkaline Phosphatase Total Protein Albumin Globulin Albumin/Globulin Ratio 09/02/16 09/02/16 09/02/16 11:38 12:18 12:23 WBC RBC Hgb Hct MCV MCH MCHC RDW Plt Count MPV Neut % (Auto) Lymph % (Auto) [place] % (Auto) Eos % (Auto) Baso % (Auto) Neut # (Auto) Lymph # (Auto) [place] # (Auto) Eos # (Auto) Baso # (Auto) Total Counted Immature Gran % Nucleated RBC % Immature Gran # Segmented Neutrophils Band Neutrophils Lymphocytes Monocytes Eosinophils Nucleated RBCs # Platelet Estimate Hypochromasia ABG pH ABG pCO2 ABG pO2 ABG HCO3 ABG Total CO2 ABG O2 Saturation ABG Base Excess FiO2 Sodium Potassium Chloride Carbon Dioxide Anion Gap BUN Creatinine GFR Calculation BUN/Creatinine Ratio Glucose POC Glucose 26 L* 23 L* 206 H Calculated Osmolality Calcium Magnesium Total Bilirubin AST ALT Alkaline Phosphatase Total Protein Albumin Globulin Albumin/Globulin Ratio 09/02/16 09/03/16 09/03/16 18:17 00:21 02:59 WBC RBC Hgb Hct MCV MCH MCHC RDW Plt Count MPV Neut % (Auto) Lymph % (Auto) [place] % (Auto) Eos % (Auto) Baso % (Auto) Neut # (Auto) Lymph # (Auto) [place] # (Auto) Eos # (Auto) Baso # (Auto) Total Counted Immature Gran % Nucleated RBC % Immature Gran # Segmented Neutrophils Band Neutrophils Lymphocytes Monocytes Eosinophils Nucleated RBCs # Platelet Estimate Hypochromasia ABG pH ABG pCO2 ABG pO2 ABG HCO3 ABG Total CO2 ABG O2 Saturation ABG Base Excess FiO2 Sodium Potassium Chloride Carbon Dioxide Anion Gap BUN Creatinine GFR Calculation BUN/Creatinine Ratio Glucose POC Glucose 108 H 81 < 20 L* Calculated Osmolality Calcium Magnesium Total Bilirubin AST ALT Alkaline Phosphatase Total Protein Albumin Globulin Albumin/Globulin Ratio 09/03/16 09/03/16 09/03/16 03:16 03:45 04:03 WBC RBC Hgb Hct MCV MCH MCHC RDW Plt Count MPV Neut % (Auto) Lymph % (Auto) [place] % (Auto) Eos % (Auto) Baso % (Auto) Neut # (Auto) Lymph # (Auto) [place] # (Auto) Eos # (Auto) Baso # (Auto) Total Counted Immature Gran % Nucleated RBC % Immature Gran # Segmented Neutrophils Band Neutrophils Lymphocytes Monocytes Eosinophils Nucleated RBCs # Platelet Estimate Hypochromasia ABG pH 7.398 ABG pCO2 33.5 L ABG pO2 58.6 L ABG HCO3 21.4 ABG Total CO2 18.9 L ABG O2 Saturation 89.2 L ABG Base Excess -3.5 L FiO2 50.00 Sodium Potassium Chloride Carbon Dioxide Anion Gap BUN Creatinine GFR Calculation BUN/Creatinine Ratio Glucose POC Glucose 122 H 160 H Calculated Osmolality Calcium Magnesium Total Bilirubin AST ALT Alkaline Phosphatase Total Protein Albumin Globulin Albumin/Globulin Ratio 09/03/16 09/03/16 09/03/16 04:24 04:24 06:27 WBC 24.0 H RBC 3.09 L Hgb 10.0 L Hct 28.1 L MCV 90.9 MCH 32 MCHC 35.6 RDW 14.8 Plt Count 168 MPV 12.5 H Neut % (Auto) 87.9 H Lymph % (Auto) 5.1 L [place] % (Auto) 2.2 Eos % (Auto) 0.2 Baso % (Auto) 0.5 Neut # (Auto) 21.1 H Lymph # (Auto) 1.2 L [place] # (Auto) 0.5 Eos # (Auto) 0.1 Baso # (Auto) 0.1 Total Counted 100 Immature Gran % 4.1 Nucleated RBC % 1.2 Immature Gran # 0.99 Segmented Neutrophils 83 Band Neutrophils 5 Lymphocytes 7 L Monocytes 3 Eosinophils 2 Nucleated RBCs # 0.28 Platelet Estimate Normal Hypochromasia 2+ ABG pH ABG pCO2 ABG pO2 ABG HCO3 ABG Total CO2 ABG O2 Saturation ABG Base Excess FiO2 Sodium 129 L Potassium 3.0 L Chloride 91 L Carbon Dioxide 20 L Anion Gap 21.0 H BUN 54 H Creatinine 6.60 H GFR Calculation 6 BUN/Creatinine Ratio 8.00 Glucose 124 H POC Glucose 81 Calculated Osmolality 273.9 Calcium 8.8 Magnesium 1.8 Total Bilirubin 0.50 AST 368 H ALT 117 H Alkaline Phosphatase 97 Total Protein 4.0 L Albumin 1.0 L Globulin 3.0 Albumin/Globulin Ratio 0.3 L - Impressions Impressions: Telemetry was sinus rhythm with today. Quality Measures - VTE Contraindication to Pharmacological VTE Prophylaxis: High Risk of Bleeding
--- NOTE | 2016-09-03 09:00 | Nephrology Progress Note ---
Nephrology - PN: Subj Interval history: The patient is doing acceptable. Weight is down approximately 2-1/2 kg. She did tolerate alternating and 1 exchange of 4.25% dextrose with PD. At this time will continue with that plan. We will supplement potassium today. Exam (PN)-Nephrology - Vital Signs Vital signs: Period Temp Pulse Resp BP Sys/Sky Pulse Ox Last 24 Hr 93.0 F-97.3 F 52-133 10-33 54-157/31-107 88-100 - General Appearance General appearance: well-developed, intubated EENT: ATNC Cardiology: regular rate, regular rhythm Gastrointestinal: normoactive bowel sounds, no guarding Integumentary: no rash - Lab 09/03/16 04:24 09/03/16 04:24 Most recent lab results ABG pH 7.398 (7.35-7.45) 09/03/16 03:45 ABG pCO2 33.5 MM HG (35-48) L 09/03/16 03:45 ABG pO2 58.6 MM HG (80-95) L 09/03/16 03:45 ABG HCO3 21.4 MMOL/L (20-26) 09/03/16 03:45 ABG O2 Saturation 89.2 % (95-100) L 09/03/16 03:45 Calcium 8.8 MG/DL (8.5-10.1) 09/03/16 04:24 Magnesium 1.8 MG/DL (1.8-2.4) 09/03/16 04:24 Assessment and Plan (1) Peripheral vascular disease Status: Chronic Current Visit: No (2) Rheumatoid arthritis Status: Chronic Current Visit: No Qualifiers: Rheumatoid arthritis location: knee Laterality: bilateral (3) ESRD on peritoneal dialysis Status: Chronic Assessment and plan: Continue with PD exchanges. 4.25 exchanges today all other changes will be only 2.5% dextrose. Current Visit: Yes (4) Debility Status: Chronic Current Visit: Yes (5) CAD (coronary artery disease) Status: Chronic Current Visit: Yes Qualifiers: Coronary Disease-Associated Artery/Lesion type: [place] artery (6) Hypokalemia Status: Chronic Assessment and plan: Continue to supplement potassium. Current Visit: Yes
[2016-09-03 09:53] LABS: CKMB % 3.4 %
[2016-09-03] MEDS: POTASSIUM CHLORIDE 20 MEQ TABLET PO SCH ×2 (09:53→22:40)
[2016-09-03 09:55] LABS: Troponin I Only 11.5 NG/ML (0.00-0.045)
[2016-09-03] MEDS: DESITIN 4OZ/NYSTATIN 15 GRAM MIXTURE PASTE TOP SCH ×2 (09:55→22:41)
[2016-09-03] MEDS ORDERED: AMIODARONE 450 MG/9 ML VIAL IV ONE (10:17)
[2016-09-03] MEDS ORDERED: AMIODARONE INJ 450 MG in DEXTROSE 5% 241 ML IV SCH (10:30)
--- NOTE | 2016-09-03 10:32 | XRay Report ---
Portable chest Date: 09/03/2016 Clinical history: Ventilator Comparison: 09/02/2016 Technique: Portable AP sitting chest Findings: Stable cardiomegaly and supportive devices. Reduction of parenchymal findings in the lungs with small pleural effusions. Stable mediastinum and osseous structures. Old healed rib fractures. Impression: Minimally improved infiltration/atelectasis/edema with small pleural effusions. Findings remain more prominent on the right and follow-up chest x-ray is recommended to document clearing. Stable supportive devices. PROCEDURE INTERPRETED AT [facility] DEPARTMENT OF RADIOLOGY Final Report Signed by: Dr. Jessica Hopper
[2016-09-03] MEDS ORDERED: METOCLOPRAMIDE 10 MG/2 ML VIAL ONE (10:53)
[2016-09-03] MEDS: METOCLOPRAMIDE 10 MG/2 ML VIAL IV SCH ×2 (11:15→18:05)
[2016-09-03] MEDS: ALPRAZolam 0.25 MG TABLET PO PRN (11:16)
[2016-09-03] MEDS ORDERED: BISACODYL 10 MG SUPP RECTAL ONE (14:34)
[2016-09-03] MEDS ORDERED: SODIUM PHOSPHATE ENEMA 133 ML BOTTLE RECTAL ONE (16:00)
[2016-09-03] MEDS ORDERED: SODIUM PHOSPHATE ENEMA 133 ML BOTTLE RECTAL PRN (16:23)
[2016-09-03] MEDS: AMIODARONE INJ 450 MG in DEXTROSE 5% 241 ML IV SCH (16:49)
--- NOTE | 2016-09-03 16:52 | Family Practice Progress Note ---
Family Practice - PN: Subj Interval history: Patient has slowly improved. Presently trying to be weaned off of ventilator. Multiple subspecialist involved in care. I have reviewed their notes and orders and agree. We will continue present treatment plan 09/03/16 Dr. Yan is trying CPAP trials but her O2 sats have been marginal. There is a minimal improvement in her chest x-ray today. She continues to require pressor agents. Cardiac isoenzymes have slowly improved. Dr. Nunes is making adjustments for her abnormal electrolytes. We will continue present treatment plan. Exam (Progress Note) - Constitutional Vitals: Period Temp Pulse Resp BP Sys/Sky Pulse Ox Last 24 Hr 93.0 F-99.0 F 51-133 12-33 54-171/31-107 88-100 Results - Labs CBC & BMP: 09/03/16 04:24 09/03/16 04:24 Quality Measures - VTE Contraindication to Pharmacological VTE Prophylaxis: High Risk of Bleeding
[2016-09-03] MEDS: SODIUM CHLORIDE 0.9% 1,000 ML IV SCH (16:53)
[2016-09-03] MEDS: PRAVASTATIN 40 MG TABLET PO SCH (22:40)
[2016-09-04] MEDS: DOPamine 800 MG/250 ML PREMIX IV SCH ×3 (00:41→09:16)
[2016-09-04] MEDS: CLINDAMYCIN INJ 600 MG in PREMIX 1 EACH IV SCH ×3 (00:42→15:08)
[2016-09-04] MEDS: PROPOFOL 1,000 MG/100 ML BOTTLE IV SCH (00:44)
[2016-09-04] MEDS: INSULIN REGULAR 100 UNIT/ML SUBCUT SCH ×4 (00:44→18:28)
[2016-09-04] MEDS: METOCLOPRAMIDE 10 MG/2 ML VIAL IV SCH ×4 (00:58→21:13)
[2016-09-04] MEDS: PHENYLEPHRINE DRIP 40 MG/250 ML PREMIX IV SCH ×6 (02:24→22:46)
[2016-09-04 03:59] LABS: ABG Base Excess -9.8 MMOL/L (-2.5-2.5); ABG HCO3 16.5 MMOL/L (20-26); ABG PCO2 37.9 MM HG (35-48); ABG PH 7.254 (7.35-7.45); ABG PO2 71.4 MM HG (80-95); ABG TCO2 15.5 MMOL/L (23-27); Allen Test Positive; Pt O2 Delivery Device Ventilator
[2016-09-04 05:20] LABS: Basophils # 0.1 10*3/uL (0.0-0.2); Basophils % 0.4 % (0.0-0.8); Eosinophils % 0.1 % (0.00-10.9); Hematocrit 30.3 VOL% (35.7-47.0); Hemoglobin 10.8 GM/DL (12.0-16.0); Immature Granulocytes % 8.9 %; Immature Granulocytes Absolute 2.42 #; Lymphocytes # 1.8 10*3/uL (1.4-4.0); Lymphocytes % 6.5 % (21.3-54.2); Mean Corpuscular HGB Conc 35.6 GM/DL (32-36); Mean Corpuscular Hemoglobin 33 PG (27-34); Mean Corpuscular Volume 91.5 FL (87-102); Mean Platelet Volume 12.4 FL (9.6-12.0); Monocytes # 1.4 10*3/uL (0.11-0.8); NRBC # 1.13 10*3/uL; Neutrophils # 21.4 10*3/uL (1.4-7.4); Neutrophils % 79.1 % (38.7-73.9); Platelet Count 179 T/CUMM (130-400); Red Blood Count 3.31 MC/CUMM (3.8-5.5); Red Cell Distribution Width 14.7 % (9.3-17.3); White Blood Count 27.1 T/CUMM (4-12)
[2016-09-04 05:52] LABS: Band Neutrophils 10 % (0-10); Lymphocytes 14 % (20-55); Nucleated Red Blood Cells 2 (0-5); Platelet Estimate Normal; Segmented Neutrophils 71 % (50-85); Total Cells Counted 100
[2016-09-04 05:53] LABS: Burr Cells Slight; Calcium 9.3 MG/DL (8.5-10.1); Giant Platelets Few; Hypochromasia Slight; Magnesium 1.9 MG/DL (1.8-2.4); Microcytosis Slight; Osmolality,Calculated 269.1 MOS/KG (273-304); Ovalocytes Slight; Potassium 3.7 MMOL/L (3.5-5.1)
[2016-09-04 06:17] LABS: Troponin I Only 14.2 NG/ML (0.00-0.045)
[2016-09-04 06:18] LABS: Prealbumin 5.5 MG/DL (20-40)
[2016-09-04] MEDS: DEXTROSE 50% 25 GM/50 ML VIAL IV PRN ×8 (06:58→22:36)
--- NOTE | 2016-09-04 07:09 | Pulmonology Progress Note ---
Pulmonary - PN: Subj Interval history: This 81-year-old white female has end-stage renal disease on peritoneal dialysis. She came in with weakness and shortness of breath and developed chest pain. She has had a myocardial infarction. Cardiac catheterization revealed right coronary disease but they were not able to intervene. Patient had a cardiac arrest with ventricular fibrillation later that day. She is now on the ventilator. She has a fairly extensive right-sided lung infiltrate. I bronchoscoped her yesterday and clean out some secretions. Gram stains show gram-positive cocci. Cultures pending. She is covered with antibiotics. On Cleocin and cefepime. ABGs are a little better. Will reduce FiO2 and PEEP and see if we can start CPAP today. Peritoneal dialysis has been held for a couple of days. Defer to nephrology. 09/01/2016 patient did not tolerate CPAP yesterday. Still has extensive right- sided infiltrate. Some secretions were suctioning per ET tube not a lot. She continues to be responsive. Has not had peritoneal dialysis as yet. She may be a little ahead on fluids. 09/02/2016 this morning patient is continuing with mechanical ventilation. She was dialyzed yesterday. Chest x-ray and arterial blood gases are pending at present. Continue to try weaning as tolerated. She did CPAP trials yesterday without difficulty. 09/03/2016 patient is doing CPAP trials but her PO2 is marginal. Chest x-ray really not improved. Had a large myocardial infarction. I do not think she is ready to be extubated yet. 09/04/16 patient had run of V. tach during CPAP yesterday. They were only able to do one CPAP. Chest x-ray looks a little bit better today. Still requiring pressors for cardiogenic shock. She has had a right-sided myocardial infarction. She has aspiration pneumonia involving her right lung. As this improves we may be able to allow a little higher filling pressures Exam (Progress Note) - Constitutional Vitals: Period Temp Pulse Resp BP Sys/Sky Pulse Ox Last 24 Hr 97 F-99.5 F 46-112 12-44 74-171/34-81 88-100 Exam: Patient mildly sedated but arousable. Moves all 4 extremities. Afebrile. Pupils react to light. Orotracheal tube in place. Neck supple no bruits. Chest shows some rhonchi on the right side. Left lung is clear. Heart normal rate and rhythm no murmurs. Abdomen is soft nontender. Bowel sounds present. Extremities no clubbing cyanosis edema. Calves nontender. Little change from yesterday. Results - Labs CBC & BMP: 09/04/16 05:04 09/04/16 05:04 Lab Results: I have reviewed the past 24 hour labs - Diagnostic Findings Procedure: Chest x-ray: image reviewed by me (Right pleural effusion has resolved. Right lung infiltrate looks a little better.) Assessment and Plan (1) Ventricular fibrillation Status: Acute Assessment and plan: She had episode of ventricular fibrillation requiring defibrillation as well as intubation last night. Presently on ventilator and hypoxemic. I suspect that she had an aspiration event. 08/31/2016 does not appear to have any significant brain injury from the arrest. Normal rhythm now. 09/01/2016 sinus rhythm at present. 09/02/2016 normal rhythm. No apparent hypoxic brain injury. 09/03/2016 she had another run of V. tach last night. On amiodarone. Not tolerating feedings. Difficult to absorb oral medications this way. Will add Reglan 09/04/2016 having runs of V. tach from time to time. Defer to cardiology Current Visit: Yes (2) Acute respiratory failure Status: Acute Assessment and plan: Hypoxemia requiring high levels of FiO2. Will increase PEEP hopefully she will tolerate that. Wean as ABGs allow. Mental status appears to be good. 08/31/2016 aspiration pneumonia right lung. Continuing mechanical ventilatory support and antibiotics. Wean when ABGs allow. 09/01/2016 ABGs look fairly good. PO2 79 on 50% with 5 of PEEP. Once again try to wean. May take a little longer for antibiotics to be effective. Probably need to offload a little fluid as well. 09/02/2016 continuing weaning trials. Hopefully can get extubated soon. ABGs and x-ray pending at present 09/03/2016 tolerating weaning trials but PO2 not as good as we need it yet. 09/04/16 ABGs acceptable. Patient not ready for extubation, but may be able to tolerate some CPAP. Current Visit: Yes (3) Aspiration into airway Status: Acute Assessment and plan: This is suspected based on her abnormal chest x-ray post code. pulmonary edema in an atypical fashion may give us this x-ray as well. Will cover empirically with antibiotics. 08/31/2016 clean her out yesterday with a bronchoscope. Did not see any foreign bodies. Has a right-sided pneumonia secondary to aspiration. 09/01/2016 has right-sided aspiration pneumonia. Continuing broad-spectrum antibiotics. Getting Cleocin and cefepime. Cultures negative thus far. 09/03/2016 cultures negative from bronchial washings 09/04/16 on empiric antibiotics for right-sided aspiration pneumonia. Hopefully we will see this infiltrate improve over the next few days. Current Visit: Yes (4) Congestive heart failure Status: Acute Assessment and plan: Needs to resume dialysis. Defer to cardiology and nephrology. LVEDP was 20 at cath yesterday 08/31/2016 cardiology and nephrology will get therapy here. She did have an elevated LVEDP at catheterization. I do think she would be better off if she were dialyzed. 09/01/2016 I do think she needs to be dialyzed. She had elevated LVEDP at catheterization and has not been dialyzed for a few days. This would help us in weaning. 09/02/2016 this should be better post dialysis. Chest x-ray pending 09/03/2016 control with dialysis 09/04/16 controlling fluid status with dialysis. She remains hypotensive and has some forward failure. Current Visit: Yes Qualifiers: Congestive heart failure type: diastolic Congestive heart failure chronicity: acute on chronic Qualified Code(s): I50.33 - Acute on chronic diastolic (congestive) heart failure (5) ESRD on peritoneal dialysis Status: Chronic Assessment and plan: Dr. Lara to see to resume dialysis. 09/01/2016 nephrology following. 09/02/2016 received peritoneal dialysis yesterday. 09/03/2016 defer to nephrology. Need to continue with dialysis to try to decrease fluid overload situation Current Visit: Yes (6) STEMI (ST elevation myocardial infarction) Status: Acute Assessment and plan: Certainly has enzyme evidence of acute myocardial infarction. Likely the cause of her ventricular fibrillation as well. 08/31/2016 cardiac enzymes confirm myocardial infarction. 09/01/2016 status post apparently posterior myocardial infarction. Current Visit: Yes
[2016-09-04 07:35] LABS: Bilirubin,Total 0.6 MG/DL (0.2-1.0); Calcium 9.8 MG/DL (8.5-10.1); Osmolality,Calculated 269.1 MOS/KG (273-304); Potassium 3.7 MMOL/L (3.5-5.1); Total Protein 4.1 G/DL (6.4-8.3)
--- NOTE | 2016-09-04 08:08 | XRay Report ---
History is ventilator management Comparison 09/03/2016 Heart is mildly enlarged. ET tube tip remains at T5 There remains mild diffuse hazy pulmonary opacities throughout the right lung with suspected tiny underlying right pleural effusion. A minimal linear density in the retrocardiac left base remains No new left lung consolidation seen. Impression: No significant change in diffuse right lung infiltrates and small effusion. Continued follow-up necessary PROCEDURE INTERPRETED AT [facility] DEPARTMENT OF RADIOLOGY Final Report Signed by: Dr. Naa Byers
--- NOTE | 2016-09-04 08:40 | Cardiology Progress Note ---
<Laura Jenkins E - Last Filed: 09/04/16 08:14> Assessment and Plan - Time spent with patient Time spent with patient: Greater than 30 minutes (1) Peripheral vascular disease Status: Chronic Assessment and plan: SEE PLAN OF CARE LISTED BELOW Current Visit: No (2) PAF (paroxysmal atrial fibrillation) Status: Chronic Assessment and plan: SEE PLAN OF CARE LISTED BELOW Current Visit: No (3) Congestive heart failure Status: Acute Assessment and plan: SEE PLAN OF CARE LISTED BELOW Current Visit: Yes Qualifiers: Congestive heart failure type: diastolic Congestive heart failure chronicity: acute on chronic Qualified Code(s): I50.33 - Acute on chronic diastolic (congestive) heart failure (4) End stage renal disease on dialysis Status: Chronic Assessment and plan: SEE PLAN OF CARE LISTED BELOW Current Visit: Yes (5) ESRD on peritoneal dialysis Status: Chronic Assessment and plan: SEE PLAN OF CARE LISTED BELOW Current Visit: Yes (6) Debility Status: Chronic Assessment and plan: SEE PLAN OF CARE LISTED BELOW Current Visit: Yes (7) Diastolic CHF, chronic Status: Chronic Assessment and plan: SEE PLAN OF CARE LISTED BELOW Current Visit: Yes (8) Bilateral carotid artery disease Status: Chronic Assessment and plan: SEE PLAN OF CARE LISTED BELOW Current Visit: No (9) Anemia Status: Chronic Assessment and plan: SEE PLAN OF CARE LISTED BELOW Current Visit: Yes Qualifiers: Chronic kidney disease stage: on chronic dialysis (10) AK, acute, non ST segment elevation Status: Acute Assessment and plan: SEE PLAN OF CARE LISTED BELOW Current Visit: Yes (11) Ventricular fibrillation Status: Acute Current Visit: Yes (12) Acute respiratory failure Status: Acute Assessment and plan: SEE PLAN OF CARE LISTED BELOW Current Visit: Yes (13) Aspiration into airway Status: Acute Assessment and plan: SEE PLAN OF CARE LISTED BELOW Current Visit: Yes (14) CAD (coronary artery disease) Status: Chronic Assessment and plan: SEE PLAN OF CARE LISTED BELOW Current Visit: Yes Qualifiers: Coronary Disease-Associated Artery/Lesion type: [place] artery (15) PVC (premature ventricular contraction) Status: Acute Assessment and plan: SEE PLAN OF CARE LISTED BELOW Current Visit: Yes Cardiology - PN: Subj Interval history: 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 KING SUMMARY: Ms. Fam, 81WF, admitted August 29, 2016 with NSTEMI. She was taken to the Bak[facility] Assistant per Dr. King performed heart catheterization with the following noted: Impression: 1. LV gram not done. 2. LVEDP is mildly elevated at 20 mmHg. 3. There is no gradient across the aortic valve. 4. Left main coronary ostial calcification and less than 20% stenosis. 5. LAD with some mid calcification but widely patent. 6. Circumflex artery with mid 50-60% stenosis. Second obtuse marginal branch with complex thrombus in its distal portion. 7. RCA has a very a variant takeoff from the ostium of the left main coronary artery. 99% mid stenosis with LORETO II to III flow. 8. Failed attempt at opening RCA stenosis with closure of the vessel. 9. Right common femoral artery hemostasis obtained by direct manual pressure. Discussion: The thrombus in the second obtuse marginal branch was probably the culprit disease causing her recent symptoms elevated troponin. This though he probably been there for over 12-24 hours. Because this location and it was complex and multiple branches the distal vessel it was felt that would not be appropriate at this point to intervene. There is low vessel beyond the thrombus. The RCA certainly could cause symptoms but we did not have really significant symptoms after closure of the RCA. It was a very difficult vessel to intervene on because of its takeoff. He was a small vessel at mid vessel and beyond. We will treat the patient medically at this time. The evening of (post) heart cathterization, experienced ventricular fibrillation. Required CPR and was intubated. IV Amiodarone was initiated without return of vfib. Occasional PVCs, chronic. Being treated for aspiration pneumonia. Nephrology is following and she does have chronic peritoneal dialysis. Echocardiogram: EF 55% - 60%, mild to moderate MR, PAP 34 - 39mmHg. SEPTEMBER 04, 2016: Over the weekend, Dagoberto-Synephrine was initiated as we are weaning off dopamine in an effort to decrease her PVCs. This morning, patient had 3 episodes of sinus bradycardia heart rates in the 40s by report. She is currently on IV amiodarone and oral Amiodarone. She is not tolerating tube feedings well and I will stop the oral Amiodarone continue IV. CPKs have trended up. Dr. King has felt this is not related to a cardiac condition but related to her other issues. She is responding only to deep pain. Will ask him to record more telemetry strips, particularly arrhythmias (sinus bradycardia ). Anemia stable on low-dose aspirin, Plavix and Pletal. Will further discuss with Dr. Martinez and await additional recommendations. ASSESSMENT/PLAN: 1. NSTEMI - has been able to tolerate Aspirin, Plavix. Unable to incorporate beta-blockade or MANDEEP inhibitor at this time due to hypotension. On a lipid- lowering agent at this may be held depending on the results of the LFTs this morning. 2. CAD - see cardiac catheterization report listed above. 3. V-FIB ARREST - continue current plan of care. No documented reoccurrence. Continue IV Amiodorone, stop NGT Amiodorone. 4. HYPOTENSION - currently being maintained on Dopamine and being transitioned to Dagoberto. 5. CKD REQUIRING PERITONEAL DIALYSIS - nephrology following 6. DYSLIPIDEMIA - holding Pravastatin for abnormal LFTs, AST, ALT. 7. ACUTE RESPIRATORY FAILURE - intubated. No improvement over the weekend. Appreciate Pulm assistance. 8. ASPIRATION PNEUMONIA - on appropriate antibiotic regiment. 9. ACUTE ON CHRONIC DIASTOLIC CHF, NYHA Class IV - LVEDP was 20 at cath. Continue current plan of care. 10. ANEMIA - stable on Aspirin, Plavix, Pletal. 11. PVCs - over the weekend PVCs noted. I see no recording/telemetry and will ask to routinely record. Transitioning from Dopamine to Dagoberto today. Exam (Progress Note) - Constitutional Vitals: Period Temp Pulse Resp BP Sys/Sky Pulse Ox Last 24 Hr 97 F-99.5 F 46-112 12-44 74-171/34-81 88-100 Exam: General: [Appears ill, moves minimally to deep pain. ] HEENT: [Atraumatic. Mucous membranes moist. No jaundice noted. Conjunctiva moist and clear, sclerae anicteric] Neck: No obvious JVD/HJR, no thyromegaly or lymphadenopathy noted. Cardiac: [Regular rate and rhythm. [II/ HSM heard best at 5ICS left. Lungs: [Course sounds throughout. Remains intubated with symmetrical chest wall movements. Abdomen: Soft, bowel sounds hypoactive. Nontender. Musculoskeletal: No fluid collection. Decreased range of motion is noted. Extremities: No clubbing, cyanosis noted. [ Upper extremity pulses 2+. Lower extremity pulses 1+. Capillary refill less sluggish Skin: No unusual lesions or rashes. No skin breakdown appreciated. Neuro: No obvious interaction. Responds minimally to deep pain. No essential tremor is appreciated. Result/EKG - Labs CBC & BMP: 09/04/16 05:04 09/04/16 05:04 Lab Results: I have reviewed the past 24 hour labs Labs: Laboratory Results - last 24 hr 09/03/16 09/03/16 09/03/16 04:24 09:26 12:26 WBC RBC Hgb Hct MCV MCH MCHC RDW Plt Count MPV Neut % (Auto) Lymph % (Auto) [place] % (Auto) Eos % (Auto) Baso % (Auto) Neut # (Auto) Lymph # (Auto) [place] # (Auto) Eos # (Auto) Baso # (Auto) Total Counted Immature Gran % Nucleated RBC % Immature Gran # Segmented Neutrophils Band Neutrophils Lymphocytes Monocytes Nucleated RBCs Nucleated RBCs # Platelet Estimate Giant Platelets Hypochromasia Microcytosis Ovalocytes Sergio Cells ABG pH ABG pCO2 ABG pO2 ABG HCO3 ABG Total CO2 ABG O2 Saturation ABG Base Excess FiO2 Sodium Potassium Chloride Carbon Dioxide Anion Gap BUN Creatinine GFR Calculation BUN/Creatinine Ratio Glucose POC Glucose 61 L < 20 L* Calculated Osmolality Calcium Phosphorus Magnesium Total Bilirubin AST ALT Alkaline Phosphatase Total Creatine Kinase 5534 H D CK-MB (CK-2) 187.7 H D CK and CKMB Interp 3.4 Troponin I 11.500 H D Total Protein Albumin Globulin Albumin/Globulin Ratio Prealbumin 09/03/16 09/03/16 09/03/16 12:51 12:54 17:51 WBC RBC Hgb Hct MCV MCH MCHC RDW Plt Count MPV Neut % (Auto) Lymph % (Auto) [place] % (Auto) Eos % (Auto) Baso % (Auto) Neut # (Auto) Lymph # (Auto) [place] # (Auto) Eos # (Auto) Baso # (Auto) Total Counted Immature Gran % Nucleated RBC % Immature Gran # Segmented Neutrophils Band Neutrophils Lymphocytes Monocytes Nucleated RBCs Nucleated RBCs # Platelet Estimate Giant Platelets Hypochromasia Microcytosis Ovalocytes [place] Cells ABG pH ABG pCO2 ABG pO2 ABG HCO3 ABG Total CO2 ABG O2 Saturation ABG Base Excess FiO2 Sodium Potassium Chloride Carbon Dioxide Anion Gap BUN Creatinine GFR Calculation BUN/Creatinine Ratio Glucose POC Glucose < 20 L* 291 H 78 Calculated Osmolality Calcium Phosphorus Magnesium Total Bilirubin AST ALT Alkaline Phosphatase Total Creatine Kinase CK-MB (CK-2) CK and CKMB Interp Troponin I Total Protein Albumin Globulin Albumin/Globulin Ratio Prealbumin 09/03/16 09/04/16 09/04/16 21:11 00:33 03:45 WBC RBC Hgb Hct MCV MCH MCHC RDW Plt Count MPV Neut % (Auto) Lymph % (Auto) [place] % (Auto) Eos % (Auto) Baso % (Auto) Neut # (Auto) Lymph # (Auto) [place] # (Auto) Eos # (Auto) Baso # (Auto) Total Counted Immature Gran % Nucleated RBC % Immature Gran # Segmented Neutrophils Band Neutrophils Lymphocytes Monocytes Nucleated RBCs Nucleated RBCs # Platelet Estimate Giant Platelets Hypochromasia Microcytosis Ovalocytes [place] Cells ABG pH 7.254 L ABG pCO2 37.9 ABG pO2 71.4 L ABG HCO3 16.5 L ABG Total CO2 15.5 L ABG O2 Saturation 91.0 L ABG Base Excess -9.8 L FiO2 80.00 Sodium Potassium Chloride Carbon Dioxide Anion Gap BUN Creatinine GFR Calculation BUN/Creatinine Ratio Glucose POC Glucose 92 84 Calculated Osmolality Calcium Phosphorus Magnesium Total Bilirubin AST ALT Alkaline Phosphatase Total Creatine Kinase CK-MB (CK-2) CK and CKMB Interp Troponin I Total Protein Albumin Globulin Albumin/Globulin Ratio Prealbumin 09/04/16 09/04/16 09/04/16 05:04 05:04 05:04 WBC 27.1 H RBC 3.31 L Hgb 10.8 L Hct 30.3 L MCV 91.5 MCH 33 MCHC 35.6 RDW 14.7 Plt Count 179 MPV 12.4 H Neut % (Auto) 79.1 H Lymph % (Auto) 6.5 L [place] % (Auto) 5.0 Eos % (Auto) 0.1 Baso % (Auto) 0.4 Neut # (Auto) 21.4 H Lymph # (Auto) 1.8 [place] # (Auto) 1.4 H Eos # (Auto) 0.0 Baso # (Auto) 0.1 Total Counted 100 Immature Gran % 8.9 Nucleated RBC % 4.2 Immature Gran # 2.42 Segmented Neutrophils 71 Band Neutrophils 10 Lymphocytes 14 L Monocytes 5 Nucleated RBCs 2 Nucleated RBCs # 1.13 Platelet Estimate Normal Giant Platelets Few Hypochromasia Slight Microcytosis Slight Ovalocytes Slight [place] Cells Slight ABG pH ABG pCO2 ABG pO2 ABG HCO3 ABG Total CO2 ABG O2 Saturation ABG Base Excess FiO2 Sodium 128 L Potassium 3.7 Chloride 94 L Carbon Dioxide 15 L Anion Gap 22.7 H BUN 47 H Creatinine 5.70 H GFR Calculation 7 BUN/Creatinine Ratio 8.00 Glucose 114 H POC Glucose Calculated Osmolality 269.1 L Calcium 9.3 Phosphorus 6.0 H Magnesium 1.9 Total Bilirubin AST ALT Alkaline Phosphatase Total Creatine Kinase CK-MB (CK-2) CK and CKMB Interp Troponin I Total Protein Albumin Globulin Albumin/Globulin Ratio Prealbumin 5.5 L 09/04/16 09/04/16 05:04 05:04 WBC RBC Hgb Hct MCV MCH MCHC RDW Plt Count MPV Neut % (Auto) Lymph % (Auto) [place] % (Auto) Eos % (Auto) Baso % (Auto) Neut # (Auto) Lymph # (Auto) [place] # (Auto) Eos # (Auto) Baso # (Auto) Total Counted Immature Gran % Nucleated RBC % Immature Gran # Segmented Neutrophils Band Neutrophils Lymphocytes Monocytes Nucleated RBCs Nucleated RBCs # Platelet Estimate Giant Platelets Hypochromasia Microcytosis Ovalocytes Sergio Cells ABG pH ABG pCO2 ABG pO2 ABG HCO3 ABG Total CO2 ABG O2 Saturation ABG Base Excess FiO2 Sodium 128 L Potassium 3.7 Chloride 95 L Carbon Dioxide 13 L Anion Gap 23.7 H BUN 46 H Creatinine 5.60 H GFR Calculation 7 BUN/Creatinine Ratio 8.00 Glucose 110 H POC Glucose Calculated Osmolality 269.1 L Calcium 9.8 Phosphorus Magnesium Total Bilirubin 0.60 AST 1383 H ALT 444 H Alkaline Phosphatase 150 H Total Creatine Kinase 4166 H D CK-MB (CK-2) 123.3 H D CK and CKMB Interp 3.0 Troponin I 14.200 H D Total Protein 4.1 L Albumin 1.0 L Globulin 3.1 Albumin/Globulin Ratio 0.3 L Prealbumin - Diagnostic Findings Procedure: Chest x-ray: report reviewed by me - EKG EKG results: interpreted by me EKG shows: sinus rhythm Quality Measures - VTE Contraindication to Pharmacological VTE Prophylaxis: High Risk of Bleeding <Reymundo Martinez - Last Filed: 09/04/16 11:41> Exam (Progress Note) - Constitutional Vitals: Period Temp Pulse Resp BP Sys/Sky Pulse Ox Last 24 Hr 97 F-99.5 F 46-112 12-44 74-153/34-81 91-100 Result/EKG - Labs CBC & BMP: 09/04/16 05:04 09/04/16 05:04 Labs: Laboratory Results - last 24 hr 09/03/16 09/03/16 09/03/16 09:26 12:26 12:51 WBC RBC Hgb Hct MCV MCH MCHC RDW Plt Count MPV Neut % (Auto) Lymph % (Auto) [place] % (Auto) Eos % (Auto) Baso % (Auto) Neut # (Auto) Lymph # (Auto) [place] # (Auto) Eos # (Auto) Baso # (Auto) Total Counted Immature Gran % Nucleated RBC % Immature Gran # Segmented Neutrophils Band Neutrophils Lymphocytes Monocytes Nucleated RBCs Nucleated RBCs # Platelet Estimate Giant Platelets Hypochromasia Microcytosis Ovalocytes [place] Cells ABG pH ABG pCO2 ABG pO2 ABG HCO3 ABG Total CO2 ABG O2 Saturation ABG Base Excess FiO2 Sodium Potassium Chloride Carbon Dioxide Anion Gap BUN Creatinine GFR Calculation BUN/Creatinine Ratio Glucose POC Glucose 61 L < 20 L* < 20 L* Calculated Osmolality Calcium Phosphorus Magnesium Total Bilirubin AST ALT Alkaline Phosphatase Total Creatine Kinase CK-MB (CK-2) CK and CKMB Interp Troponin I Total Protein Albumin Globulin Albumin/Globulin Ratio Prealbumin 09/03/16 09/03/16 09/03/16 12:54 17:51 21:11 WBC RBC Hgb Hct MCV MCH MCHC RDW Plt Count MPV Neut % (Auto) Lymph % (Auto) [place] % (Auto) Eos % (Auto) Baso % (Auto) Neut # (Auto) Lymph # (Auto) [place] # (Auto) Eos # (Auto) Baso # (Auto) Total Counted Immature Gran % Nucleated RBC % Immature Gran # Segmented Neutrophils Band Neutrophils Lymphocytes Monocytes Nucleated RBCs Nucleated RBCs # Platelet Estimate Giant Platelets Hypochromasia Microcytosis Ovalocytes Sergio Cells ABG pH ABG pCO2 ABG pO2 ABG HCO3 ABG Total CO2 ABG O2 Saturation ABG Base Excess FiO2 Sodium Potassium Chloride Carbon Dioxide Anion Gap BUN Creatinine GFR Calculation BUN/Creatinine Ratio Glucose POC Glucose 291 H 78 92 Calculated Osmolality Calcium Phosphorus Magnesium Total Bilirubin AST ALT Alkaline Phosphatase Total Creatine Kinase CK-MB (CK-2) CK and CKMB Interp Troponin I Total Protein Albumin Globulin Albumin/Globulin Ratio Prealbumin 09/04/16 09/04/16 09/04/16 00:33 03:45 05:04 WBC 27.1 H RBC 3.31 L Hgb 10.8 L Hct 30.3 L MCV 91.5 MCH 33 MCHC 35.6 RDW 14.7 Plt Count 179 MPV 12.4 H Neut % (Auto) 79.1 H Lymph % (Auto) 6.5 L [place] % (Auto) 5.0 Eos % (Auto) 0.1 Baso % (Auto) 0.4 Neut # (Auto) 21.4 H Lymph # (Auto) 1.8 [place] # (Auto) 1.4 H Eos # (Auto) 0.0 Baso # (Auto) 0.1 Total Counted 100 Immature Gran % 8.9 Nucleated RBC % 4.2 Immature Gran # 2.42 Segmented Neutrophils 71 Band Neutrophils 10 Lymphocytes 14 L Monocytes 5 Nucleated RBCs 2 Nucleated RBCs # 1.13 Platelet Estimate Normal Giant Platelets Few Hypochromasia Slight Microcytosis Slight Ovalocytes Slight Sergio Cells Slight ABG pH 7.254 L ABG pCO2 37.9 ABG pO2 71.4 L ABG HCO3 16.5 L ABG Total CO2 15.5 L ABG O2 Saturation 91.0 L ABG Base Excess -9.8 L FiO2 80.00 Sodium Potassium Chloride Carbon Dioxide Anion Gap BUN Creatinine GFR Calculation BUN/Creatinine Ratio Glucose POC Glucose 84 Calculated Osmolality Calcium Phosphorus Magnesium Total Bilirubin AST ALT Alkaline Phosphatase Total Creatine Kinase CK-MB (CK-2) CK and CKMB Interp Troponin I Total Protein Albumin Globulin Albumin/Globulin Ratio Prealbumin 09/04/16 09/04/16 09/04/16 05:04 05:04 05:04 WBC RBC Hgb Hct MCV MCH MCHC RDW Plt Count MPV Neut % (Auto) Lymph % (Auto) [place] % (Auto) Eos % (Auto) Baso % (Auto) Neut # (Auto) Lymph # (Auto) [place] # (Auto) Eos # (Auto) Baso # (Auto) Total Counted Immature Gran % Nucleated RBC % Immature Gran # Segmented Neutrophils Band Neutrophils Lymphocytes Monocytes Nucleated RBCs Nucleated RBCs # Platelet Estimate Giant Platelets Hypochromasia Microcytosis Ovalocytes Sergio Cells ABG pH ABG pCO2 ABG pO2 ABG HCO3 ABG Total CO2 ABG O2 Saturation ABG Base Excess FiO2 Sodium 128 L 128 L Potassium 3.7 3.7 Chloride 94 L 95 L Carbon Dioxide 15 L 13 L Anion Gap 22.7 H 23.7 H BUN 47 H 46 H Creatinine 5.70 H 5.60 H GFR Calculation 7 7 BUN/Creatinine Ratio 8.00 8.00 Glucose 114 H 110 H POC Glucose Calculated Osmolality 269.1 L 269.1 L Calcium 9.3 9.8 Phosphorus 6.0 H Magnesium 1.9 Total Bilirubin 0.60 AST 1383 H ALT 444 H Alkaline Phosphatase 150 H Total Creatine Kinase CK-MB (CK-2) CK and CKMB Interp Troponin I Total Protein 4.1 L Albumin 1.0 L Globulin 3.1 Albumin/Globulin Ratio 0.3 L Prealbumin 5.5 L 09/04/16 05:04 WBC RBC Hgb Hct MCV MCH MCHC RDW Plt Count MPV Neut % (Auto) Lymph % (Auto) [place] % (Auto) Eos % (Auto) Baso % (Auto) Neut # (Auto) Lymph # (Auto) [place] # (Auto) Eos # (Auto) Baso # (Auto) Total Counted Immature Gran % Nucleated RBC % Immature Gran # Segmented Neutrophils Band Neutrophils Lymphocytes Monocytes Nucleated RBCs Nucleated RBCs # Platelet Estimate Giant Platelets Hypochromasia Microcytosis Ovalocytes Sergio Cells ABG pH ABG pCO2 ABG pO2 ABG HCO3 ABG Total CO2 ABG O2 Saturation ABG Base Excess FiO2 Sodium Potassium Chloride Carbon Dioxide Anion Gap BUN Creatinine GFR Calculation BUN/Creatinine Ratio Glucose POC Glucose Calculated Osmolality Calcium Phosphorus Magnesium Total Bilirubin AST ALT Alkaline Phosphatase Total Creatine Kinase 4166 H D CK-MB (CK-2) 123.3 H D CK and CKMB Interp 3.0 Troponin I 14.200 H D Total Protein Albumin Globulin Albumin/Globulin Ratio Prealbumin
[2016-09-04] MEDS: AMIODARONE INJ 450 MG in DEXTROSE 5% 241 ML IV SCH ×3 (09:18→23:27)
[2016-09-04] MEDS: CEFEPIME 500 MG in SODIUM CHLORIDE 0.9% 100 ML IV SCH ×2 (09:40→21:14)
[2016-09-04] MEDS: PANTOPRAZOLE 40 MG VIAL IV SCH ×2 (10:00→22:18)
[2016-09-04] MEDS: ASPIRIN CHEW 81 MG TABLET PO SCH (10:01)
[2016-09-04] MEDS: CILOSTAZOL 50 MG TABLET PO SCH ×2 (10:01→21:56)
[2016-09-04] MEDS: CALCIUM ACETATE 667 MG CAPSULE PO SCH ×3 (10:01→18:40)
[2016-09-04] MEDS: CALCITRIOL 0.5 MCG CAPSULE PO SCH (10:01)
[2016-09-04] MEDS: LEVOTHYROXINE 137 MCG TABLET PO SCH (10:01)
--- NOTE | 2016-09-04 10:01 | EKG Report ---
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
[2016-09-04] MEDS: DESITIN 4OZ/NYSTATIN 15 GRAM MIXTURE PASTE TOP SCH ×2 (10:02→22:09)
[2016-09-04] MEDS: CLOPIDOGREL 75 MG TABLET PO SCH (10:02)
[2016-09-04] MEDS: POTASSIUM CHLORIDE 20 MEQ TABLET PO SCH ×2 (10:02→21:55)
[2016-09-04] MEDS: DOCUSATE SODIUM 100 MG CAPSULE PO SCH ×2 (10:03→21:55)
[2016-09-04] MEDS ORDERED: ROSUVASTATIN 20 MG TABLET PO SCH (12:00)
[2016-09-04] MEDS ORDERED: VANCOMYCIN INJ 1,000 MG in SODIUM CHLORIDE 0.9% 250 ML IV ONE (12:30)
[2016-09-04] MEDS: SODIUM BICARB INJ 100 MEQ in DEXTROSE 5% NACL 0.45% 1,000 ML IV SCH (12:37)
--- NOTE | 2016-09-04 18:45 | Internal Med Progress Note ---
Assessment and Plan (1) Acute ID Status: Acute Current Visit: Yes Qualifiers: Myocardial infarction ST status: non-ST elevation myocardial infarction Qualified Code(s): I21.4 - Non-ST elevation (NSTEMI) myocardial infarction (2) Acute respiratory failure Status: Acute Current Visit: Yes (3) Aspiration into airway Status: Acute Current Visit: Yes (4) Generalized weakness Problem details: acutely worsened Status: Chronic Current Visit: Yes (5) Anemia Status: Chronic Current Visit: Yes Qualifiers: Chronic kidney disease stage: on chronic dialysis (6) ESRD on peritoneal dialysis Status: Chronic Current Visit: Yes (7) Atherosclerotic cardiovascular disease Status: Chronic Current Visit: Yes Internal Medicine - PN: Subj Interval history: This is a 81 year old female with history of ESRD on peritoneal dialysis, HTN, atherosclerotic disease, dyslipidemia, history ID, OA with chronic back pain and mobility issues, who presented to ER with acute ID and underwent emergent cardiac catheterization. CAD with largely occluded RCA and obtuse marginal branch and stent couldn't be placed. She is not a candidate for CABG because of significant comorbidities. She went into V fib post cath and is now in CCU on ventilator support and pressor support. Family at bedside on rounds today. Daughter reports that patient had worsening fatigue over last 2-3 days, and fatigue had been developing over the last month. She had chest pain in ER, but had not complained of pain at home. She was fatigued in recent outpatient dialysis and was given fluid for low normotensive blood pressure noted at the time. Chest x-ray shows right lung extensive infiltrate and she is being treated for aspiration. Dr. Yan following and covering her with Cefepime. Sunday, she is in liver failure and failure to thrive. is now agreeable with DNR status. Multiple electrolyte abnormalities. Exam (Progress Note) - Constitutional Vitals: Period Temp Pulse Resp BP Sys/Sky Pulse Ox Last 24 Hr 96.6 F-97.3 F 46-97 13-44 70-153/23-81 91-100 Exam: General appearance: other (awake on vent) - Respiratory Respiratory exam: Present: clear to auscultation bilaterally - Cardiovascular Cardiovascular exam: Present: regular rate and rhythm - GI/Abdominal GI/Abdominal exam: Present: soft - Extremities Exam Extremities exam: Absent: edema - Neurological Exam Neurological exam: Present: other (awake but not alert) - Skin Skin exam: Present: warm, dry, pallor Results - Labs CBC & BMP: 09/04/16 05:04 09/04/16 05:04 Quality Measures - VTE Contraindication to Pharmacological VTE Prophylaxis: High Risk of Bleeding
[2016-09-04] MEDS ORDERED: DEXTROSE 10% 1,000 ML IV SCH (22:45)
--- NOTE | 2016-09-04 23:06 | Nephrology Progress Note ---
Nephrology - PN: Subj Interval history: She remains on the ventilator. She is less responsive today. She had significant hypoglycemia earlier today. She is requiring pressor support Exam (PN)-Nephrology - Vital Signs Vital signs: Period Temp Pulse Resp BP Sys/Sky Pulse Ox Last 24 Hr 96.6 F-97.3 F 46-97 22-44 70-161/23-81 91-100 Exam: Gen.: Sedated on ventilator ENT: Pupils equal round reactive to light. Neck: Supple. No JVD or bruit. Cardiovascular: Regular rate and rhythm. No murmur rub or gallop Lungs: Few rhonchi on the right. Left clear Abdomen: Soft. Nontender. Positive bowel sounds. No organomegaly Extremities: Trace edema - Lab 09/04/16 05:04 09/04/16 05:04 Most recent lab results ABG pH 7.254 (7.35-7.45) L 09/04/16 03:45 ABG pCO2 37.9 MM HG (35-48) 09/04/16 03:45 ABG pO2 71.4 MM HG (80-95) L 09/04/16 03:45 ABG HCO3 16.5 MMOL/L (20-26) L 09/04/16 03:45 ABG O2 Saturation 91.0 % (95-100) L 09/04/16 03:45 Calcium 9.8 MG/DL (8.5-10.1) 09/04/16 05:04 Phosphorus 6.0 MG/DL (2.5-4.9) H 09/04/16 05:04 Magnesium 1.9 MG/DL (1.8-2.4) 09/04/16 05:04 Assessment and Plan (1) End stage renal disease on dialysis Status: Chronic Assessment and plan: 81-year-old woman admitted with: * Acute RI. Status post cardiac cath. Complicated by ventricular fibrillation and ventilatory failure. * Hypotension. Improved with dopamine * Aspiration pneumonia * ESRD. Continue 2.5% exchanges. She will likely not tolerate volume removal due to hypotension * Hypoglycemia * Metabolic acidosis. IV fluid changed to D5W +2 A of sodium bicarb * Anemia. Improved after transfusion * Paroxysmal A. fib * Peripheral vascular disease Current Visit: Yes (2) Acute respiratory failure Status: Acute Current Visit: Yes (3) RI, acute, non ST segment elevation Status: Acute Current Visit: Yes (4) Ventricular fibrillation Status: Acute Current Visit: Yes (5) Anemia Status: Chronic Current Visit: Yes Qualifiers: Chronic kidney disease stage: on chronic dialysis (6) Hypertension Status: Chronic Current Visit: No Qualifiers: Hypertension type: essential hypertension Qualified Code(s): I10 - Essential (primary) hypertension (7) Hypothyroidism (acquired) Status: Chronic Current Visit: No (8) PAF (paroxysmal atrial fibrillation) Status: Chronic Current Visit: No (9) Peripheral vascular disease Status: Chronic Current Visit: No
[2016-09-05] MEDS: PHENYLEPHRINE DRIP 40 MG/250 ML PREMIX IV SCH ×2 (00:41→02:35)
[2016-09-05] MEDS: PROPOFOL 1,000 MG/100 ML BOTTLE IV SCH (00:45)
[2016-09-05] MEDS: CLINDAMYCIN INJ 600 MG in PREMIX 1 EACH IV SCH (01:07)
[2016-09-05] MEDS: METOCLOPRAMIDE 10 MG/2 ML VIAL IV SCH (01:08)
[2016-09-05] MEDS: DEXTROSE 50% 25 GM/50 ML VIAL IV PRN (01:14)
[2016-09-05] MEDS: INSULIN REGULAR 100 UNIT/ML SUBCUT SCH (01:15)
[2016-09-05] MEDS: SODIUM BICARB INJ 100 MEQ in DEXTROSE 5% NACL 0.45% 1,000 ML IV SCH (06:14)
[2016-09-05 06:24] VITALS: BP 58/27
--- NOTE | 2016-09-08 13:39 | Event Note ---
This is a 81 year old female with ESRD on peritoneal dialysis, HTN, CAD, PAD, COPD, OA, who had presented to ER with chest pain and found to be having active MN. She underwent cardiac catheterization, and acute coronary thrombus noted, but stent could not be placed. She required ventilator support for respiratory failure and pressors for hypotension, likely from cardiogenic shock. Hypotension progressed during the night of September 04. The family decided to not have more pressors added, and DNR status was applied. 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
== END 2016-09-05 04:00 | disposition expired ==
LOC: EDUNIT# → N.ED 14:59 → N.EDINP 14:59 → N.CC 19:07
PROVIDERS: ADMIT Emergency Medicine; ATTEND Emergency Medicine
PROC: CLCCHCL (ICD-10-PCS; 2016-08-29 19:15)